=== PATIENT | female | born 1935 | race Caucasian/White ===

== ENCOUNTER 2016-10-23 17:13 | Inpatient (IN) | payer MEDICARE ==
[~2016-10-23] VITALS: Ht 157.5 cm; Wt 48.4 kg
[2016-10-23] MEDS ORDERED: DONETAB6 PO (17:53)
[2016-10-23] MEDS ORDERED: NAPR500T PO (17:53)
[2016-10-23] MEDS ORDERED: NAME5TAB13 PO (17:53)
[2016-10-23] MEDS ORDERED: NS 500 ML IV ONE (20:30)
[2016-10-23] MEDS ORDERED: ONDANSETRON 4MG/2ML VIAL (J2405) IV ONE (20:30)
[2016-10-23 21:15] LABS: BASO % 0.5 % (0.0-1.0); EOS # 0.1 K/mm3 (0.0-0.50); EOS % 0.9 % (0.0-3.0); LARGE UNSTAINED CELL # 0.1 K/mm3 (0.0-0.4); LARGE UNSTAINED CELL % 0.8 % (0.0-4.0); LYMPH % 10.4 % (24.0-44.0); MEAN CORPUSCULAR HEMOGLOBIN 33.2 pg (27.0-33.0); MEAN CORPUSCULAR HGB CONC 34.3 g/dl (32.0-36.5); MEAN CORPUSCULAR VOLUME 96.9 fl (80.0-96.0); MONO # 0.4 K/mm3 (0.0-0.8); MONO % 4.8 % (0.0-5.0); NEUTROPHILS # 7.1 K/mm3 (1.8-7.7); NEUTROPHILS % 82.6 % (36.0-66.0); PLATELET COUNT, AUTOMATED 236 k/mm3 (150-450); RED CELL DISTRIBUTION WIDTH 13.2 % (11.5-14.5); WHITE BLOOD COUNT 8.6 K/mm3 (4.0-10.0)
[2016-10-23 21:21] LABS: INR 0.91
[2016-10-23] MEDS ORDERED: LABETALOL HCL 100 MG/20 ML VIAL IV STA (21:22)
[2016-10-23 21:44] LABS: ALBUMIN/GLOBULIN RATIO 1.47 (1.00-1.93); ALKALINE PHOSPHATASE 94 U/L (45-117); ALT/SGPT 29 U/L (12-78); ANION GAP 12 MEQ/L (8-16); AST/SGOT 45 U/L (15-37); BILIRUBIN,DIRECT < 0.1 MG/DL (0.0-0.2); BILIRUBIN,TOTAL 0.7 MG/DL (0.2-1.0); BLOOD UREA NITROGEN 20 MG/DL (7-18); CALCIUM LEVEL 9.2 MG/DL (8.8-10.2); CARBON DIOXIDE LEVEL 23 MEQ/L (21-32); CHLORIDE LEVEL 93 MEQ/L (98-107); CREATININE FOR GFR 1.31 MG/DL (0.55-1.02); GLOMERULAR FILTRATION RATE 41.5 (>32); GLUCOSE, FASTING 122 MG/DL (83-110); POTASSIUM SERUM 3.9 MEQ/L (3.5-5.1); SODIUM LEVEL 128 MEQ/L (136-145); TOTAL PROTEIN 8.4 GM/DL (6.4-8.2)
--- NOTE | 2016-10-23 23:10 | REPUSA ---
CLINICAL HISTORY: Headache. TECHNIQUE: Multiple axial CT images were obtained through the brain without IV contrast material. COMMENTS: There is normal configuration of sella turcica. There are no intra or extra-axial collections. There is no mass effect or midline shift. There is no evidence of hematoma formation. No hydrocephalus is p resent. The ventricles are symmetrical. No abnormal calcifications are present. There is diffuse age-appropriate cerebellar and cerebral atrophy with proportionally dilated ventricl es and cortical sulci. There are bilateral periventricular and subcortical white matter hypolucencies compatible with chroni c microvascular disease. Otherwise, no significant focal abnormalities are seen either in the posterior fossa or supratentoria l compartment. IMPRESSION: 1. Age-appropriate cerebellar and cerebral atrophy. 2. Chronic microvascular disease. 3. No evidence of acute intracranial pathology. Thank you for your kind referral of this patient.
[2016-10-23] MEDS ORDERED: MEMA1TAB2 PO (23:27)
[2016-10-23] MEDS ORDERED: LEVO100T5 PO (23:30)
[2016-10-23] MEDS ORDERED: PANT40TA2 PO (23:30)
[2016-10-23] MEDS ORDERED: STOO100C PO (23:30)
[2016-10-23] MEDS ORDERED: VERA180C PO (23:30)
[2016-10-24] VITALS (9 sets, daily range): BP systolic 133–178; BP diastolic 62–99
[2016-10-24] MEDS: NS 1,000 ML IV SCH ×2 (02:15→14:46)
[2016-10-24] MEDS ORDERED: ASPIRIN 325 MG TAB PO ONE (03:30)
[2016-10-24] MEDS ORDERED: ATORVASTATIN 20 MG TAB PO ONE (03:30)
[2016-10-24] MEDS: hydrALAZINE INJ 20 MG/ML VIAL IV SCH ×5 (03:47→21:20)
--- NOTE | 2016-10-24 04:48 | HPE ---
DATE OF ADMISSION: 10/24/2016 PRIMARY CARE PROVIDER: Evita Andino DO. CHIEF COMPLAINT: Nausea, vomiting, hypertension. HISTORY OF PRESENT ILLNESS: Limited secondary to advanced dementia. History mostly taken from patient's family member. This is an 81-year-old female patient with underlying medical history as per family of advanced dementia, hypothyroidism, hypertension, Alzheimer's dementia, questionable history of CAD. Patient's was recently admitted to intensive care unit (ICU). Subsequently, patient had to move in with her nephew earlier this morning, and the nephew subsequently discovered patient has not been taking medications for a while and has not been eating as well. Earlier today patient was given her medication, which was filled in July. Subsequently, patient developed an episode of nausea, vomiting, nonbloody, nonbilious. Was brought to the hospital, found to be hypertensive with blood pressure in the 190s and 200 systolic, as well as hyponatremia with also elevated creatine phosphokinases (CPKs) with negative troponin. Labetalol was given for blood pressure control. Subsequently, patient is admitted to the hospitalist service. Patient denies any chest pain, pressure or discomfort, but is quite lethargic, minimum verbal. Denies any trouble breathing, shortness of breath, diarrhea, constipation, abdominal pain. No further episodes of nausea, vomiting in the hospital. ALLERGIES: No known drug allergies reported. PAST MEDICAL HISTORY: 1. Alzheimer's dementia. 2. Questionable chronic kidney disease (CKD). 3. Coronary arterial disease. 4. Hypothyroidism. 5. Hypertension. PAST SURGICAL HISTORY: History limited, reported surgery twice for small bowel obstruction, as well as a hysterectomy. SOCIAL HISTORY: Quit smoking 30 years ago. Denies alcohol usage. No illicit drug use. FAMILY HISTORY: Unable to obtain. REVIEW OF SYSTEMS: Limited secondary to patient's mental status. Nausea, vomiting reported by family. All other review of systems has been negative. HOME MEDICATIONS: - Colace 100 mg by mouth twice a day - donepezil 10 mg by mouth daily - Synthroid 100 mcg by mouth daily - memantine 10 mg by mouth twice a day - Naproxen 500 mg by mouth twice a day with meal - Protonix 40 mg by mouth daily - verapamil 180 mg by mouth daily PHYSICAL EXAMINATION: VITAL SIGNS: Temperature 97.4, pulse 65, respirations 20, blood pressure 137/99 , pulse oximetry 99% on room air. GENERAL: Patient alert, arousable, oriented times two. HEENT: Normocephalic, atraumatic. PULMONARY: Bilaterally clear to auscultation. CARDIAC: Regular S1, S2. ABDOMEN: Soft, nontender. Positive bowel sounds. EXTREMITIES: No edema bilateral lower extremities. EKG shows sinus rhythm with T-wave inversion in V4. LABORATORY: WBC 8.6, hemoglobin and hematocrit 13.8/40.1, platelets 236. Chemistry: Sodium 128, potassium 3.9, chloride 93, bicarbonate 23, BUN 20, creatinine 1.3. Troponin negative times two. Total CK 563 with negative CK-MB index. Lipase 222. CT of the head with no acute pathology. X-ray of the chest and abdomen within normal limits. ASSESSMENT AND PLAN: This is an 81-year-old female patient with underlying medical history of dementia, Alzheimer's dementia advanced, not taking much medication, poor oral, hypothyroidism, hypertension, questionable coronary arterial disease, presented with nausea, vomiting, and hypertensive urgency. 1. Hypertensive urgency. Patient's blood pressure much better. Goal blood pressure over the next 24 hours systolic 160s to 170s, diastolic 90-100. Hydralazine 10 mg intravenously (IV) as needed. Continue home medication of verapamil. 2. Elevated CKs. Troponin has been negative. EKG is nonspecific. Will give aspirin, statin, serial cardiac enzymes. Patient not having any chest pain. Telemetry monitoring. 3. Acute kidney injury. IV fluids. Follow BUN and creatinine. 4. Confusion. Unknown if this is the patient's baseline. Patient lives with her , who is currently in the intensive care unit (ICU). Neurologic checks. Will get MRI to rule out any intracranial pathology. Supportive care. 5. Hypothyroidism. Check thyroid function given patient has likely not taken her medication for a while. Continue Synthroid. 6. Alzheimer's dementia. Supportive care. Physical therapy. 7. Constipation. Bowel regimen as ordered. 8. Nausea, vomiting. Possibly secondary to hypertension. X-ray of the abdomen appreciated. Patient has not had any further episodes. Will continue to monitor. If patient has repeat episode, will get CT scan of the abdomen. Diet as tolerated. Zofran as needed. 9. Gastroesophageal reflux disease (GERD). Continue proton pump inhibitor (PPI). 10. Deep venous thrombosis (DVT) prophylaxis. Heparin subcutaneously. DISPOSITION PLANNING: Pending further workup, clinical improvement. Followup thyroid function. Addendum Note TSH sig elevation will give IV synthroid 200mcg x1 and c/w Synthroid IV 75 mcg. high risk of Myxedema MTDD
[2016-10-24 05:07] LABS: THYROXINE (T4) 0.9 UG/DL (4.5-12.0)
[2016-10-24] MEDS ORDERED: LEVOTHYROXINE 100MCG TABLET (0.1MG) PO SCH (06:00)
[2016-10-24] MEDS ORDERED: LEVOTHYROXINE 100 MCG (0.1MG) VIAL IV STA (07:14)
[2016-10-24 08:02] LABS: MEAN CORPUSCULAR HEMOGLOBIN 33.3 pg (27.0-33.0); MEAN CORPUSCULAR HGB CONC 34.8 g/dl (32.0-36.5); MEAN CORPUSCULAR VOLUME 95.7 fl (80.0-96.0); RED CELL DISTRIBUTION WIDTH 13.2 % (11.5-14.5); WHITE BLOOD COUNT 7.5 K/mm3 (4.0-10.0)
[2016-10-24 08:17] LABS: ALBUMIN/GLOBULIN RATIO 1.33 (1.00-1.93); BILIRUBIN,TOTAL 0.6 MG/DL (0.2-1.0); CALCIUM LEVEL 8.3 MG/DL (8.8-10.2); CREATININE FOR GFR 1.18 MG/DL (0.55-1.02); GLOMERULAR FILTRATION RATE 46.8 (>32); MAGNESIUM LEVEL 1.8 MG/DL (1.8-2.4)
[2016-10-24] MEDS: HEPARIN SOD (PORCINE) 5000 UNITS/ML VIAL SC SCH ×2 (09:00→21:18)
[2016-10-24] MEDS ORDERED: LEVOTHYROXINE 100 MCG (0.1MG) VIAL IV SCH (09:00)
[2016-10-24] MEDS ORDERED: DOCUSATE SODIUM 100 MG CAP PO SCH (09:00)
--- NOTE | 2016-10-24 09:09 | REP ---
Abdominal series: Three views. History: Abdominal pain. Findings: Upright chest radiograph demonstrates hyperinflated lungs without evidence of infiltrate. No free subdiaphragmatic air is seen. Heart size is borderline. Pulmonary vasculature is not increased. The aorta is slightly tortuous. EKG electrodes are seen. There is diffuse osteopenia. Supine and erect views of the abdomen show no evidence of free air or significant air fluid level. There is moderate stool in the rectum, question constipation. The left hip has been replaced. There is a dextroconvex curvature in the lumbar spine. Impression: Moderate stool in the rectum, question obstipation. Dextroconvex scoliosis. No other acute abnormality. Signed by Bill Shaw MD 10/24/2016 09:55 A
[2016-10-24] MEDS: ASPIRIN 81 MG ENTERIC TAB PO SCH (09:53)
[2016-10-24] MEDS: SENOKOT S TAB PO SCH ×2 (09:53→21:18)
[2016-10-24] MEDS: DONEPEZIL 5 MG TAB PO SCH (09:53)
[2016-10-24] MEDS: PANTOPRAZOLE 40MG TAB (PROTONIX) PO SCH (09:53)
[2016-10-24] MEDS ORDERED: MAG SULF 1GM/100ML (MAG RUN) 1 GM in APPROPRIATE DILUENT 1 EA IV ONE (11:45)
[2016-10-24] MEDS ORDERED: FLEET OIL RETENTION ENEMA PR PRN (13:00)
[2016-10-24] MEDS ORDERED: MOM 30ML SUSPENSION UDC PO PRN (13:00)
[2016-10-24] MEDS ORDERED: BISACODYL 10 MG SUPP PR PRN (13:00)
[2016-10-24 13:59] LABS: CALCIUM LEVEL 8.4 MG/DL (8.8-10.2); CREATININE FOR GFR 1.31 MG/DL (0.55-1.02); GLOMERULAR FILTRATION RATE 41.5 (>32); POTASSIUM SERUM 3.7 MEQ/L (3.5-5.1)
[2016-10-24] MEDS: VERAPAMIL 180 MG SR TAB PO SCH (14:53)
[2016-10-24] MEDS: HYDROCORTISONE 100 MG/2 ML VIAL (J1720) IV SCH ×2 (17:08→23:35)
[2016-10-24] MEDS: LIOTHYRONINE 25 MCG TAB PO SCH (17:08)
[2016-10-24] MEDS: ONDANSETRON 4MG/2ML VIAL (J2405) IV PRN (19:04)
[2016-10-24 19:22] LABS: CALCIUM LEVEL 8.6 MG/DL (8.8-10.2); CREATININE FOR GFR 1.29 MG/DL (0.55-1.02); GLOMERULAR FILTRATION RATE 42.2 (>32); POTASSIUM SERUM 3.6 MEQ/L (3.5-5.1)
--- NOTE | 2016-10-24 19:33 | ECGEPIP ---
Stationary ECG Study [facility] - ED Test Date: 2016-10-23 Pat Name: LETICIA GRIFFIN Department: Room: [place] [address] Gender: F [employer]: suellen : 1935 Requested By: LUISA NEW Order Number: [id number] Reading MD: Emily Rod Measurements Intervals [place] Rate: 72 P: 75 [place]: 175 QRS: 39 QRSD: 102 T: 221 QT: 422 QTc: 464 Interpretive Statements SINUS RHYTHM NONSPECIFIC ST & T-WAVE ABNORMALITY VS ISCHEMIA BASELINE ARTIFACT MAY AFFECT READING PROLONGED QTC DELAYED R WAVE PROGRESSION NO PRIOR ECG FOR COMPARISON CLINICAL CORRELATION ADVISED Electronically Signed On 10-24-2016 19:33:26 EDT by Emily Rod
[2016-10-24] MEDS: ATORVASTATIN 20 MG TAB PO SCH (21:18)
[2016-10-25] VITALS (7 sets, daily range): BP systolic 141–168; BP diastolic 69–90
[2016-10-25 00:49] LABS: CALCIUM LEVEL 8.7 MG/DL (8.8-10.2); CREATININE FOR GFR 1.29 MG/DL (0.55-1.02); GLOMERULAR FILTRATION RATE 42.2 (>32); POTASSIUM SERUM 3.6 MEQ/L (3.5-5.1)
[2016-10-25] MEDS: hydrALAZINE INJ 20 MG/ML VIAL IV SCH ×2 (03:57→10:00)
[2016-10-25 05:12] LABS: MEAN CORPUSCULAR HEMOGLOBIN 32.5 pg (27.0-33.0); MEAN CORPUSCULAR HGB CONC 33.9 g/dl (32.0-36.5); MEAN CORPUSCULAR VOLUME 95.8 fl (80.0-96.0); RED CELL DISTRIBUTION WIDTH 13.2 % (11.5-14.5); WHITE BLOOD COUNT 7.6 K/mm3 (4.0-10.0)
[2016-10-25 05:32] LABS: ALBUMIN 3.7 GM/DL (3.2-5.2); BILIRUBIN,TOTAL 0.8 MG/DL (0.2-1.0); CALCIUM LEVEL 8.7 MG/DL (8.8-10.2); CREATININE FOR GFR 1.33 MG/DL (0.55-1.02); GLOMERULAR FILTRATION RATE 40.8 (>32); MAGNESIUM LEVEL 1.6 MG/DL (1.8-2.4); POTASSIUM SERUM 3.9 MEQ/L (3.5-5.1); TOTAL PROTEIN 7.4 GM/DL (6.4-8.2)
[2016-10-25] MEDS: LIOTHYRONINE 25 MCG TAB PO SCH (06:00)
[2016-10-25] MEDS: MAG SULF 1GM/100ML (MAG RUN) 1 GM in APPROPRIATE DILUENT 1 EA IV SCH ×2 (06:41→09:15)
--- NOTE | 2016-10-25 07:22 | ECHO ---
DATE OF PROCEDURE: 10/24/2016 DATE OF : 1935 AGE: 81 GENDER: Female HEIGHT: 64 inches WEIGHT: 88 pounds BODY SURFACE AREA: 1.45 meters squared INPATIENT: Progressive care unit (PCU), Room 3213 REFERRING PHYSICIAN: Dr. Krishna INDICATION: Abnormal EKG MEASUREMENTS, 2D measurements: RV: 2.3 cm LV: 3.4 cm Septum: 1.0 cm Posterior wall: 0.9 cm Aortic root: 3.0 cm LA: 3.2 cm LVEF: 55% Doppler measurements: AV: 0.76 meters per second LVOT: 0.74 meters per second MV-E: 49, A: 70, EA ratio: 0.7 Early mitral deceleration time: 327 milliseconds E prime: 6, A prime: 8, E/E prime ratio: 8 PV: 0.7 meters per second Pulmonary artery acceleration time: 106 milliseconds PASP: 28-31 mmHg IVC: 1.5 cm Normal sinus rhythm without intraventricular conduction disturbance. Two-dimensional, M-mode, pulsed and continuous wave Doppler, tissue Doppler and color flow Doppler were performed. CONCLUSIONS: Normal left ventricular size, wall thickness and wall motion. Normal left atrial size but Doppler evidence of a degree of impaired LV diastolic dysfunction in keeping with her age. Estimated mean left atrial pressure was within normal limits. Normal right heart chamber sizes and wall motion with Doppler evidence of pulmonary pressures upper limits of normal to marginally increased. Normal IVC size and collapse against an elevated central venous pressure. Subtle aortic valvular sclerosis without stenosis and very mild insufficiency. Mild mitral annular thickening and thickening of the mitral leaflets but adequate leaflet excursion and only trace insufficiency. No intracardiac mass or pericardial effusion.
[2016-10-25] MEDS: HEPARIN SOD (PORCINE) 5000 UNITS/ML VIAL SC SCH ×2 (09:15→19:54)
[2016-10-25] MEDS: SENOKOT S TAB PO SCH ×2 (09:16→19:55)
[2016-10-25] MEDS: PANTOPRAZOLE 40MG TAB (PROTONIX) PO SCH (09:16)
[2016-10-25] MEDS: ASPIRIN 81 MG ENTERIC TAB PO SCH (09:16)
[2016-10-25] MEDS: HYDROCORTISONE 100 MG/2 ML VIAL (J1720) IV SCH ×2 (09:16→17:42)
[2016-10-25] MEDS: DONEPEZIL 5 MG TAB PO SCH (09:16)
[2016-10-25] MEDS: LEVOTHYROXINE 100 MCG (0.1MG) VIAL IV SCH (09:17)
[2016-10-25] MEDS: VERAPAMIL 180 MG SR TAB PO SCH (09:45)
--- NOTE | 2016-10-25 11:17 | IPNPDOC ---
Date Seen The patient was seen on 10/25/16. Progress Note SUBJECTIVE: Patient tells me that she feels tired but she denies abdominal pain she denies nausea tells me she has not vomited or had diarrhea. The patient is oriented to person but she and she knows she is in [place] [facility] she is in the hospital she does not remember why she does not remember what was occurring at home prior to her hospitalization. OBJECTIVE PHYSICAL EXAMINATION: VITAL SIGNS: Please see below. GENERAL: Frail elderly female lying in bed at a 20 angle she is sleeping peacefully is entered the room but easily arousable to verbal stimuli she does not appear to be in any acute distress HEENT: Pupils are equally round reactive to light she has moist mucous membranes are some decrease of the left nasolabial fold face is symmetric cranial 2 through 12 are grossly intact CARDIOVASCULAR: S1-S2 no additional heart sounds appreciated. RESPIRATORY:. Clear To auscultation bilaterally. ABDOMINAL: Bowel sounds present abdomen soft is nontender even to deep palpation EXTREMITIES: No clubbing cyanosis or edema NEUROLOGICAL: Her exam is nonfocal LABORATORY DATA: Please see below. MICROBIOLOGY: Please see below. IMAGING: CT head:1. Age-appropriate cerebellar and cerebral atrophy. 2. Chronic microvascular disease. 3. No evidence of acute intracranial pathology. Thank you for your kind referral of this patient. Abdominal plain film: Moderate stool in the rectum, question obstipation. Dextroconvex scoliosis. No other acute abnormality. Echocardiogram: Normal left ventricular size, wall thickness and wall motion. Normal left atrial size but Doppler evidence of a degree of impaired LV diastolic dysfunction in keeping with her age. Estimated mean left atrial pressure was within normal limits. Normal right heart chamber sizes and wall motion with Doppler evidence of pulmonary pressures upper limits of normal to marginally increased. Normal IVC size and collapse against an elevated central venous pressure. Subtle aortic valvular sclerosis without stenosis and very mild insufficiency. Mild mitral annular thickening and thickening of the mitral leaflets but adequate leaflet excursion and only trace insufficiency.. DVT prophylaxis ordered?: Heparin subcutaneous ASSESSMENT AND PLAN: This is a 81-year-old female with severe hypothyroidism pre -coma, hyponatremia dementia nausea vomiting constipation in the setting of medical nonadherence. PROBLEMS: 1. Severe hypothyroidism pre-coma: The patient was having nausea vomiting and fairly lethargic at the time of her presentation. She was noted to have significantly elevated TSH. She did receive a one-time bolus of 200 g of IV levothyroxine and she is now 75 g of IV levothyroxine daily. She is also on hydrocortisone 100 mg every 8 hours as well as levothyroxine problem half micrograms by mouth daily. She is received this for 24 hours after 48 hours we' ll recheck a TSH she is more awake and does appear to be improving with this treatment regimen 2. Hyponatremia: Initially didn't improve somewhat with IV fluids I suspect she was mildly dehydrated. But this is also likely multifactorial hyponatremia with mineral glucocorticoid deficiency as well as significant hypothyroidism her urine sodium and urine osmolality are also somewhat suggestive of possible SIADH and as such for the time being we will fluid restrict provided with mineral mineral glucocorticoids and thyroid replacement continue to monitor her sodium closely. 3. Nausea vomiting: Possibly related to constipation patient started on an aggressive bowel regimen also possibly related to severe hypothyroidism. At this time the patient appears to be tolerating a regular diet quite well she's had no episodes of nausea or vomiting. 4. Hypertensive urgency: The patient was quite hypertensive when she presented this is likely related to the medical nonadherence. The patient was restarted on her verapamil 180 mg daily and this appears to be enough to control her blood pressure quite well discontinue the when necessary hydralazine as she is not requiring it. Her echocardiogram reveals evidence of hypertensive heart disease are not surprising given her history of nonadherence 5. Dementia: The patient is on donepezil from my discussions with the patient's niece yesterday it appears as though that at the present time she is not far from her baseline and that disorientation is fairly normal for her. The patient and her reportedly been living very noncompliant and not answering the door of her visitors and had been out of contact with most people for quite some time for recently of medical intensive care unit I suspect this patient will require either significant family support or placement once medically stable she obviously cannot care for herself. 6. Coronary artery disease: A documented history she is on aspirin and statin she is not on a beta iain she is on a calcium channel iain will defer to her outpatient providers there is no clear reason for this choice that I'm aware of. 7. Chronic kidney disease: Appears to be relatively stable is unclear what her baseline is on another does not appear to be any significant change throughout her stay thus far DISPOSITION: We'll continue to follow this patient closely as her clinical status improves she'll likely require placement PTOT PFS consults placed. VS, I&O, 24H, [facility] Vital Signs/I&O Vital Signs Date Time Temp Pulse Resp B/P (MAP) Pulse Ox O2 Delivery O2 Flow Rate FiO2 10/25/16 10:00 148/72 10/25/16 09:45 61 10/25/16 07:25 98.0 18 98 Room Air I&O- Last 24 Hours up to 6 AM 10/25/16 05:59 Intake Total 1370 ml Output Total 1200 ml Balance 170 ml Laboratory Data 24H LABS Laboratory Tests 2 10/24/16 11:52: Anion Gap 9, Glomerular Filtration Rate 41.5, Blood Urea Nitrogen 17, Creatinine 1.31H, Sodium Level 127L, Potassium Level 3.7, Chloride Level 94L, Carbon Dioxide Level 24, Calcium Level 8.4L 10/24/16 18:42: Anion Gap 10, Glomerular Filtration Rate 42.2, Blood Urea Nitrogen 18, Creatinine 1.29H, Sodium Level 127L, Potassium Level 3.6, Chloride Level 94L, Carbon Dioxide Level 23, Calcium Level 8.6L 10/24/16 20:25: Urine Random Creatinine 110.0 10/25/16 00:00: Anion Gap 11, Glomerular Filtration Rate 42.2, Blood Urea Nitrogen 16, Creatinine 1.29H, Sodium Level 128L, Potassium Level 3.6, Chloride Level 95L, Carbon Dioxide Level 22, Calcium Level 8.7L 10/25/16 04:49: Anion Gap 10, Glomerular Filtration Rate 40.8, Blood Urea Nitrogen 16, Creatinine 1.33H, Sodium Level 128L, Potassium Level 3.9, Chloride Level 95L, Carbon Dioxide Level 23, Calcium Level 8.7L, Aspartate Amino Transf (AST/SGOT) 66H, Alanine Aminotransferase (ALT/SGPT) 30, Alkaline Phosphatase 78, Total Bilirubin 0.8, Total Protein 7.4, Albumin 3.7, Magnesium Level 1.6L, Albumin/ Globulin Ratio 1.00 CBC/BMP Laboratory Tests 10/24/16 11:52 Calcium Level 8.4 L 10/24/16 18:42 Calcium Level 8.6 L 10/25/16 00:00 Calcium Level 8.7 L 10/25/16 04:49 Calcium Level 8.7 L, Red Blood Count 4.05, Mean Corpuscular Volume 95.8, Mean Corpuscular Hemoglobin 32.5, Mean Corpuscular Hemoglobin Concent 33.9, Red Cell Distribution Width 13.2, Aspartate Amino Transf (AST/SGOT) 66 H, Alanine Aminotransferase (ALT/SGPT) 30, Alkaline Phosphatase 78, Total Bilirubin 0.8, Total Protein 7.4, Albumin 3.7 YASMANI LEACH MD Oct 25, 2016 11:17
[2016-10-25] MEDS: ONDANSETRON 4MG/2ML VIAL (J2405) IV PRN (12:12)
[2016-10-25] MEDS: ACETAMINOPHEN TAB 650MG DOSE (2X325MG) PO PRN (12:14)
[2016-10-25 16:28] LABS: CALCIUM LEVEL 8.6 MG/DL (8.8-10.2); CREATININE FOR GFR 1.33 MG/DL (0.55-1.02); GLOMERULAR FILTRATION RATE 40.8 (>32); POTASSIUM SERUM 3.6 MEQ/L (3.5-5.1)
[2016-10-25] MEDS ORDERED: METOCLOPRAMIDE INJ 10MG/2ML VIAL (J2765) IV ONE (17:00)
[2016-10-25] MEDS: NS 1,000 ML IV SCH (19:54)
[2016-10-25] MEDS: ATORVASTATIN 20 MG TAB PO SCH (19:55)
[2016-10-25] MEDS: BISACODYL 5 MG TAB PO PRN (22:45)
[2016-10-26] MEDS: HYDROCORTISONE 100 MG/2 ML VIAL (J1720) IV SCH ×3 (00:21→16:47)
[2016-10-26 00:41] LABS: CALCIUM LEVEL 8.7 MG/DL (8.8-10.2); CREATININE FOR GFR 1.26 MG/DL (0.55-1.02); GLOMERULAR FILTRATION RATE 43.4 (>32); POTASSIUM SERUM 3.6 MEQ/L (3.5-5.1)
[2016-10-26] MEDS: NS 1,000 ML IV SCH ×2 (05:13→16:47)
[2016-10-26] MEDS: LIOTHYRONINE 25 MCG TAB PO SCH (05:17)
[2016-10-26 06:00] VITALS: BP 164/98
[2016-10-26 06:04] LABS: MEAN CORPUSCULAR HEMOGLOBIN 33.5 pg (27.0-33.0); MEAN CORPUSCULAR HGB CONC 34.9 g/dl (32.0-36.5); WHITE BLOOD COUNT 8.4 K/mm3 (4.0-10.0)
[2016-10-26 06:36] LABS: ALBUMIN 3.7 GM/DL (3.2-5.2); BILIRUBIN,TOTAL 0.6 MG/DL (0.2-1.0); CALCIUM LEVEL 8.5 MG/DL (8.8-10.2); CREATININE FOR GFR 1.27 MG/DL (0.55-1.02); MAGNESIUM LEVEL 2.6 MG/DL (1.8-2.4); POTASSIUM SERUM 3.8 MEQ/L (3.5-5.1); TOTAL PROTEIN 7.4 GM/DL (6.4-8.2)
[2016-10-26] MEDS: ASPIRIN 81 MG ENTERIC TAB PO SCH (09:43)
[2016-10-26] MEDS: SENOKOT S TAB PO SCH ×2 (09:43→20:18)
[2016-10-26] MEDS: DONEPEZIL 5 MG TAB PO SCH (09:43)
[2016-10-26] MEDS: PANTOPRAZOLE 40MG TAB (PROTONIX) PO SCH (09:43)
[2016-10-26] MEDS: VERAPAMIL 180 MG SR TAB PO SCH (09:43)
[2016-10-26] MEDS: LEVOTHYROXINE 100 MCG (0.1MG) VIAL IV SCH (09:44)
[2016-10-26] MEDS: HEPARIN SOD (PORCINE) 5000 UNITS/ML VIAL SC SCH ×2 (09:46→20:18)
--- NOTE | 2016-10-26 11:45 | REP ---
REASON: Dyspnea. COMPARISON: Frontal view obtained as part of an abdominal series, 10/23/2016. The technique utilized in obtaining the radiograph has magnified the cardiac silhouette and accentuated the interstitial markings. AP and left lateral views were obtained. The cardiomediastinal silhouette is unchanged. There is posterior sulcus blunting seen only on the lateral view possibly secondary to lung field hyperexpansion. No definite acute patchy parenchymal opacities or pleural effusions have developed. Minimal left CP angle blunting seen on the frontal view does not exclude the possibility of a minimal left pleural effusion. The bones are demineralized, status quo. IMPRESSION: Chronic changes and other findings as described above. Signed by Travis Wynn DO 10/26/2016 03:58 P
[2016-10-26 13:01] LABS: CALCIUM LEVEL 8.4 MG/DL (8.8-10.2); CREATININE FOR GFR 1.32 MG/DL (0.55-1.02); GLOMERULAR FILTRATION RATE 41.1 (>32); POTASSIUM SERUM 3.6 MEQ/L (3.5-5.1)
--- NOTE | 2016-10-26 13:45 | REP ---
REASON: Weakness all over. 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 There is evidence of cross-filling of the A2 segment of the right anterior cerebral artery, which is seen to be patent throughout. There is no evidence of an aneurysm or arteriovenous malformation. There is evidence of narrowing of the posterior cerebral artery bilaterally and there is evidence of narrowing of the basil artery. The vertebral arteries appear congenitally small. There is evidence of atherosclerotic change seen in the internal carotid artery intracavernous portion and carotid siphon bilaterally. IMPRESSION: Chronic changes as described above. Signed by Travis Wynn DO 10/26/2016 03:59 P
--- NOTE | 2016-10-26 13:50 | REP ---
REASON: Rule out CVA. The patient is weak all over. PRIORS: None. The craniovertebral junction is within normal limits. There is no abnormal signal seen in the imaged portion of the spinal cord. There is ventricular and sulcal prominence. Diffuse T2 hypersignal and FLAIR hypersignal is seen throughout the deep cerebral white matter particularly in the periventricular regions. There is no mass or mass effect. There are no extra-axial fluid collections. No abnormal signal is seen on DWI or ADC mapped imaging. The posterior fossa is within normal limits for the patient's age. The imaged paranasal sinuses and left mastoid air cells are clear. Slight T2 hypersignal is seen in the right mastoid air cells. IMPRESSION: 1. There is cerebral and cerebellar atrophy with extensive deep cerebral white matter ischemic change. 2. Possible mild right mastoiditis, correlate clinically. Signed by Travis Wynn DO 10/26/2016 03:59 P
[2016-10-26 14:00] VITALS: BP 118/56
[2016-10-26] MEDS: ONDANSETRON 4MG/2ML VIAL (J2405) IV PRN (15:46)
[2016-10-26 17:51] LABS: CALCIUM LEVEL 8.2 MG/DL (8.8-10.2); CREATININE FOR GFR 1.24 MG/DL (0.55-1.02); GLOMERULAR FILTRATION RATE 44.2 (>32); POTASSIUM SERUM 3.8 MEQ/L (3.5-5.1)
--- NOTE | 2016-10-26 18:33 | IPNPDOC ---
Date Seen The patient was seen on 10/26/16. Progress Note SUBJECTIVE: Patient tells me that she feels tired but she does wake up to speak to me and informs that she knows her did pass away yesterday. She remembers me from previous days exam. OBJECTIVE PHYSICAL EXAMINATION: VITAL SIGNS: Please see below. GENERAL: Frail elderly female lying in bed at a 20 angle she is sleeping peacefully is entered the room but easily arousable to verbal stimuli she does not appear to be in any acute distress, she is oriented to person, place, not to time (year/month/date none) HEENT: Pupils are equally round reactive to light she has moist mucous membranes are some decrease of the left nasolabial fold face is symmetric cranial 2 through 12 are grossly intact CARDIOVASCULAR: S1-S2 no additional heart sounds appreciated. RESPIRATORY:. Clear To auscultation bilaterally. ABDOMINAL: Bowel sounds present abdomen soft is nontender even to deep palpation EXTREMITIES: No clubbing cyanosis or edema NEUROLOGICAL: Her exam is nonfocal LABORATORY DATA: Please see below. MICROBIOLOGY: Please see below. IMAGING: CT head:1. Age-appropriate cerebellar and cerebral atrophy. 2. Chronic microvascular disease. 3. No evidence of acute intracranial pathology. Thank you for your kind referral of this patient. Abdominal plain film: Moderate stool in the rectum, question obstipation. Dextroconvex scoliosis. No other acute abnormality. Echocardiogram: Normal left ventricular size, wall thickness and wall motion. Normal left atrial size but Doppler evidence of a degree of impaired LV diastolic dysfunction in keeping with her age. Estimated mean left atrial pressure was within normal limits. Normal right heart chamber sizes and wall motion with Doppler evidence of pulmonary pressures upper limits of normal to marginally increased. Normal IVC size and collapse against an elevated central venous pressure. Subtle aortic valvular sclerosis without stenosis and very mild insufficiency. Mild mitral annular thickening and thickening of the mitral leaflets but adequate leaflet excursion and only trace insufficiency.. DVT prophylaxis ordered?: Heparin subcutaneous ASSESSMENT AND PLAN: This is a 81-year-old female with severe hypothyroidism pre -coma, hyponatremia dementia nausea vomiting constipation in the setting of medical nonadherence. PROBLEMS: 1. Severe hypothyroidism pre-coma: The patient was having nausea vomiting and fairly lethargic at the time of her presentation. She was noted to have significantly elevated TSH. She did receive a one-time bolus of 200 g of IV levothyroxine and she is now 75 g of IV levothyroxine daily. She is also on hydrocortisone 100 mg every 8 hours as well as liothyroxine by mouth daily. Today we will recheck a TSH and see if we are able to being scaling back her regimen. 2. Hyponatremia: likely multifactorial hyponatremia with some hypovolemia, mineral glucocorticoid deficiency as well as significant hypothyroidism. For the time being we will c/w IVF and with mineral mineral glucocorticoids and thyroid replacement continue to monitor her sodium closely. Thus far it has been stable and I suspect hormone def related. 3. Nausea vomiting: Possibly related to constipation patient started on an aggressive bowel regimen also possibly related to severe hypothyroidism. At this time the patient appears to be tolerating a regular diet quite well she's had no episodes of nausea or vomiting she has not yet had a bowel movement 4. Hypertensive urgency: The patient was quite hypertensive when she presented this is likely related to the medical nonadherence. The patient was restarted on her verapamil 180 mg daily and this appears to be enough to control her blood pressure quite well discontinue the when necessary hydralazine as she is not requiring it. Her echocardiogram reveals evidence of hypertensive heart disease are not surprising given her history of nonadherence 5. Dementia: The patient is on donepezil from my discussions with the patient's niece yesterday it appears as though that at the present time she is not far from her baseline and that disorientation is fairly normal for her. The patient and her reportedly been living very noncompliant and not answering the door of her visitors and had been out of contact with most people for quite some time for recently of medical intensive care unit I suspect this patient will require either significant family 24/7 support or SNF placement once medically stable as she obviously cannot care for herself. 6. Coronary artery disease: A documented history she is on aspirin and statin she is not on a beta iain she is on a calcium channel iain will defer to her outpatient providers there is no clear reason for this choice that I'm aware of. 7. Chronic kidney disease: Appears to be relatively stable is unclear what her baseline is on another does not appear to be any significant change throughout her stay thus far DISPOSITION: 24/7 care with family vs. SNF when medically stable is most likely VS, I&O, 24H, Fishbone Vital Signs/I&O Vital Signs Date Time Temp Pulse Resp B/P (MAP) Pulse Ox O2 Delivery O2 Flow Rate FiO2 10/26/16 14:00 99.1 68 18 118/56 (76) 93 Room Air I&O- Last 24 Hours up to 6 AM 10/26/16 05:59 Intake Total 660 ml Output Total 500 ml Balance 160 ml Laboratory Data 24H LABS Laboratory Tests 2 10/26/16 00:08: Anion Gap 7L, Glomerular Filtration Rate 43.4, Blood Urea Nitrogen 20H, Creatinine 1.26H, Sodium Level 126L, Potassium Level 3.6, Chloride Level 93L, Carbon Dioxide Level 26, Calcium Level 8.7L 10/26/16 05:35: Anion Gap 9, Glomerular Filtration Rate 43.0, Blood Urea Nitrogen 21H, Creatinine 1.27H, Sodium Level 127L, Potassium Level 3.8, Chloride Level 94L, Carbon Dioxide Level 24, Calcium Level 8.5L, Aspartate Amino Transf (AST/SGOT) 53H, Alanine Aminotransferase (ALT/SGPT) 28, Alkaline Phosphatase 73, Total Bilirubin 0.6, Total Protein 7.4, Albumin 3.7, Magnesium Level 2.6H, Albumin/ Globulin Ratio 1.00 10/26/16 11:46: Anion Gap 14, Glomerular Filtration Rate 41.1, Blood Urea Nitrogen 25H, Creatinine 1.32H, Sodium Level 129L, Potassium Level 3.6, Chloride Level 95L, Carbon Dioxide Level 20L, Calcium Level 8.4L 10/26/16 17:22: Anion Gap 9, Glomerular Filtration Rate 44.2, Blood Urea Nitrogen 28H, Creatinine 1.24H, Sodium Level 127L, Potassium Level 3.8, Chloride Level 95L, Carbon Dioxide Level 23, Calcium Level 8.2L CBC/BMP Laboratory Tests 10/26/16 00:08 Calcium Level 8.7 L 10/26/16 05:35 Calcium Level 8.5 L, Red Blood Count 3.91 L, Mean Corpuscular Volume 96.0, Mean Corpuscular Hemoglobin 33.5 H, Mean Corpuscular Hemoglobin Concent 34.9, Red Cell Distribution Width 13.0, Aspartate Amino Transf (AST/SGOT) 53 H, Alanine Aminotransferase (ALT/SGPT) 28, Alkaline Phosphatase 73, Total Bilirubin 0.6, Total Protein 7.4, Albumin 3.7 6/19/17 11:46 Calcium Level 8.4 L 10/26/16 17:22 Calcium Level 8.2 L YASMANI LEACH MD Oct 26, 2016 18:33
[2016-10-26] MEDS: ATORVASTATIN 20 MG TAB PO SCH (20:18)
[2016-10-26 22:00] VITALS: BP 151/84
[2016-10-26 23:57] LABS: CALCIUM LEVEL 8.2 MG/DL (8.8-10.2); CREATININE FOR GFR 1.22 MG/DL (0.55-1.02); POTASSIUM SERUM 3.7 MEQ/L (3.5-5.1)
[2016-10-27] MEDS: HYDROCORTISONE 100 MG/2 ML VIAL (J1720) IV SCH ×4 (00:26→23:18)
[2016-10-27] MEDS: NS 1,000 ML IV SCH ×3 (00:26→20:02)
[2016-10-27] MEDS: LIOTHYRONINE 25 MCG TAB PO SCH (05:22)
[2016-10-27 05:50] LABS: MEAN CORPUSCULAR HEMOGLOBIN 33.3 pg (27.0-33.0); MEAN CORPUSCULAR HGB CONC 34.3 g/dl (32.0-36.5); MEAN CORPUSCULAR VOLUME 97.3 fl (80.0-96.0); RED CELL DISTRIBUTION WIDTH 13.3 % (11.5-14.5); WHITE BLOOD COUNT 10.2 K/mm3 (4.0-10.0)
[2016-10-27 06:00] VITALS: BP 156/68
[2016-10-27 06:04] LABS: ALBUMIN 3.4 GM/DL (3.2-5.2); ALBUMIN/GLOBULIN RATIO 0.92 (1.00-1.93); BILIRUBIN,TOTAL 0.5 MG/DL (0.2-1.0); CREATININE FOR GFR 1.18 MG/DL (0.55-1.02); GLOMERULAR FILTRATION RATE 46.8 (>32); MAGNESIUM LEVEL 2.5 MG/DL (1.8-2.4); POTASSIUM SERUM 3.8 MEQ/L (3.5-5.1); TOTAL PROTEIN 7.1 GM/DL (6.4-8.2)
[2016-10-27] MEDS: DONEPEZIL 5 MG TAB PO SCH (09:18)
[2016-10-27] MEDS: VERAPAMIL 180 MG SR TAB PO SCH (09:19)
[2016-10-27] MEDS: ASPIRIN 81 MG ENTERIC TAB PO SCH (09:19)
[2016-10-27] MEDS: SENOKOT S TAB PO SCH ×2 (09:20→20:02)
[2016-10-27] MEDS: PANTOPRAZOLE 40MG TAB (PROTONIX) PO SCH (09:20)
[2016-10-27] MEDS: HEPARIN SOD (PORCINE) 5000 UNITS/ML VIAL SC SCH ×2 (09:21→20:02)
[2016-10-27] MEDS: LEVOTHYROXINE 100 MCG (0.1MG) VIAL IV SCH (09:21)
[2016-10-27 14:00] VITALS: BP 162/78
[2016-10-27] MEDS ORDERED: METOCLOPRAMIDE INJ 10MG/2ML VIAL (J2765) IV PRN (14:30)
--- NOTE | 2016-10-27 18:00 | IPNPDOC ---
Subjective Date Seen The patient was seen on 10/27/16. Subjective Chief Complaint/HPI The patient is a 81-year-old female admitted with a reason for visit of Hypertensive Emergency/Vomiting. Events since last encounter no acute events, denied cp, sob, abd pain, reported nausea, no vomiting. Con't to be weak General: Reports: Malaise, Denies: Chills Constitutional: Denies: Chills, Fever Eyes: Denies: Pain ENT: Denies: Head Aches, Ear Pain Pulmonary: Denies: Dyspnea, Cough Cardiovascular: Denies: Chest Pain, Palpitations Gastrointestinal: Reports: Nausea, Denies: Vomiting Musculoskeletal: Denies: Neck Pain, Back Pain Objective Physical Examination General Exam: Positive: Alert, No Acute Distress, Other (frail) Eye Exam: Positive: PERRLA, EOMI Chest Exam: Positive: Clear to auscultation, Normal air movement Heart Exam: Positive: Rate Normal, Normal S1, Normal S2 Abdomen Exam: Positive: BS Hypoactive, Soft, Tenderness, Hepatospenomegaly Extremity Exam: Negative: Clubbing, Cyanosis, Edema Assessment /Plan Assessment This is an 81-year-old female patient with underlying medical history of dementia, Alzheimer's dementia advanced, not taking much medication, poor oral, hypothyroidism, hypertension, questionable coronary arterial disease, a/w severe hypothyroid precoma, hyponatremia, n/v, constipation Problems (1) Severe hypothyroidism Problem Text: patient was having nausea vomiting and fairly lethargic at the time of her presentation. She was noted to have significantly elevated TSH. She did receive a one-time bolus of 200 g of IV levothyroxine and she is now 75 g of IV levothyroxine daily. She is also on hydrocortisone 100 mg every 8 hours as well as liothyroxine by mouth daily. recheck thyroid profile Q2 days, dc T3 once level normalize (2) Hyponatremia Problem Text: likely multifactorial hyponatremia with some hypovolemia, mineral glucocorticoid deficiency as well as significant hypothyroidism. For the time being we will c/w IVF and with mineral mineral glucocorticoids and thyroid replacement continue to monitor her sodium closely. Thus far it has been stable (3) Nausea & vomiting Problem Text: Possibly related to constipation patient started on an aggressive bowel regimen also possibly related to severe hypothyroidism. At this time the patient appears to be tolerating a regular diet quite well she's had no episodes vomiting (4) Hypertensive urgency Problem Text: related to the medical nonadherence. The patient was restarted on her verapamil 180 mg daily and this appears to be enough to control her blood pressure quite well discontinue the when necessary hydralazine as she is not requiring it. Her echocardiogram reveals evidence of hypertensive heart disease. (5) Dementia Problem Text: supportive care, PFS, dispo planning 30/11 care (6) CAD (coronary artery disease) Problem Text: c/w current med (7) CKD (chronic kidney disease) Problem Text: f/u bun/ cr Plan/VTE VTE Prophylaxis Ordered?: Yes (heparin SQ) Disposition Pending clinical improvement, PFS VS, I&O, 24H, Fishbone Vital Signs/I&O Vital Signs Date Time Temp Pulse Resp B/P (MAP) Pulse Ox O2 Delivery O2 Flow Rate FiO2 10/27/16 14:00 98.2 67 18 162/78 (106) 95 Room Air I&O- Last 24 Hours up to 6 AM 10/27/16 06:00 Intake Total 2960 ml Output Total 251 ml Balance 2709 ml Laboratory Data 24H LABS Laboratory Tests 2 10/26/16 23:25: Anion Gap 10, Glomerular Filtration Rate 45.0, Blood Urea Nitrogen 27H, Creatinine 1.22H, Sodium Level 129L, Potassium Level 3.7, Chloride Level 97L, Carbon Dioxide Level 22, Calcium Level 8.2L 10/27/16 05:20: Anion Gap 9, Glomerular Filtration Rate 46.8, Blood Urea Nitrogen 25H, Creatinine 1.18H, Sodium Level 129L, Potassium Level 3.8, Chloride Level 97L, Carbon Dioxide Level 23, Calcium Level 8.0L, Aspartate Amino Transf (AST/SGOT) 41H, Alanine Aminotransferase (ALT/SGPT) 24, Alkaline Phosphatase 75, Total Bilirubin 0.5, Total Protein 7.1, Albumin 3.4, Magnesium Level 2.5H, Albumin/ Globulin Ratio 0.92L CBC/BMP Laboratory Tests 10/26/16 23:25 Calcium Level 8.2 L 10/27/16 05:20 Calcium Level 8.0 L, Red Blood Count 3.60 L, Mean Corpuscular Volume 97.3 H, Mean Corpuscular Hemoglobin 33.3 H, Mean Corpuscular Hemoglobin Concent 34.3, Red Cell Distribution Width 13.3, Aspartate Amino Transf (AST/SGOT) 41 H, Alanine Aminotransferase (ALT/SGPT) 24, Alkaline Phosphatase 75, Total Bilirubin 0.5, Total Protein 7.1, Albumin 3.4 GOPI PEREZ MD Oct 27, 2016 18:00
[2016-10-27] MEDS: ATORVASTATIN 20 MG TAB PO SCH (20:02)
[2016-10-27 22:00] VITALS: BP 153/84
[2016-10-28] MEDS: NS 1,000 ML IV SCH (05:40)
[2016-10-28] MEDS: LIOTHYRONINE 25 MCG TAB PO SCH (05:40)
[2016-10-28 06:00] VITALS: BP 162/90
[2016-10-28 06:08] LABS: MEAN CORPUSCULAR VOLUME 97.2 fl (80.0-96.0); WHITE BLOOD COUNT 9.8 K/mm3 (4.0-10.0)
[2016-10-28 06:27] LABS: ALBUMIN/GLOBULIN RATIO 0.83 (1.00-1.93); BILIRUBIN,TOTAL 0.3 MG/DL (0.2-1.0); CALCIUM LEVEL 7.7 MG/DL (8.8-10.2); CREATININE FOR GFR 1.03 MG/DL (0.55-1.02); GLOMERULAR FILTRATION RATE 54.7 (>32); MAGNESIUM LEVEL 2.4 MG/DL (1.8-2.4); POTASSIUM SERUM 3.4 MEQ/L (3.5-5.1); TOTAL PROTEIN 6.6 GM/DL (6.4-8.2)
[2016-10-28 06:33] LABS: THYROXINE (T4) 5.7 UG/DL (4.5-12.0)
[2016-10-28] MEDS ORDERED: POTASSIUM CHLORIDE 10 MEQ SR TABLET PO ONE (07:30)
[2016-10-28] MEDS: DONEPEZIL 5 MG TAB PO SCH (09:15)
[2016-10-28] MEDS: ASPIRIN 81 MG ENTERIC TAB PO SCH (09:16)
[2016-10-28] MEDS: SENOKOT S TAB PO SCH ×2 (09:16→21:20)
[2016-10-28] MEDS: amLODIPine 5 MG TAB PO SCH (09:17)
[2016-10-28] MEDS: HEPARIN SOD (PORCINE) 5000 UNITS/ML VIAL SC SCH ×2 (09:18→21:20)
[2016-10-28] MEDS: HYDROCORTISONE 100 MG/2 ML VIAL (J1720) IV SCH ×2 (09:19→15:59)
[2016-10-28] MEDS: LEVOTHYROXINE 100 MCG (0.1MG) VIAL IV SCH (09:21)
[2016-10-28] MEDS: PANTOPRAZOLE 40MG TAB (PROTONIX) PO SCH (09:25)
[2016-10-28] MEDS: VERAPAMIL 180 MG SR TAB PO SCH (09:25)
[2016-10-28] MEDS: DRONABINOL 2.5 MG CAP (MARINOL) PO SCH ×2 (13:37→18:14)
[2016-10-28 14:00] VITALS: BP 141/65
[2016-10-28] MEDS: ONDANSETRON 4MG/2ML VIAL (J2405) IV PRN (18:14)
--- NOTE | 2016-10-28 18:14 | IPNPDOC ---
Subjective Date Seen The patient was seen on 10/28/16. Subjective Chief Complaint/HPI The patient is a 81-year-old female admitted with a reason for visit of Hypertensive Emergency/Vomiting. Events since last encounter Denied cp, abd pain, n,v, diarrhea, told nursing staff she does not want to live , want to , her has . General: Denies: Chills Constitutional: Denies: Chills, Fever ENT: Denies: Head Aches Pulmonary: Denies: Dyspnea, Cough Cardiovascular: Denies: Chest Pain, Palpitations Gastrointestinal: Denies: Nausea, Vomiting, Abdominal Pain, Diarrhea, Constipation Psych: Reports: Depression Objective Physical Examination General Exam: Positive: Alert, No Acute Distress, Other (frail) Eye Exam: Positive: PERRLA, EOMI Chest Exam: Positive: Clear to auscultation, Normal air movement Heart Exam: Positive: Rate Normal, Normal S1, Normal S2 Abdomen Exam: Positive: BS Hypoactive, Soft, Tenderness, Hepatospenomegaly Extremity Exam: Negative: Clubbing, Cyanosis, Edema Assessment /Plan Problems (1) Severe hypothyroidism Problem Text: patient was having nausea vomiting and fairly lethargic at the time of her presentation. She was noted to have significantly elevated TSH. She did receive a one-time bolus of 200 g of IV levothyroxine and she is now 75 mcg of IV levothyroxine daily. tapered hydrocortisone from 100 mg to 50mg every 8 hours , c/w liothyroxine by mouth daily. recheck thyroid profile Q2 days, dc T3 once level normalize (2) Hyponatremia Problem Text: likely multifactorial hyponatremia with some hypovolemia, mineral glucocorticoid deficiency as well as significant hypothyroidism. IVF initally provider, and with mineral mineral glucocorticoids and thyroid replacement continue to monitor her sodium closely. na improved (3) Nausea & vomiting Status: Resolved Problem Text: Possibly related to constipation patient started on an aggressive bowel regimen also possibly related to severe hypothyroidism. At this time the patient appears to be tolerating a regular diet quite well she's had no episodes vomiting, (4) Hypertensive urgency Problem Text: related to the medical nonadherence. The patient was restarted on her verapamil 180 mg daily and norvasc added, Her echocardiogram reveals evidence of hypertensive heart disease. (5) Dementia Problem Text: supportive care, PFS, dispo planning 30/11 care (6) CAD (coronary artery disease) Problem Text: c/w current med (7) CKD (chronic kidney disease) Problem Text: f/u bun/ cr (8) Suicidal thoughts Problem Text: reported my nursing staff, Patient 's recently pass away , likely suffering from grief, consult psych, 1 on 1 (9) Adjustment disorder Problem Text: consult psych (10) Poor appetite Problem Text: / to grief calorie count appetite stimulant psych consult Plan/VTE VTE Prophylaxis Ordered?: Yes (heparin SQ) Disposition PFS for dispo plan, patient need 30/11 care, psych consult VS, I&O, 24H, Fishbone Vital Signs/I&O Vital Signs Date Time Temp Pulse Resp B/P (MAP) Pulse Ox O2 Delivery O2 Flow Rate FiO2 10/28/16 14:00 97.5 65 16 141/65 (90) 94 Room Air I&O- Last 24 Hours up to 6 AM 10/28/16 05:59 Intake Total 2180 ml Output Total 900 ml Balance 1280 ml Laboratory Data 24H LABS Laboratory Tests 2 10/28/16 05:30: Anion Gap 9, Glomerular Filtration Rate 54.7, Blood Urea Nitrogen 23H, Creatinine 1.03H, Sodium Level 133L, Potassium Level 3.4L, Chloride Level 100, Carbon Dioxide Level 24, Calcium Level 7.7L, Aspartate Amino Transf (AST/SGOT) 28, Alanine Aminotransferase (ALT/SGPT) 24, Alkaline Phosphatase 71, Total Bilirubin 0.3, Total Protein 6.6, Albumin 3.0L, Magnesium Level 2.4, Albumin/ Globulin Ratio 0.83L, Thyroid Stimulating Hormone (TSH) 33.100H, Free Thyroxine Index 1.8, Thyroxine (T4) 5.7, Free Triiodothyronine 1.0L, Triiodothyronine (T3 ) Uptake 32 CBC/BMP Laboratory Tests 10/28/16 05:30 Red Blood Count 3.78 L, Mean Corpuscular Volume 97.2 H, Mean Corpuscular Hemoglobin 33.0, Mean Corpuscular Hemoglobin Concent 34.0, Red Cell Distribution Width 13.0, Calcium Level 7.7 L, Aspartate Amino Transf (AST/SGOT) 28, Alanine Aminotransferase (ALT/SGPT) 24, Alkaline Phosphatase 71, Total Bilirubin 0.3, Total Protein 6.6, Albumin 3.0 L GOPI PEREZ MD Oct 28, 2016 18:14
[2016-10-28] MEDS: ATORVASTATIN 20 MG TAB PO SCH (21:20)
[2016-10-28 22:00] VITALS: BP 152/78
[2016-10-29] MEDS: HYDROCORTISONE 100 MG/2 ML VIAL (J1720) IV SCH ×3 (00:30→17:26)
[2016-10-29 05:39] LABS: MEAN CORPUSCULAR HEMOGLOBIN 32.9 pg (27.0-33.0); MEAN CORPUSCULAR VOLUME 96.9 fl (80.0-96.0); RED CELL DISTRIBUTION WIDTH 13.2 % (11.5-14.5); WHITE BLOOD COUNT 7.6 K/mm3 (4.0-10.0)
[2016-10-29 05:52] LABS: ALBUMIN 2.9 GM/DL (3.2-5.2); ALBUMIN/GLOBULIN RATIO 0.85 (1.00-1.93); BILIRUBIN,TOTAL 0.3 MG/DL (0.2-1.0); CALCIUM LEVEL 7.9 MG/DL (8.8-10.2); CREATININE FOR GFR 0.99 MG/DL (0.55-1.02); GLOMERULAR FILTRATION RATE 57.3 (>32); MAGNESIUM LEVEL 2.2 MG/DL (1.8-2.4); POTASSIUM SERUM 3.2 MEQ/L (3.5-5.1); TOTAL PROTEIN 6.3 GM/DL (6.4-8.2)
[2016-10-29 06:00] VITALS: BP 158/88
[2016-10-29] MEDS: LIOTHYRONINE 25 MCG TAB PO SCH (06:22)
[2016-10-29] MEDS ORDERED: POTASSIUM CHLORIDE 10 MEQ SR TABLET PO ONE (07:30)
[2016-10-29] MEDS: DONEPEZIL 5 MG TAB PO SCH (08:44)
[2016-10-29] MEDS: VERAPAMIL 180 MG SR TAB PO SCH (08:45)
[2016-10-29] MEDS: DRONABINOL 2.5 MG CAP (MARINOL) PO SCH ×3 (08:46→17:26)
[2016-10-29] MEDS: SENOKOT S TAB PO SCH ×2 (08:46→22:18)
[2016-10-29] MEDS: ASPIRIN 81 MG ENTERIC TAB PO SCH (08:46)
[2016-10-29] MEDS: PANTOPRAZOLE 40MG TAB (PROTONIX) PO SCH (08:46)
[2016-10-29] MEDS: HEPARIN SOD (PORCINE) 5000 UNITS/ML VIAL SC SCH ×2 (08:48→22:18)
[2016-10-29] MEDS: LEVOTHYROXINE 100 MCG (0.1MG) VIAL IV SCH (08:49)
[2016-10-29] MEDS: amLODIPine 5 MG TAB PO SCH (08:50)
[2016-10-29] MEDS ORDERED: POTASSIUM CHLORIDE 10 MEQ SR TABLET PO SCH (09:00)
[2016-10-29 14:00] VITALS: BP 120/61
[2016-10-29] MEDS: BISACODYL 5 MG TAB PO PRN (17:32)
--- NOTE | 2016-10-29 18:06 | IPNPDOC ---
Subjective Date Seen The patient was seen on 10/29/16. Subjective Chief Complaint/HPI The patient is a 81-year-old female admitted with a reason for visit of Hypertensive Emergency/Vomiting. Events since last encounter no acute events overnight, smiles, reported grief and sadness over the expiration of her , no suicidal thoughts or plan, reported poor appetite. , denied cp/n/v/abd pain/sob. Constitutional: Denies: Chills, Fever ENT: Denies: Head Aches, Ear Pain Pulmonary: Denies: Dyspnea, Cough Cardiovascular: Denies: Chest Pain, Palpitations Gastrointestinal: Denies: Nausea, Abdominal Pain, Diarrhea, Constipation Objective Physical Examination General Exam: Positive: Alert, No Acute Distress, Other (frail) Eye Exam: Positive: PERRLA, EOMI Chest Exam: Positive: Clear to auscultation, Normal air movement Heart Exam: Positive: Rate Normal, Normal S1, Normal S2 Abdomen Exam: Positive: BS Hypoactive, Soft, Tenderness, Hepatospenomegaly Extremity Exam: Negative: Clubbing, Cyanosis, Edema Assessment /Plan Assessment This is an 81-year-old female patient with underlying medical history of dementia, Alzheimer's dementia advanced, not taking much medication, poor oral, hypothyroidism, hypertension, questionable coronary arterial disease, a/w severe hypothyroid precoma, hyponatremia, n/v, constipation Problems (1) Severe hypothyroidism Problem Text: patient was having nausea vomiting and fairly lethargic at the time of her presentation. improved currently, She was noted to have significantly elevated TSH. She did receive a one-time bolus of 200 g of IV levothyroxine and she is now 75 mcg of IV levothyroxine daily. tapered hydrocortisone from 100 mg to 50mg every 8 hours , c/w liothyroxine by mouth daily. recheck thyroid profile Q2 days, dc T3 once level normalize (2) Hyponatremia Status: Resolved Problem Text: likely multifactorial hyponatremia with some hypovolemia, mineral glucocorticoid deficiency as well as significant hypothyroidism. IVF initally provided, and with mineral mineral glucocorticoids and thyroid replacement continue to monitor her sodium closely. na improved (3) Nausea & vomiting Status: Resolved Problem Text: Possibly related to constipation patient started on an aggressive bowel regimen also possibly related to severe hypothyroidism. At this time the patient appears to be tolerating a regular diet quite well she's had no episodes vomiting, (4) Hypertensive urgency Problem Text: related to the medical nonadherence. The patient was restarted on her verapamil 180 mg daily and norvasc added, Her echocardiogram reveals evidence of hypertensive heart disease. (5) Dementia Problem Text: supportive care, PFS, dispo planning 30/11 care (6) CAD (coronary artery disease) Problem Text: c/w current med (7) CKD (chronic kidney disease) Problem Text: f/u bun/ cr (8) Suicidal thoughts Problem Text: reported my nursing staff, Patient 's recently pass away , likely suffering from grief extensive discussion with patient, patient denied suicidal thoughts, reported not want to eat since her , no plan of ending her life. Reported children supportive, DW Psych Dr Bain normal grieving process as per Dr Bain, Rec, family bring in things or food that bring her yobany in life. (9) Poor appetite Problem Text: 06/11 to grief calorie count appetite stimulant Plan/VTE VTE Prophylaxis Ordered?: Yes (heparin SQ) Disposition PT, clinical improvement, PFS consulted VS, I&O, 24H, [facility] Vital Signs/I&O Vital Signs Date Time Temp Pulse Resp B/P (MAP) Pulse Ox O2 Delivery O2 Flow Rate FiO2 10/29/16 14:00 98.5 68 18 120/61 (80) 94 Room Air I&O- Last 24 Hours up to 6 AM 10/29/16 06:00 Intake Total 720 ml Balance 720 ml Laboratory Data 24H LABS Laboratory Tests 2 10/29/16 04:50: Anion Gap 9, Glomerular Filtration Rate 57.3, Blood Urea Nitrogen 22H, Creatinine 0.99, Sodium Level 134L, Potassium Level 3.2L, Chloride Level 100, Carbon Dioxide Level 25, Calcium Level 7.9L, Aspartate Amino Transf (AST/SGOT) 21, Alanine Aminotransferase (ALT/SGPT) 22, Alkaline Phosphatase 67, Total Bilirubin 0.3, Total Protein 6.3L, Albumin 2.9L, Magnesium Level 2.2, Albumin/ Globulin Ratio 0.85L CBC/BMP Laboratory Tests 10/29/16 04:50 Red Blood Count 3.59 L, Mean Corpuscular Volume 96.9 H, Mean Corpuscular Hemoglobin 32.9, Mean Corpuscular Hemoglobin Concent 34.0, Red Cell Distribution Width 13.2, Calcium Level 7.9 L, Aspartate Amino Transf (AST/SGOT) 21, Alanine Aminotransferase (ALT/SGPT) 22, Alkaline Phosphatase 67, Total Bilirubin 0.3, Total Protein 6.3 L, Albumin 2.9 L GOPI PEREZ MD Oct 29, 2016 18:06
[2016-10-29 22:00] VITALS: BP 143/74
[2016-10-29] MEDS: ATORVASTATIN 20 MG TAB PO SCH (22:18)
[2016-10-30] MEDS: HYDROCORTISONE 100 MG/2 ML VIAL (J1720) IV SCH ×3 (01:03→23:28)
[2016-10-30 06:00] VITALS: BP 168/81
[2016-10-30] MEDS: LIOTHYRONINE 25 MCG TAB PO SCH (06:04)
[2016-10-30 06:05] LABS: MEAN CORPUSCULAR HEMOGLOBIN 33.5 pg (27.0-33.0); MEAN CORPUSCULAR HGB CONC 34.8 g/dl (32.0-36.5); MEAN CORPUSCULAR VOLUME 96.1 fl (80.0-96.0); RED CELL DISTRIBUTION WIDTH 13.3 % (11.5-14.5); WHITE BLOOD COUNT 7.1 K/mm3 (4.0-10.0)
[2016-10-30 06:17] LABS: ALBUMIN/GLOBULIN RATIO 0.88 (1.00-1.93); BILIRUBIN,TOTAL 0.4 MG/DL (0.2-1.0); CALCIUM LEVEL 8.3 MG/DL (8.8-10.2); GLOMERULAR FILTRATION RATE 56.6 (>32); MAGNESIUM LEVEL 2.2 MG/DL (1.8-2.4); POTASSIUM SERUM 3.1 MEQ/L (3.5-5.1); TOTAL PROTEIN 6.4 GM/DL (6.4-8.2)
[2016-10-30 06:27] LABS: THYROXINE (T4) 6.8 UG/DL (4.5-12.0)
[2016-10-30] MEDS: PANTOPRAZOLE 40MG TAB (PROTONIX) PO SCH (08:08)
[2016-10-30] MEDS: POTASSIUM CHLORIDE 10 MEQ SR TABLET PO SCH ×2 (08:08→19:58)
[2016-10-30] MEDS: ASPIRIN 81 MG ENTERIC TAB PO SCH (08:09)
[2016-10-30] MEDS: SENOKOT S TAB PO SCH ×2 (08:13→19:58)
[2016-10-30] MEDS: DONEPEZIL 5 MG TAB PO SCH (08:13)
[2016-10-30] MEDS: HEPARIN SOD (PORCINE) 5000 UNITS/ML VIAL SC SCH ×2 (08:13→19:58)
[2016-10-30] MEDS: DRONABINOL 2.5 MG CAP (MARINOL) PO SCH ×3 (08:13→16:53)
[2016-10-30] MEDS: amLODIPine 5 MG TAB PO SCH (08:14)
[2016-10-30] MEDS: LEVOTHYROXINE 100 MCG (0.1MG) VIAL IV SCH (09:04)
[2016-10-30] MEDS: VERAPAMIL 180 MG SR TAB PO SCH (09:04)
[2016-10-30 11:08] VITALS: BP 158/78
[2016-10-30] MEDS ORDERED: HYDROCORTISONE 100 MG/2 ML VIAL (J1720) IV SCH (12:00)
[2016-10-30 14:00] VITALS: BP 125/58
--- NOTE | 2016-10-30 16:17 | IPNPDOC ---
Subjective Date Seen The patient was seen on 10/30/16. Subjective Chief Complaint/HPI The patient is a 81-year-old female admitted with a reason for visit of Hypertensive Emergency/Vomiting. Events since last encounter no acute events overnight. Denied CP, abd pain, sob, n/v/abd pain. poor appetite but eating Constitutional: Denies: Chills, Fever ENT: Denies: Head Aches Pulmonary: Denies: Dyspnea, Cough Cardiovascular: Denies: Chest Pain, Palpitations Gastrointestinal: Denies: Nausea, Vomiting, Abdominal Pain, Diarrhea Objective Physical Examination General Exam: Positive: Alert, No Acute Distress, Other (frail) Eye Exam: Positive: PERRLA, EOMI Chest Exam: Positive: Clear to auscultation, Normal air movement Heart Exam: Positive: Rate Normal, Normal S1, Normal S2 Abdomen Exam: Positive: BS Hypoactive, Soft, Tenderness, Hepatospenomegaly Extremity Exam: Negative: Clubbing, Cyanosis, Edema Assessment /Plan Assessment This is an 81-year-old female patient with underlying medical history of dementia, Alzheimer's dementia advanced, not taking much medication, poor oral, hypothyroidism, hypertension, questionable coronary arterial disease, a/w severe hypothyroid precoma, hyponatremia, n/v, constipation Problems (1) Severe hypothyroidism Problem Text: patient was having nausea vomiting and fairly lethargic at the time of her presentation. improved currently, She was noted to have significantly elevated TSH. She did receive a one-time bolus of 200 g of IV levothyroxine and she is now 75 mcg of IV levothyroxine daily. tapered hydrocortisone to 25 mg bid, DC liothyroxine by mouth daily, 7 days course given. recheck thyroid profile Q2 days (2) Hyponatremia Status: Resolved Problem Text: likely multifactorial hyponatremia with some hypovolemia, mineral glucocorticoid deficiency as well as significant hypothyroidism. IVF initally provided, and with mineral mineral glucocorticoids and thyroid replacement continue to monitor her sodium closely. na improved (3) Nausea & vomiting Status: Resolved Problem Text: Possibly related to constipation patient started on an aggressive bowel regimen also possibly related to severe hypothyroidism. At this time the patient appears to be tolerating a regular diet quite well she's had no episodes vomiting, (4) Hypertensive urgency Problem Text: related to the medical nonadherence. The patient was restarted on her verapamil 180 mg daily and norvasc added, Her echocardiogram reveals evidence of hypertensive heart disease. (5) Dementia Problem Text: supportive care, PFS, dispo planning 30/11 care (6) CAD (coronary artery disease) Problem Text: c/w current med (7) CKD (chronic kidney disease) Problem Text: f/u bun/ cr (8) Suicidal thoughts Problem Text: reported my nursing staff, Patient 's recently pass away , likely suffering from grief extensive discussion with patient, patient denied suicidal thoughts, reported not want to eat since her , no plan of ending her life. Reported children supportive, DW Psych Dr Bain normal grieving process as per Dr Bain, Rec, family bring in things or food that bring her yobany in life. (9) Poor appetite Problem Text: 2/ to grief calorie count appetite stimulant Plan/VTE VTE Prophylaxis Ordered?: Yes (heparin SQ) Disposition pending clinical improvement, family prefer home with 30/11 care. PT VS, I&O, 24H, Fishbone Vital Signs/I&O Vital Signs Date Time Temp Pulse Resp B/P (MAP) Pulse Ox O2 Delivery O2 Flow Rate FiO2 10/30/16 14:00 98.2 61 18 125/58 (80) 94 Room Air I&O- Last 24 Hours up to 6 AM 10/30/16 06:00 Intake Total 360 ml Output Total 350 ml Balance 10 ml Laboratory Data 24H LABS Laboratory Tests 2 10/30/16 05:36: Anion Gap 9, Glomerular Filtration Rate 56.6, Blood Urea Nitrogen 22H, Creatinine 1.00, Sodium Level 134L, Potassium Level 3.1L, Chloride Level 98, Carbon Dioxide Level 27, Calcium Level 8.3L, Aspartate Amino Transf (AST/SGOT) 19, Alanine Aminotransferase (ALT/SGPT) 27, Alkaline Phosphatase 72, Total Bilirubin 0.4, Total Protein 6.4, Albumin 3.0L, Magnesium Level 2.2, Albumin/ Globulin Ratio 0.88L, Thyroid Stimulating Hormone (TSH) 21.700H, Free Thyroxine Index 2.2, Thyroxine (T4) 6.8, Free Triiodothyronine 1.0L, Triiodothyronine (T3 ) Uptake 32 CBC/BMP Laboratory Tests 10/30/16 05:36 Red Blood Count 3.72 L, Mean Corpuscular Volume 96.1 H, Mean Corpuscular Hemoglobin 33.5 H, Mean Corpuscular Hemoglobin Concent 34.8, Red Cell Distribution Width 13.3, Calcium Level 8.3 L, Aspartate Amino Transf (AST/SGOT) 19, Alanine Aminotransferase (ALT/SGPT) 27, Alkaline Phosphatase 72, Total Bilirubin 0.4, Total Protein 6.4, Albumin 3.0 L GOPI PEREZ MD Oct 30, 2016 16:17
[2016-10-30] MEDS: ATORVASTATIN 20 MG TAB PO SCH (19:58)
[2016-10-30 22:00] VITALS: BP 142/68
[2016-10-31 06:00] VITALS: BP 169/95
[2016-10-31 06:09] LABS: MEAN CORPUSCULAR HEMOGLOBIN 33.9 pg (27.0-33.0); MEAN CORPUSCULAR HGB CONC 35.3 g/dl (32.0-36.5); MEAN CORPUSCULAR VOLUME 95.8 fl (80.0-96.0); RED CELL DISTRIBUTION WIDTH 13.3 % (11.5-14.5); WHITE BLOOD COUNT 6.6 K/mm3 (4.0-10.0)
[2016-10-31 06:24] LABS: CALCIUM LEVEL 8.5 MG/DL (8.8-10.2); CREATININE FOR GFR 0.97 MG/DL (0.55-1.02); GLOMERULAR FILTRATION RATE 58.7 (>32); MAGNESIUM LEVEL 1.9 MG/DL (1.8-2.4); POTASSIUM SERUM 3.2 MEQ/L (3.5-5.1)
[2016-10-31 06:55] VITALS: BP 156/82
[2016-10-31] MEDS: amLODIPine 5 MG TAB PO SCH (08:31)
[2016-10-31] MEDS: DRONABINOL 2.5 MG CAP (MARINOL) PO SCH ×3 (08:31→17:33)
[2016-10-31] MEDS: PANTOPRAZOLE 40MG TAB (PROTONIX) PO SCH (08:31)
[2016-10-31] MEDS: ASPIRIN 81 MG ENTERIC TAB PO SCH (08:31)
[2016-10-31] MEDS: SENOKOT S TAB PO SCH ×2 (08:31→20:11)
[2016-10-31] MEDS: VERAPAMIL 180 MG SR TAB PO SCH (08:31)
[2016-10-31] MEDS: DONEPEZIL 5 MG TAB PO SCH (08:32)
[2016-10-31] MEDS: HEPARIN SOD (PORCINE) 5000 UNITS/ML VIAL SC SCH ×2 (08:32→20:11)
[2016-10-31] MEDS: POTASSIUM CHLORIDE 10 MEQ SR TABLET PO SCH ×2 (08:32→20:12)
[2016-10-31] MEDS: LEVOTHYROXINE 100 MCG (0.1MG) VIAL IV SCH (08:32)
[2016-10-31] MEDS: HYDROCORTISONE 10 MG TAB PO SCH ×2 (10:45→20:11)
[2016-10-31 14:00] VITALS: BP 130/62
--- NOTE | 2016-10-31 16:49 | IPNPDOC ---
Subjective Date Seen The patient was seen on 10/31/16. Subjective Chief Complaint/HPI The patient is a 81-year-old female admitted with a reason for visit of Hypertensive Emergency/Vomiting. Events since last encounter No acute events overnight. poor oral intake. Denied chest pain, abd pain, n/v/ sob Constitutional: Denies: Chills, Fever Eyes: Denies: Pain, Vision change Skin: Denies: Rash, Lesions Pulmonary: Denies: Dyspnea, Cough Cardiovascular: Denies: Chest Pain, Palpitations Gastrointestinal: Denies: Nausea, Vomiting, Abdominal Pain, Diarrhea, Constipation Objective Physical Examination General Exam: Positive: Alert, No Acute Distress, Other (frail) Eye Exam: Positive: PERRLA, EOMI Chest Exam: Positive: Clear to auscultation, Normal air movement Heart Exam: Positive: Rate Normal, Normal S1, Normal S2 Abdomen Exam: Positive: BS Hypoactive, Soft, Tenderness, Hepatospenomegaly Extremity Exam: Negative: Clubbing, Cyanosis, Edema Assessment /Plan Assessment This is an 81-year-old female patient with underlying medical history of dementia, Alzheimer's dementia advanced, not taking much medication, poor oral, hypothyroidism, hypertension, questionable coronary arterial disease, a/w severe hypothyroid precoma, hyponatremia, n/v, constipation Problems (1) Severe hypothyroidism Problem Text: patient was having nausea vomiting and fairly lethargic at the time of her presentation. improved currently, She was noted to have significantly elevated TSH. She did receive a one-time bolus of 200 g of IV levothyroxine and she is now 75 mcg of IV levothyroxine daily for 8 days, restarted synthroid 100mcg daily PO. tapered hydrocortisone , DC liothyroxine by mouth daily, 7 days course given. recheck thyroid profile Q2 days (2) Hyponatremia Status: Resolved Problem Text: likely multifactorial hyponatremia with some hypovolemia, mineral glucocorticoid deficiency as well as significant hypothyroidism. IVF initally provided, and with mineral mineral glucocorticoids and thyroid replacement continue to monitor her sodium closely. na improved (3) Nausea & vomiting Status: Resolved Problem Text: Possibly related to constipation patient started on an aggressive bowel regimen also possibly related to severe hypothyroidism. At this time the patient appears to be tolerating a regular diet quite well she's had no episodes vomiting, (4) Hypertensive urgency Problem Text: related to the medical nonadherence. The patient was restarted on her verapamil 180 mg daily and norvasc added, Her echocardiogram reveals evidence of hypertensive heart disease. (5) Dementia Problem Text: supportive care, PFS, dispo planning 30/11 care (6) CAD (coronary artery disease) Problem Text: c/w current med (7) CKD (chronic kidney disease) Problem Text: f/u bun/ cr (8) Suicidal thoughts Problem Text: reported my nursing staff, Patient 's recently pass away , likely suffering from grief extensive discussion with patient, patient denied suicidal thoughts, reported not want to eat since her , no plan of ending her life. Reported children supportive, DW Psych Dr Bain normal grieving process as per Dr Bain, Rec, family bring in things or food that bring her yobany in life. (9) Poor appetite Problem Text: 06/11 to grief calorie count appetite stimulant (10) Hypokalemia Problem Text: supplement, f/u bmp and mag taper steroid Urine electrolytes Plan/VTE VTE Prophylaxis Ordered?: Yes (heparin SQ) Disposition Pending PT and home services VS, I&O, 24H, Fishbone Vital Signs/I&O Vital Signs Date Time Temp Pulse Resp B/P (MAP) Pulse Ox O2 Delivery O2 Flow Rate FiO2 10/31/16 16:03 98.2 10/31/16 14:00 60 16 130/62 (84) 94 Room Air I&O- Last 24 Hours up to 6 AM 10/31/16 06:00 Intake Total 660 ml Output Total 550 ml Balance 110 ml Laboratory Data 24H LABS Laboratory Tests 2 10/31/16 05:34: Anion Gap 8, Glomerular Filtration Rate 58.7, Blood Urea Nitrogen 21H, Creatinine 0.97, Sodium Level 133L, Potassium Level 3.2L, Chloride Level 95L, Carbon Dioxide Level 30, Calcium Level 8.5L, Magnesium Level 1.9 CBC/BMP Laboratory Tests 10/31/16 05:34 Red Blood Count 3.84 L, Mean Corpuscular Volume 95.8, Mean Corpuscular Hemoglobin 33.9 H, Mean Corpuscular Hemoglobin Concent 35.3, Red Cell Distribution Width 13.3, Calcium Level 8.5 L GOPI PEREZ MD Oct 31, 2016 16:49
[2016-10-31] MEDS: ATORVASTATIN 20 MG TAB PO SCH (20:11)
[2016-10-31 22:00] VITALS: BP 140/74
[2016-11-01] MEDS: LEVOTHYROXINE 100MCG TABLET (0.1MG) PO SCH (05:32)
[2016-11-01 06:00] VITALS: BP 155/82
[2016-11-01 06:14] LABS: MEAN CORPUSCULAR HEMOGLOBIN 33.4 pg (27.0-33.0); MEAN CORPUSCULAR VOLUME 98.3 fl (80.0-96.0); WHITE BLOOD COUNT 8.7 K/mm3 (4.0-10.0)
[2016-11-01 06:41] LABS: ANION GAP 8 MEQ/L (8-16); BLOOD UREA NITROGEN 22 MG/DL (7-18); CALCIUM LEVEL 8.3 MG/DL (8.8-10.2); CARBON DIOXIDE LEVEL 31 MEQ/L (21-32); CHLORIDE LEVEL 94 MEQ/L (98-107); CREATININE FOR GFR 0.95 MG/DL (0.55-1.02); GLOMERULAR FILTRATION RATE > 60.0 (>32); GLUCOSE, FASTING 85 MG/DL (83-110); POTASSIUM SERUM 3.5 MEQ/L (3.5-5.1); SODIUM LEVEL 133 MEQ/L (136-145); T UPTAKE 33 % (30-39); THYROXINE (T4) 6.6 UG/DL (4.5-12.0)
[2016-11-01] MEDS: HEPARIN SOD (PORCINE) 5000 UNITS/ML VIAL SC SCH ×2 (09:01→22:19)
[2016-11-01] MEDS: POTASSIUM CHLORIDE 10 MEQ SR TABLET PO SCH ×2 (09:01→22:19)
[2016-11-01] MEDS: DRONABINOL 2.5 MG CAP (MARINOL) PO SCH ×3 (09:02→17:04)
[2016-11-01] MEDS: VERAPAMIL 180 MG SR TAB PO SCH (09:02)
[2016-11-01] MEDS: ASPIRIN 81 MG ENTERIC TAB PO SCH (09:02)
[2016-11-01] MEDS: amLODIPine 5 MG TAB PO SCH (09:02)
[2016-11-01] MEDS: HYDROCORTISONE 10 MG TAB PO SCH ×2 (09:02→22:19)
[2016-11-01] MEDS: PANTOPRAZOLE 40MG TAB (PROTONIX) PO SCH (09:02)
[2016-11-01] MEDS: LIOTHYRONINE 25 MCG TAB PO SCH (09:03)
[2016-11-01] MEDS: SENOKOT S TAB PO SCH ×2 (09:03→22:19)
[2016-11-01] MEDS: DONEPEZIL 5 MG TAB PO SCH (09:03)
--- NOTE | 2016-11-01 13:25 | IPNPDOC ---
Subjective Date Seen The patient was seen on 11/01/16. Subjective Chief Complaint/HPI The patient is a 81-year-old female admitted with a reason for visit of Hypertensive Emergency/Vomiting. Events since last encounter no acute events overnight, Denied cp, abd pain, nausea vomiting. Constitutional: Reports: Weakness, Denies: Chills, Fever ENT: Denies: Head Aches, Ear Pain, Dysphagia Pulmonary: Denies: Dyspnea, Cough Cardiovascular: Denies: Chest Pain, Palpitations, Orthopnea Gastrointestinal: Denies: Nausea, Vomiting, Abdominal Pain, Diarrhea, Constipation Objective Physical Examination General Exam: Positive: Alert, No Acute Distress, Other (frail) Eye Exam: Positive: PERRLA, EOMI Chest Exam: Positive: Clear to auscultation, Normal air movement Heart Exam: Positive: Rate Normal, Normal S1, Normal S2 Abdomen Exam: Positive: BS Hypoactive, Soft, Tenderness, Hepatospenomegaly Extremity Exam: Negative: Clubbing, Cyanosis, Edema Assessment /Plan Assessment This is an 81-year-old female patient with underlying medical history of dementia, Alzheimer's dementia advanced, not taking much medication, poor oral, hypothyroidism, hypertension, questionable coronary arterial disease, a/w severe hypothyroid precoma, hyponatremia, n/v, constipation Problems (1) Severe hypothyroidism Problem Text: patient was having nausea vomiting and fairly lethargic at the time of her presentation. improved currently, She was noted to have significantly elevated TSH. She did receive a one-time bolus of 200 g of IV levothyroxine and she was 75 mcg of IV levothyroxine daily for 8 days, restarted synthroid 100mcg daily PO. tapered hydrocortisone , restarted liothyroxine by mouth daily, 8 days course given, given T 3 lower. recheck thyroid profile Q2 days (2) Hyponatremia Status: Resolved Problem Text: likely multifactorial hyponatremia with some hypovolemia, mineral glucocorticoid deficiency as well as significant hypothyroidism. IVF initally provided, and with mineral mineral glucocorticoids and thyroid replacement continue to monitor her sodium closely. na improved (3) Nausea & vomiting Status: Resolved Problem Text: Possibly related to constipation patient started on an aggressive bowel regimen also possibly related to severe hypothyroidism. At this time the patient appears to be tolerating a regular diet quite well she's had no episodes vomiting, (4) Hypertensive urgency Problem Text: related to the medical nonadherence. The patient was restarted on her verapamil 180 mg daily and norvasc added, Her echocardiogram reveals evidence of hypertensive heart disease. (5) Dementia Problem Text: supportive care, PFS, dispo planning 30/11 care (6) CAD (coronary artery disease) Problem Text: c/w current med (7) CKD (chronic kidney disease) Problem Text: f/u bun/ cr (8) Suicidal thoughts Problem Text: reported my nursing staff, Patient 's recently pass away , likely suffering from grief extensive discussion with patient, patient denied suicidal thoughts, reported not want to eat since her , no plan of ending her life. Reported children supportive, DW Psych Dr Bain normal grieving process as per Dr Bain, Rec, family bring in things or food that bring her yobany in life. (9) Poor appetite Problem Text: 06/11 to grief calorie count appetite stimulant (10) Hypokalemia Problem Text: supplement, f/u bmp and mag taper steroid Urine electrolytes Plan/VTE VTE Prophylaxis Ordered?: Yes (heparin SQ) Disposition Pending PT and PFS. VS, I&O, 24H, Fishbone Vital Signs/I&O Vital Signs Date Time Temp Pulse Resp B/P (MAP) Pulse Ox O2 Delivery O2 Flow Rate FiO2 11/01/16 09:02 68 155/82 11/01/16 06:00 97.2 17 94 Room Air I&O- Last 24 Hours up to 6 AM 11/01/16 06:00 Intake Total 0 ml Output Total 250 ml Balance -250 ml Laboratory Data 24H LABS Laboratory Tests 2 11/01/16 05:30: Anion Gap 8, Glomerular Filtration Rate > 60.0, Blood Urea Nitrogen 22H, Creatinine 0.95, Sodium Level 133L, Potassium Level 3.5, Chloride Level 94L, Carbon Dioxide Level 31, Calcium Level 8.3L, Magnesium Level 2.0, Thyroid Stimulating Hormone (TSH) 61.800H, Free Thyroxine Index 2.2, Thyroxine (T4) 6.6 , Free Triiodothyronine 0.8L, Triiodothyronine (T3) Uptake 33 CBC/BMP Laboratory Tests 11/01/16 05:30 Red Blood Count 3.85 L, Mean Corpuscular Volume 98.3 H, Mean Corpuscular Hemoglobin 33.4 H, Mean Corpuscular Hemoglobin Concent 34.0, Red Cell Distribution Width 13.0, Calcium Level 8.3 L GOPI PEREZ MD Nov 01, 2016 13:25
[2016-11-01 14:00] VITALS: BP 112/56
[2016-11-01 22:00] VITALS: BP 108/57
[2016-11-01] MEDS: ATORVASTATIN 20 MG TAB PO SCH (22:19)
[2016-11-02] MEDS: LEVOTHYROXINE 100MCG TABLET (0.1MG) PO SCH (05:34)
[2016-11-02 05:56] LABS: MEAN CORPUSCULAR HEMOGLOBIN 33.6 pg (27.0-33.0); MEAN CORPUSCULAR VOLUME 99.1 fl (80.0-96.0); RED CELL DISTRIBUTION WIDTH 13.6 % (11.5-14.5); WHITE BLOOD COUNT 8.4 K/mm3 (4.0-10.0)
[2016-11-02 06:00] VITALS: BP 163/75
[2016-11-02 06:24] LABS: CALCIUM LEVEL 8.3 MG/DL (8.8-10.2); CREATININE FOR GFR 0.97 MG/DL (0.55-1.02); GLOMERULAR FILTRATION RATE 58.7 (>32); POTASSIUM SERUM 4.5 MEQ/L (3.5-5.1); THYROXINE (T4) 6.9 UG/DL (4.5-12.0)
[2016-11-02] MEDS: HEPARIN SOD (PORCINE) 5000 UNITS/ML VIAL SC SCH ×2 (09:46→20:51)
[2016-11-02] MEDS: amLODIPine 5 MG TAB PO SCH (09:46)
[2016-11-02] MEDS: ASPIRIN 81 MG ENTERIC TAB PO SCH (09:47)
[2016-11-02] MEDS: POTASSIUM CHLORIDE 10 MEQ SR TABLET PO SCH ×2 (09:47→20:50)
[2016-11-02] MEDS: DONEPEZIL 5 MG TAB PO SCH (09:47)
[2016-11-02] MEDS: PANTOPRAZOLE 40MG TAB (PROTONIX) PO SCH (09:47)
[2016-11-02] MEDS: DRONABINOL 2.5 MG CAP (MARINOL) PO SCH ×3 (09:47→18:19)
[2016-11-02] MEDS: HYDROCORTISONE 10 MG TAB PO SCH (09:48)
[2016-11-02] MEDS: SENOKOT S TAB PO SCH ×2 (09:48→20:51)
[2016-11-02] MEDS: VERAPAMIL 180 MG SR TAB PO SCH (09:48)
[2016-11-02] MEDS: LIOTHYRONINE 25 MCG TAB PO SCH (09:48)
[2016-11-02 14:00] VITALS: BP 140/63
--- NOTE | 2016-11-02 18:49 | IPNPDOC ---
Subjective Date Seen The patient was seen on 11/02/16. Subjective Chief Complaint/HPI The patient is a 81-year-old female admitted with a reason for visit of Hypertensive Emergency/Vomiting. Events since last encounter No acute events overnight. Denied cp/abd pain/n/v/diarrhea/f/c. tolerating oral Constitutional: Denies: Chills, Fever Eyes: Denies: Vision change ENT: Denies: Head Aches Pulmonary: Denies: Dyspnea, Cough Cardiovascular: Denies: Chest Pain, Palpitations, Orthopnea Gastrointestinal: Denies: Nausea, Vomiting, Abdominal Pain Objective Physical Examination General Exam: Positive: Alert, No Acute Distress, Other (frail) Eye Exam: Positive: PERRLA, EOMI Chest Exam: Positive: Clear to auscultation, Normal air movement Heart Exam: Positive: Rate Normal, Normal S1, Normal S2 Abdomen Exam: Positive: BS Hypoactive, Soft, Tenderness, Hepatospenomegaly Extremity Exam: Negative: Clubbing, Cyanosis, Edema Assessment /Plan Assessment This is an 81-year-old female patient with underlying medical history of dementia, Alzheimer's dementia advanced, not taking much medication, poor oral, hypothyroidism, hypertension, questionable coronary arterial disease, a/w severe hypothyroid precoma, hyponatremia, n/v, constipation Problems (1) Severe hypothyroidism Problem Text: patient was having nausea vomiting and fairly lethargic at the time of her presentation. improved currently, She was noted to have significantly elevated TSH. She did receive a one-time bolus of 200 g of IV levothyroxine and she was 75 mcg of IV levothyroxine daily for 8 days, restarted synthroid 100mcg daily PO. tapered hydrocortisone , restarted liothyroxine by mouth daily, given T 3 lower. recheck thyroid profile Q2 days, dc T3 once T3 normal (2) Hyponatremia Status: Resolved Problem Text: likely multifactorial hyponatremia with some hypovolemia, mineral glucocorticoid deficiency as well as significant hypothyroidism. IVF initally provided, and with mineral mineral glucocorticoids and thyroid replacement continue to monitor her sodium closely. na improved (3) Nausea & vomiting Status: Resolved Problem Text: Possibly related to constipation patient started on an aggressive bowel regimen also possibly related to severe hypothyroidism. At this time the patient appears to be tolerating a regular diet quite well she's had no episodes vomiting, (4) Hypertensive urgency Problem Text: related to the medical nonadherence. The patient was restarted on her verapamil 180 mg daily and norvasc added, Her echocardiogram reveals evidence of hypertensive heart disease. (5) Dementia Problem Text: supportive care, PFS, dispo planning 30/11 care (6) CAD (coronary artery disease) Problem Text: c/w current med (7) CKD (chronic kidney disease) Problem Text: f/u bun/ cr (8) Suicidal thoughts Problem Text: reported my nursing staff, Patient 's recently pass away , likely suffering from grief extensive discussion with patient, patient denied suicidal thoughts, reported not want to eat since her , no plan of ending her life. Reported children supportive, DW Psych Dr Bain normal grieving process as per Dr Bain, Rec, family bring in things or food that bring her yobany in life. (9) Poor appetite Problem Text: / to grief calorie count appetite stimulant (10) Hypokalemia Problem Text: supplement, f/u bmp and mag taper steroid Urine electrolytes Plan/VTE VTE Prophylaxis Ordered?: Yes (heparin SQ) Disposition family wished to take the patient home, but need 2person 30/11 now. PFS consulted VS, I&O, 24H, Leif Vital Signs/I&O Vital Signs Date Time Temp Pulse Resp B/P (MAP) Pulse Ox O2 Delivery O2 Flow Rate FiO2 11/02/16 14:00 98.6 74 18 140/63 (88) 96 Room Air I&O- Last 24 Hours up to 6 AM 11/02/16 06:00 Intake Total 570 ml Output Total 250 ml Balance 320 ml Laboratory Data 24H LABS Laboratory Tests 2 11/02/16 05:14: Anion Gap 6L, Glomerular Filtration Rate 58.7, Blood Urea Nitrogen 23H, Creatinine 0.97, Sodium Level 132L, Potassium Level 4.5#, Chloride Level 96L, Carbon Dioxide Level 30, Calcium Level 8.3L, Magnesium Level 2.0, Thyroid Stimulating Hormone (TSH) 49.900H, Free Thyroxine Index 2.3, Thyroxine (T4) 6.9 , Free Triiodothyronine 1.3L, Triiodothyronine (T3) Uptake 34 CBC/BMP Laboratory Tests 11/02/16 05:14 Red Blood Count 3.57 L, Mean Corpuscular Volume 99.1 H, Mean Corpuscular Hemoglobin 33.6 H, Mean Corpuscular Hemoglobin Concent 34.0, Red Cell Distribution Width 13.6, Calcium Level 8.3 L GOPI PEREZ MD Nov 02, 2016 18:49
[2016-11-02] MEDS: ATORVASTATIN 20 MG TAB PO SCH (20:50)
[2016-11-02] MEDS: HYDROCORTISONE 5MG TABLET PO SCH (20:50)
[2016-11-02 22:00] VITALS: BP 111/58
[2016-11-03] MEDS: LEVOTHYROXINE 100MCG TABLET (0.1MG) PO SCH (05:54)
[2016-11-03 06:00] VITALS: BP 160/73
[2016-11-03 06:35] LABS: MEAN CORPUSCULAR HGB CONC 34.8 g/dl (32.0-36.5); MEAN CORPUSCULAR VOLUME 97.8 fl (80.0-96.0); RED CELL DISTRIBUTION WIDTH 13.3 % (11.5-14.5); WHITE BLOOD COUNT 7.3 K/mm3 (4.0-10.0)
[2016-11-03 07:00] LABS: ANION GAP 7 MEQ/L (8-16); BLOOD UREA NITROGEN 18 MG/DL (7-18); CALCIUM LEVEL 8.9 MG/DL (8.8-10.2); CARBON DIOXIDE LEVEL 30 MEQ/L (21-32); CHLORIDE LEVEL 91 MEQ/L (98-107); CREATININE FOR GFR 0.86 MG/DL (0.55-1.02); GLOMERULAR FILTRATION RATE > 60.0 (>32); GLUCOSE, FASTING 83 MG/DL (83-110); MAGNESIUM LEVEL 1.8 MG/DL (1.8-2.4); POTASSIUM SERUM 4.4 MEQ/L (3.5-5.1); SODIUM LEVEL 128 MEQ/L (136-145); T UPTAKE 35 % (30-39); THYROXINE (T4) 8.4 UG/DL (4.5-12.0)
[2016-11-03] MEDS: LIOTHYRONINE 25 MCG TAB PO SCH (08:36)
[2016-11-03] MEDS: HYDROCORTISONE 5MG TABLET PO SCH ×2 (08:36→20:52)
[2016-11-03] MEDS: VERAPAMIL 180 MG SR TAB PO SCH (08:38)
[2016-11-03] MEDS: PANTOPRAZOLE 40MG TAB (PROTONIX) PO SCH (08:38)
[2016-11-03] MEDS: ASPIRIN 81 MG ENTERIC TAB PO SCH (08:39)
[2016-11-03] MEDS: POTASSIUM CHLORIDE 10 MEQ SR TABLET PO SCH ×2 (08:39→20:51)
[2016-11-03] MEDS: DRONABINOL 2.5 MG CAP (MARINOL) PO SCH ×3 (08:39→17:30)
[2016-11-03] MEDS: SENOKOT S TAB PO SCH ×2 (08:40→20:52)
[2016-11-03] MEDS: amLODIPine 5 MG TAB PO SCH (08:40)
[2016-11-03] MEDS: HEPARIN SOD (PORCINE) 5000 UNITS/ML VIAL SC SCH ×2 (08:40→20:51)
[2016-11-03] MEDS: DONEPEZIL 5 MG TAB PO SCH (08:40)
[2016-11-03] MEDS: ONDANSETRON 4MG/2ML VIAL (J2405) IV PRN (11:13)
[2016-11-03 14:00] VITALS: BP 136/65
--- NOTE | 2016-11-03 15:19 | IPNPDOC ---
Text Note Date of Service The patient was seen on 11/03/16. NOTE Subjective: Pt states she feels fatigued, but slightly improved. No CP/SOB/ palpitations/GERARDO. Objective: Vitals: (see below) General: No acute distress, laying comfortably in bed. HEENT: Moist mucous membranes. Neck: No JVD or lymphadenopathy Cardiac: RRR, No murmurs Pulm: Diminished breath sounds at the bases b/l. No wheezing, rhonchi Abd: NT/ND + BS Ext: No edema or cyanosis Neuro: Strength 5/5 BUE and BLE. CN 2-12 intact. F to N intact Negative pronator drift. Negative Babinki. Sensation to fine touch intact. Alert and Oriented to person and hospital. Labs (see below) Images: MRI brain IMPRESSION: 1. There is cerebral and cerebellar atrophy with extensive deep cerebral white matter ischemic change. 2. Possible mild right mastoiditis, correlate clinically. CXR 10/26/16 IMPRESSION: Chronic changes and other findings as described above. Assessment/Plan 1. Severe hypothyroidism - patient has baseline dementia and her had not been taking her medications. TSH down from 123-->48. It is reported that her recently from severe hypothyroidism, and she is currently grieving. Patient is status post IV Synthroid is now back to by mouth. Patient is also on levothyroxine given a low T3 levels. Stress test steroids tapering down. 2. Hyponatremia- likely multifactorial, secondary to hypovolemia and hypothyroidism. Status post IV fluids. Continue thyroid replacement. 3. Nausea/vomiting- resolved. On bowel regimen for constipation. 4. Hypertensive urgency- secondary to medication noncompliance. Blood pressure medications restarted. 5. Dementia- will need 24-hour care. 6. History of CAD- continue current meds 7. CK D stage III- stable. 8. Suicidal ideations- Dr. he had spoken to Odell, who recommends monitoring as patient is going through normal grieving process. 9. Poor appetite- secondary to grief. Calorie count, appetite stimulant. DVT prophy: Heparin SQ. VS,Fishbone, I+O VS, Fishbone, I+O Laboratory Tests 11/03/16 05:51 Red Blood Count 3.85 L, Mean Corpuscular Volume 97.8 H, Mean Corpuscular Hemoglobin 34.0 H, Mean Corpuscular Hemoglobin Concent 34.8, Red Cell Distribution Width 13.3, Calcium Level 8.9 Vital Signs Date Time Temp Pulse Resp B/P (MAP) Pulse Ox O2 Delivery O2 Flow Rate FiO2 11/03/16 14:00 97.5 62 17 136/65 (88) 92 Room Air I&O- Last 24 Hours up to 6 AM 11/03/16 06:00 Intake Total 790 ml Output Total 0 ml Balance 790 ml LUIS GLASER MD Nov 03, 2016 15:19
[2016-11-03] MEDS: ATORVASTATIN 20 MG TAB PO SCH (20:52)
[2016-11-03 22:00] VITALS: BP 142/64
[2016-11-04] MEDS: LEVOTHYROXINE 100MCG TABLET (0.1MG) PO SCH (05:34)
[2016-11-04 06:00] VITALS: BP 145/76
[2016-11-04 06:33] LABS: MEAN CORPUSCULAR HEMOGLOBIN 33.4 pg (27.0-33.0); MEAN CORPUSCULAR HGB CONC 33.8 g/dl (32.0-36.5); MEAN CORPUSCULAR VOLUME 98.9 fl (80.0-96.0); RED CELL DISTRIBUTION WIDTH 13.5 % (11.5-14.5); WHITE BLOOD COUNT 6.6 K/mm3 (4.0-10.0)
[2016-11-04 06:46] LABS: CALCIUM LEVEL 8.6 MG/DL (8.8-10.2); CREATININE FOR GFR 0.99 MG/DL (0.55-1.02); GLOMERULAR FILTRATION RATE 57.3 (>32); MAGNESIUM LEVEL 1.9 MG/DL (1.8-2.4); POTASSIUM SERUM 4.6 MEQ/L (3.5-5.1)
[2016-11-04 07:56] LABS: FREE T4 1.04 NG/DL (0.76-1.46)
[2016-11-04] MEDS: DONEPEZIL 5 MG TAB PO SCH (08:02)
[2016-11-04] MEDS: POTASSIUM CHLORIDE 10 MEQ SR TABLET PO SCH (08:03)
[2016-11-04] MEDS: DRONABINOL 2.5 MG CAP (MARINOL) PO SCH ×3 (08:04→17:13)
[2016-11-04] MEDS: LIOTHYRONINE 25 MCG TAB PO SCH (08:04)
[2016-11-04] MEDS: SENOKOT S TAB PO SCH (08:04)
[2016-11-04] MEDS: HYDROCORTISONE 5MG TABLET PO SCH (08:04)
[2016-11-04] MEDS: amLODIPine 5 MG TAB PO SCH (08:05)
[2016-11-04] MEDS: PANTOPRAZOLE 40MG TAB (PROTONIX) PO SCH (08:05)
[2016-11-04] MEDS: VERAPAMIL 180 MG SR TAB PO SCH (08:05)
[2016-11-04] MEDS: HEPARIN SOD (PORCINE) 5000 UNITS/ML VIAL SC SCH ×2 (08:05→21:44)
[2016-11-04] MEDS: ASPIRIN 81 MG ENTERIC TAB PO SCH (08:05)
--- NOTE | 2016-11-04 11:56 | IPNPDOC ---
Text Note Date of Service The patient was seen on 11/04/16. NOTE Subjective: Pt feels well. Ate apple sauce for breakfast. No CP/SOB/ palpitations/GERARDO. Objective: Vitals: (see below) General: No acute distress, laying comfortably in bed. HEENT: Moist mucous membranes. Neck: No JVD or lymphadenopathy Cardiac: RRR, No murmurs Pulm: Diminished breath sounds at the bases b/l. No wheezing, rhonchi Abd: NT/ND + BS Ext: No edema or cyanosis Neuro: Strength 5/5 BUE and BLE. CN 2-12 intact. F to N intact Negative pronator drift. Negative Babinki. Sensation to fine touch intact. Alert and Oriented to person and hospital. Labs (see below) Images: MRI brain IMPRESSION: 1. There is cerebral and cerebellar atrophy with extensive deep cerebral white matter ischemic change. 2. Possible mild right mastoiditis, correlate clinically. CXR 10/26/16 IMPRESSION: Chronic changes and other findings as described above. Assessment/Plan 1. Severe hypothyroidism - patient has baseline dementia and her had not been taking her medications. TSH down from 123-->48--> 40. It is reported that her recently from severe hypothyroidism, and she is currently grieving. Patient is status post IV Synthroid is now back to by mouth. Patient is also on levothyroxine given a low T3 levels. Stress test steroids tapering down. Thyroid functions improving. 2. Hyponatremia- likely multifactorial, secondary to hypovolemia and hypothyroidism. Status post IV fluids. Continue thyroid replacement. 3. Nausea/vomiting- resolved. On bowel regimen for constipation. 4. Hypertensive urgency- secondary to medication noncompliance. Blood pressure medications restarted. 5. Dementia- will need 24-hour care. 6. History of CAD- continue current meds 7. CK D stage III- stable. 8. Suicidal ideations- he had spoken to Odell, who recommends monitoring as patient is going through normal grieving process. 9. Poor appetite- secondary to grief. Calorie count, appetite stimulant. DVT prophy: Heparin SQ. Encourage PT/OT participation. VS,Fishbone, I+O VS, Fishbone, I+O Laboratory Tests 11/04/16 05:56 Red Blood Count 3.66 L, Mean Corpuscular Volume 98.9 H, Mean Corpuscular Hemoglobin 33.4 H, Mean Corpuscular Hemoglobin Concent 33.8, Red Cell Distribution Width 13.5, Calcium Level 8.6 L Vital Signs Date Time Temp Pulse Resp B/P (MAP) Pulse Ox O2 Delivery O2 Flow Rate FiO2 11/04/16 09:00 Room Air 11/04/16 08:05 64 156/69 11/04/16 06:00 97.0 15 93 I&O- Last 24 Hours up to 6 AM 11/04/16 05:59 Intake Total 210 ml Balance 210 ml LUIS GLASER MD Nov 04, 2016 11:56
[2016-11-04 14:00] VITALS: BP 105/51
[2016-11-04] MEDS: ATORVASTATIN 20 MG TAB PO SCH (21:44)
[2016-11-04 22:00] VITALS: BP 114/57
[2016-11-05] MEDS: LEVOTHYROXINE 100MCG TABLET (0.1MG) PO SCH (05:37)
[2016-11-05 06:00] VITALS: BP 141/66
[2016-11-05 06:03] LABS: MEAN CORPUSCULAR HEMOGLOBIN 33.9 pg (27.0-33.0); MEAN CORPUSCULAR HGB CONC 34.5 g/dl (32.0-36.5); MEAN CORPUSCULAR VOLUME 98.3 fl (80.0-96.0); RED CELL DISTRIBUTION WIDTH 13.3 % (11.5-14.5); WHITE BLOOD COUNT 6.3 K/mm3 (4.0-10.0)
[2016-11-05 06:22] LABS: CALCIUM LEVEL 8.8 MG/DL (8.8-10.2); CREATININE FOR GFR 1.05 MG/DL (0.55-1.02); GLOMERULAR FILTRATION RATE 53.5 (>32); MAGNESIUM LEVEL 2.1 MG/DL (1.8-2.4); POTASSIUM SERUM 4.7 MEQ/L (3.5-5.1)
[2016-11-05 06:42] LABS: THYROXINE (T4) 10.9 UG/DL (4.5-12.0)
[2016-11-05] MEDS: DRONABINOL 2.5 MG CAP (MARINOL) PO SCH ×3 (08:01→17:40)
[2016-11-05] MEDS: POTASSIUM CHLORIDE 10 MEQ SR TABLET PO SCH (09:52)
[2016-11-05] MEDS: HYDROCORTISONE 5MG TABLET PO SCH (09:52)
[2016-11-05] MEDS: PANTOPRAZOLE 40MG TAB (PROTONIX) PO SCH (09:53)
[2016-11-05] MEDS: VERAPAMIL 180 MG SR TAB PO SCH (09:53)
[2016-11-05] MEDS: amLODIPine 5 MG TAB PO SCH (09:54)
[2016-11-05] MEDS: ASPIRIN 81 MG ENTERIC TAB PO SCH (09:54)
[2016-11-05] MEDS: DONEPEZIL 5 MG TAB PO SCH (09:54)
[2016-11-05] MEDS: SENOKOT S TAB PO SCH (09:54)
[2016-11-05] MEDS: HEPARIN SOD (PORCINE) 5000 UNITS/ML VIAL SC SCH ×2 (09:55→20:27)
[2016-11-05] MEDS: LIOTHYRONINE 25 MCG TAB PO SCH (09:55)
--- NOTE | 2016-11-05 13:34 | IPNPDOC ---
Text Note Date of Service The patient was seen on 11/05/16. NOTE Subjective: Pt states she feels better than yesterday. Denies Abd pain/cp/sob. tolerating breakfast. Objective: Vitals: (see below) General: No acute distress, laying comfortably in bed. HEENT: Moist mucous membranes. Neck: No JVD or lymphadenopathy Cardiac: RRR, No murmurs Pulm: Diminished breath sounds at the bases b/l. No wheezing, rhonchi Abd: NT/ND + BS Ext: No edema or cyanosis Neuro: Strength 5/5 BUE and BLE. CN 2-12 intact. F to N intact Alert and Oriented to person and hospital. Labs (see below) Images: MRI brain IMPRESSION: 1. There is cerebral and cerebellar atrophy with extensive deep cerebral white matter ischemic change. 2. Possible mild right mastoiditis, correlate clinically. CXR 10/26/16 IMPRESSION: Chronic changes and other findings as described above. Assessment/Plan 1. Severe hypothyroidism - patient has baseline dementia and her had not been taking her medications. TSH down from 123-->48--> 40-->36. It is reported that her recently from severe hypothyroidism, and she is currently grieving. Patient is status post IV Synthroid is now back to by mouth. Patient is also on levothyroxine given a low T3 levels. Stress test steroids tapering down. Thyroid functions continue to improving. 2. Hyponatremia- likely multifactorial, secondary to hypovolemia and hypothyroidism. Status post IV fluids. Continue thyroid replacement. 3. Nausea/vomiting- resolved. On bowel regimen for constipation. 4. Hypertensive urgency- secondary to medication noncompliance. Blood pressure medications restarted. 5. Dementia- will need 24-hour care. 6. History of CAD- continue current meds 7. CK D stage III- stable. 8. Suicidal ideations- Dr. He had spoken to Odell, who recommends monitoring as patient is going through normal grieving process. 9. Poor appetite- secondary to grief. Calorie count, appetite stimulant. DVT prophy: Heparin SQ. Encourage PT/OT participation. PT working with family on training with patient transfer. VS,Fishbone, I+O VS, Fishbone, I+O Laboratory Tests 11/05/16 05:15 Red Blood Count 3.53 L, Mean Corpuscular Volume 98.3 H, Mean Corpuscular Hemoglobin 33.9 H, Mean Corpuscular Hemoglobin Concent 34.5, Red Cell Distribution Width 13.3, Calcium Level 8.8 Vital Signs Date Time Temp Pulse Resp B/P (MAP) Pulse Ox O2 Delivery O2 Flow Rate FiO2 11/05/16 10:00 Room Air 11/05/16 09:53 72 112/60 11/05/16 06:00 97.5 16 97 I&O- Last 24 Hours up to 6 AM 11/05/16 06:00 Intake Total 0 ml Output Total 0 ml Balance 0 ml LUIS GLASER MD Nov 05, 2016 13:34
[2016-11-05 14:00] VITALS: BP 100/56
[2016-11-05] MEDS: ATORVASTATIN 20 MG TAB PO SCH (20:27)
[2016-11-05 22:00] VITALS: BP 99/49
[2016-11-06] MEDS: LEVOTHYROXINE 100MCG TABLET (0.1MG) PO SCH (05:38)
[2016-11-06 06:00] VITALS: BP 136/71
[2016-11-06 06:12] LABS: MEAN CORPUSCULAR HEMOGLOBIN 33.6 pg (27.0-33.0); MEAN CORPUSCULAR HGB CONC 33.8 g/dl (32.0-36.5); MEAN CORPUSCULAR VOLUME 99.5 fl (80.0-96.0); RED CELL DISTRIBUTION WIDTH 13.5 % (11.5-14.5); WHITE BLOOD COUNT 9.2 K/mm3 (4.0-10.0)
[2016-11-06 07:05] LABS: CREATININE FOR GFR 1.25 MG/DL (0.55-1.02); GLOMERULAR FILTRATION RATE 43.8 (>32); MAGNESIUM LEVEL 2.2 MG/DL (1.8-2.4); POTASSIUM SERUM 4.9 MEQ/L (3.5-5.1)
[2016-11-06] MEDS ORDERED: NS 1,000 ML IV ONE (09:00)
[2016-11-06] MEDS: HEPARIN SOD (PORCINE) 5000 UNITS/ML VIAL SC SCH ×2 (09:10→21:12)
[2016-11-06] MEDS: VERAPAMIL 180 MG SR TAB PO SCH (09:10)
[2016-11-06] MEDS: LIOTHYRONINE 25 MCG TAB PO SCH (09:11)
[2016-11-06] MEDS: PANTOPRAZOLE 40MG TAB (PROTONIX) PO SCH (09:11)
[2016-11-06] MEDS: ASPIRIN 81 MG ENTERIC TAB PO SCH (09:11)
[2016-11-06] MEDS: POTASSIUM CHLORIDE 10 MEQ SR TABLET PO SCH (09:11)
[2016-11-06] MEDS: amLODIPine 5 MG TAB PO SCH (09:11)
[2016-11-06] MEDS: SENOKOT S TAB PO SCH (09:11)
[2016-11-06] MEDS: DRONABINOL 2.5 MG CAP (MARINOL) PO SCH ×3 (09:12→18:07)
[2016-11-06] MEDS: DONEPEZIL 5 MG TAB PO SCH (09:12)
[2016-11-06 09:44] LABS: FREE T4 1.15 NG/DL (0.76-1.46)
--- NOTE | 2016-11-06 12:55 | IPNPDOC ---
Text Note Date of Service The patient was seen on 11/06/16. NOTE Subjective: Pt states she feels well. Denies any complaints. Objective: Vitals: (see below) General: No acute distress, laying comfortably in bed. HEENT: Moist mucous membranes. Neck: No JVD or lymphadenopathy Cardiac: RRR, No murmurs Pulm: Diminished breath sounds at the bases b/l. No wheezing, rhonchi Abd: NT/ND + BS Ext: No edema or cyanosis Neuro: Strength 5/5 BUE and BLE. CN 2-12 intact. F to N intact Alert and Oriented to person and hospital. Labs (see below) Images: MRI brain IMPRESSION: 1. There is cerebral and cerebellar atrophy with extensive deep cerebral white matter ischemic change. 2. Possible mild right mastoiditis, correlate clinically. CXR 10/26/16 IMPRESSION: Chronic changes and other findings as described above. Assessment/Plan 1. Severe hypothyroidism - patient has baseline dementia and her had not been taking her medications. TSH down from 123-->48--> 40-->36-->28. It is reported that her recently from severe hypothyroidism, and she is currently grieving. Patient is status post IV Synthroid is now back to by mouth. Patient is also on levothyroxine given a low T3 levels. Stress test steroids tapering down. Thyroid functions continue to improving. 2. Hyponatremia- likely multifactorial, secondary to hypovolemia and hypothyroidism. Status post IV fluids. Continue thyroid replacement. 3. Nausea/vomiting- resolved. On bowel regimen for constipation. 4. Hypertensive urgency- secondary to medication noncompliance. Blood pressure medications restarted. 5. Dementia- will need 24-hour care. 6. History of CAD- continue current meds 7. CK D stage III- stable. 8. Suicidal ideations- Dr. He had spoken to Odell, who recommends monitoring as patient is going through normal grieving process. 9. Poor appetite- secondary to grief. Calorie count, appetite stimulant. DVT prophy: Heparin SQ. Encourage PT/OT participation. Daughter states she is unable to take care of pt. Case management looking into computer terminal operator care facilities. VS,Fishbone, I+O VS, Fishbone, I+O Laboratory Tests 11/06/16 05:46 Red Blood Count 3.35 L, Mean Corpuscular Volume 99.5 H, Mean Corpuscular Hemoglobin 33.6 H, Mean Corpuscular Hemoglobin Concent 33.8, Red Cell Distribution Width 13.5, Calcium Level 9.0 Vital Signs Date Time Temp Pulse Resp B/P (MAP) Pulse Ox O2 Delivery O2 Flow Rate FiO2 11/06/16 09:11 69 136/71 11/06/16 06:00 97.3 20 97 Room Air I&O- Last 24 Hours up to 6 AM 11/06/16 06:00 Intake Total 510 ml Output Total 0 ml Balance 510 ml LUIS GLASER MD Nov 06, 2016 12:55
[2016-11-06 14:00] VITALS: BP 107/53
[2016-11-06] MEDS: ATORVASTATIN 20 MG TAB PO SCH (21:12)
[2016-11-06 22:00] VITALS: BP 133/63
[2016-11-07] MEDS: LEVOTHYROXINE 100MCG TABLET (0.1MG) PO SCH (05:58)
[2016-11-07 06:00] VITALS: BP 139/64
[2016-11-07 06:57] LABS: THYROXINE (T4) 10.3 UG/DL (4.5-12.0)
[2016-11-07] MEDS: DRONABINOL 2.5 MG CAP (MARINOL) PO SCH ×3 (08:34→17:14)
[2016-11-07] MEDS: ACETAMINOPHEN TAB 650MG DOSE (2X325MG) PO PRN (08:36)
[2016-11-07] MEDS: amLODIPine 5 MG TAB PO SCH (09:00)
[2016-11-07 09:45] VITALS: BP 100/50
[2016-11-07] MEDS: POTASSIUM CHLORIDE 10 MEQ SR TABLET PO SCH (10:35)
[2016-11-07] MEDS: PANTOPRAZOLE 40MG TAB (PROTONIX) PO SCH (10:36)
[2016-11-07] MEDS: ASPIRIN 81 MG ENTERIC TAB PO SCH (10:36)
[2016-11-07] MEDS: DONEPEZIL 5 MG TAB PO SCH (10:36)
[2016-11-07] MEDS: HEPARIN SOD (PORCINE) 5000 UNITS/ML VIAL SC SCH ×2 (10:37→20:46)
[2016-11-07] MEDS: SENOKOT S TAB PO SCH (10:38)
--- NOTE | 2016-11-07 11:36 | IPNPDOC ---
Text Note Date of Service The patient was seen on 11/07/16. NOTE Subjective: Pt states she feels well. Denies any complaints. Ate all her breakfast this am. Objective: Vitals: (see below) General: No acute distress, laying comfortably in bed. HEENT: Moist mucous membranes. Neck: No JVD or lymphadenopathy Cardiac: RRR, No murmurs Pulm: Diminished breath sounds at the bases b/l. No wheezing, rhonchi Abd: Mild difuse abd discomfort and distension. No rebound/guarding/rigidity. + BS Ext: No edema or cyanosis Neuro: Strength 5/5 BUE and BLE. CN 2-12 intact. F to N intact Alert and Oriented to person and hospital. Labs (see below) Images: MRI brain IMPRESSION: 1. There is cerebral and cerebellar atrophy with extensive deep cerebral white matter ischemic change. 2. Possible mild right mastoiditis, correlate clinically. CXR 10/26/16 IMPRESSION: Chronic changes and other findings as described above. Assessment/Plan 1. Severe hypothyroidism - patient has baseline dementia and her had not been taking her medications. TSH down from 123-->48--> 40-->36-->28. It is reported that her recently from severe hypothyroidism, and she is currently grieving. Patient is status post IV Synthroid is now back to by mouth. D/c liothyroxine as T3 levels improved. Stress test steroids d/c. Thyroid functions continue to improving. 2. Hyponatremia- likely multifactorial, secondary to hypovolemia and hypothyroidism. Status post IV fluids. Continue thyroid replacement. 3. Nausea/vomiting- resolved. On bowel regimen for constipation. 4. Hypertensive urgency- secondary to medication noncompliance. Blood pressure medications restarted. 5. Dementia- will need 24-hour care. 6. History of CAD- continue current meds 7. CK D stage III- stable. 8. Suicidal ideations- He had spoken to Odell, who recommends monitoring as patient is going through normal grieving process. 9. Poor appetite- secondary to grief. Calorie count, appetite stimulant. 10. ABd discomfort and distension - will be sent for CT abd/pelvis today. DVT prophy: Heparin SQ. Encourage PT/OT participation. Daughter states she is unable to take care of pt. Case management looking into [facility] care facilities. VS,Leif, I+O VS, Fishbone, I+O Vital Signs Date Time Temp Pulse Resp B/P (MAP) Pulse Ox O2 Delivery O2 Flow Rate FiO2 11/07/16 09:45 97.1 80 17 100/50 (67) 95 Room Air I&O- Last 24 Hours up to 6 AM 11/07/16 06:00 Intake Total 1440 ml Balance 1440 ml LUIS GLASER MD Nov 07, 2016 11:36
[2016-11-07] MEDS ORDERED: GASTROGRAFIN SOLUTION 30ML (Q9963) PO ONE (12:00)
[2016-11-07] MEDS ORDERED: GASTROGRAFIN SOLUTION 30ML PO ONE (12:30)
[2016-11-07] MEDS: VERAPAMIL 180 MG SR TAB PO SCH (12:35)
[2016-11-07] MEDS ORDERED: ISOVUE-370 76% 100ML VIAL (Q9967) As Ordered ONE (13:47)
--- NOTE | 2016-11-07 14:37 | REP ---
Clinical: Abdominal pain and distension. Technique: Axial contrast enhanced images from the lung bases to the pubic symphysis using oral and 100 ml Isovue 370 intravenous contrast material with coronal and sagittal re-formations. Findings: Small left pleural effusion and passive atelectasis. Liver, spleen, pancreas, right kidney and bilateral adrenal glands are normal. Left kidney demonstrates mild atrophic change and small subcentimeter cortical cysts. The gallbladder is mildly distended but without pericholecystic fluid to suggest acute cholecystitis. The enteric system is relatively unremarkable and without evidence for obstruction or acute inflammatory process. Colonic diverticulosis noted without acute diverticulitis fecal impaction at the rectum distended to approximately 6 cm diameter. No ascites. No obvious adenopathy. At atherosclerotic changes to the aorta and vasculature without aneurysm. No free air. Musculoskeletal structures demonstrate age-related degenerative change without focal osseous abnormality and left hip replacement. Impression: 1. Small left pleural effusion and passive atelectasis. 2. Diverticulosis without acute diverticulitis and fecal impaction at the rectum to 6 cm diameter. 3. Further chronic changes as described above. No free fluid or free air. Signed by James Dickson MD 11/07/2016 02:29 P
[2016-11-07] MEDS: ATORVASTATIN 20 MG TAB PO SCH (20:46)
[2016-11-07 22:00] VITALS: BP 115/58
[2016-11-08] MEDS: LEVOTHYROXINE 100MCG TABLET (0.1MG) PO SCH (05:53)
[2016-11-08 06:00] VITALS: BP 146/65
[2016-11-08] MEDS ORDERED: BISACODYL 10 MG SUPP PR ONE (07:30)
[2016-11-08 07:41] LABS: MEAN CORPUSCULAR HEMOGLOBIN 33.6 pg (27.0-33.0); MEAN CORPUSCULAR HGB CONC 33.8 g/dl (32.0-36.5); MEAN CORPUSCULAR VOLUME 99.3 fl (80.0-96.0); RED CELL DISTRIBUTION WIDTH 13.4 % (11.5-14.5); WHITE BLOOD COUNT 7.4 K/mm3 (4.0-10.0)
[2016-11-08 08:14] LABS: CALCIUM LEVEL 8.6 MG/DL (8.8-10.2); CREATININE FOR GFR 1.07 MG/DL (0.55-1.02); FREE T4 1.47 NG/DL (0.76-1.46); GLOMERULAR FILTRATION RATE 52.4 (>32); POTASSIUM SERUM 4.8 MEQ/L (3.5-5.1)
[2016-11-08] MEDS: DONEPEZIL 5 MG TAB PO SCH (08:25)
[2016-11-08] MEDS: VERAPAMIL 180 MG SR TAB PO SCH (08:26)
[2016-11-08] MEDS: amLODIPine 5 MG TAB PO SCH (08:26)
[2016-11-08] MEDS: DRONABINOL 2.5 MG CAP (MARINOL) PO SCH ×3 (08:27→18:37)
[2016-11-08] MEDS: ASPIRIN 81 MG ENTERIC TAB PO SCH (08:27)
[2016-11-08] MEDS: SENOKOT S TAB PO SCH (08:27)
[2016-11-08] MEDS: HEPARIN SOD (PORCINE) 5000 UNITS/ML VIAL SC SCH ×2 (08:27→20:31)
[2016-11-08] MEDS: PANTOPRAZOLE 40MG TAB (PROTONIX) PO SCH (08:27)
[2016-11-08] MEDS: ACETAMINOPHEN TAB 650MG DOSE (2X325MG) PO PRN (08:31)
--- NOTE | 2016-11-08 08:32 | IPNPDOC ---
Text Note Date of Service The patient was seen on 11/08/16. NOTE Subjective: Pt states she feels well. Denies any complaints. No acute changes overnight. Objective: Vitals: (see below) General: No acute distress, laying comfortably in bed. HEENT: Moist mucous membranes. Neck: No JVD or lymphadenopathy Cardiac: RRR, No murmurs Pulm: Diminished breath sounds at the bases b/l. No wheezing, rhonchi Abd: Mild difuse abd discomfort and distension. No rebound/guarding/rigidity. + BS Ext: No edema or cyanosis Neuro: Strength 5/5 BUE and BLE. CN 2-12 intact. F to N intact Alert and Oriented to person and hospital. Labs (see below) Images: MRI brain IMPRESSION: 1. There is cerebral and cerebellar atrophy with extensive deep cerebral white matter ischemic change. 2. Possible mild right mastoiditis, correlate clinically. CXR 10/26/16 IMPRESSION: Chronic changes and other findings as described above. Assessment/Plan 1. Severe hypothyroidism - patient has baseline dementia and her had not been taking her medications. TSH down from 123-->48--> 40-->36-->28. It is reported that her recently from severe hypothyroidism, and she is currently grieving. Patient is status post IV Synthroid is now back to by mouth. D/c liothyroxine as T3 levels improved. Stress test steroids d/c. Thyroid functions continue to improving. 2. Hyponatremia- likely multifactorial, secondary to hypovolemia and hypothyroidism. Status post IV fluids. Continue thyroid replacement. 3. Nausea/vomiting- resolved. On bowel regimen for constipation. 4. Hypertensive urgency- secondary to medication noncompliance. Blood pressure medications restarted. 5. Dementia- will need 24-hour care. 6. History of CAD- continue current meds 7. CK D stage III- stable. 8. Suicidal ideations- He had spoken to Odell, who recommends monitoring as patient is going through normal grieving process. 9. Poor appetite- secondary to grief. Calorie count, appetite stimulant. 10. Constipation - started on bowel regimen. DVT prophy: Heparin SQ. Encourage PT/OT participation. Daughter states she is unable to take care of pt. Case management looking into manager adult care facilities. VS,Fishbone, I+O VS, Fishbone, I+O Laboratory Tests 11/08/16 07:33 Red Blood Count 3.30 L, Mean Corpuscular Volume 99.3 H, Mean Corpuscular Hemoglobin 33.6 H, Mean Corpuscular Hemoglobin Concent 33.8, Red Cell Distribution Width 13.4, Calcium Level 8.6 L Vital Signs Date Time Temp Pulse Resp B/P (MAP) Pulse Ox O2 Delivery O2 Flow Rate FiO2 11/08/16 08:26 68 128/59 11/08/16 06:00 98.1 20 97 11/07/16 20:10 Room Air I&O- Last 24 Hours up to 6 AM 11/08/16 06:00 Intake Total 530 ml Balance 530 ml LUIS GLASER MD Nov 08, 2016 08:32
[2016-11-08 14:00] VITALS: BP 108/55
[2016-11-08] MEDS: ATORVASTATIN 20 MG TAB PO SCH (20:31)
[2016-11-08 22:00] VITALS: BP 119/64
[2016-11-09] MEDS: LEVOTHYROXINE 100MCG TABLET (0.1MG) PO SCH (05:41)
[2016-11-09 06:00] VITALS: BP 146/65
[2016-11-09 06:18] LABS: MEAN CORPUSCULAR HEMOGLOBIN 33.5 pg (27.0-33.0); MEAN CORPUSCULAR HGB CONC 33.7 g/dl (32.0-36.5); MEAN CORPUSCULAR VOLUME 99.6 fl (80.0-96.0); RED CELL DISTRIBUTION WIDTH 13.4 % (11.5-14.5); WHITE BLOOD COUNT 5.6 K/mm3 (4.0-10.0)
[2016-11-09 06:47] LABS: CALCIUM LEVEL 8.4 MG/DL (8.8-10.2); CREATININE FOR GFR 0.96 MG/DL (0.55-1.02); FREE T4 1.31 NG/DL (0.76-1.46); GLOMERULAR FILTRATION RATE 59.4 (>32); MAGNESIUM LEVEL 2.2 MG/DL (1.8-2.4); POTASSIUM SERUM 4.5 MEQ/L (3.5-5.1)
--- NOTE | 2016-11-09 07:20 | IPNPDOC ---
Text Note Date of Service The patient was seen on 11/09/16. NOTE Subjective: Pt states she feels well. Denies any complaints. Objective: Vitals: (see below) General: No acute distress, laying comfortably in bed. HEENT: Moist mucous membranes. Neck: No JVD or lymphadenopathy Cardiac: RRR, No murmurs Pulm: Diminished breath sounds at the bases b/l. No wheezing, rhonchi Abd: NT/ Mild distension. No rebound/guarding/rigidity. + BS Ext: No edema or cyanosis Neuro: Strength 5/5 BUE and BLE. CN 2-12 intact. F to N intact Alert and Oriented to person and hospital. Labs (see below) Images: MRI brain IMPRESSION: 1. There is cerebral and cerebellar atrophy with extensive deep cerebral white matter ischemic change. 2. Possible mild right mastoiditis, correlate clinically. CXR 10/26/16 IMPRESSION: Chronic changes and other findings as described above. Assessment/Plan 1. Severe hypothyroidism - patient has baseline dementia and her had not been taking her medications. TSH down from 123-->48--> 40-->36-->28. It is reported that her recently from severe hypothyroidism, and she is currently grieving. Patient is status post IV Synthroid is now back to by mouth. Stress test steroids d/c. Thyroid functions continue to improving. Liothyronine as T3 decreasing. 2. Hyponatremia- likely multifactorial, secondary to hypovolemia and hypothyroidism. Status post IV fluids. Continue thyroid replacement. 3. Nausea/vomiting- resolved. On bowel regimen for constipation. 4. Hypertensive urgency- secondary to medication noncompliance. Blood pressure medications restarted. 5. Dementia- will need 24-hour care. 6. History of CAD- continue current meds 7. CK D stage III- stable. 8. Suicidal ideations- DrBurke He had spoken to Odell, who recommends monitoring as patient is going through normal grieving process. 9. Poor appetite- secondary to grief. Calorie count, appetite stimulant. 10. Constipation - started on bowel regimen. Fleet enema today. DVT prophy: Heparin SQ. Encourage PT/OT participation. Daughter states she is unable to take care of pt. Case management looking into rodent exterminator care facilities. VS,Fishbone, I+O VS, Fishbone, I+O Laboratory Tests 11/08/16 07:33 Red Blood Count 3.30 L, Mean Corpuscular Volume 99.3 H, Mean Corpuscular Hemoglobin 33.6 H, Mean Corpuscular Hemoglobin Concent 33.8, Red Cell Distribution Width 13.4, Calcium Level 8.6 L 11/09/16 05:29 Red Blood Count 3.27 L, Mean Corpuscular Volume 99.6 H, Mean Corpuscular Hemoglobin 33.5 H, Mean Corpuscular Hemoglobin Concent 33.7, Red Cell Distribution Width 13.4, Calcium Level 8.4 L Vital Signs Date Time Temp Pulse Resp B/P (MAP) Pulse Ox O2 Delivery O2 Flow Rate FiO2 11/09/16 06:00 97.7 71 18 146/65 (92) 97 11/08/16 20:20 Room Air I&O- Last 24 Hours up to 6 AM 11/09/16 06:00 Intake Total 540 ml Output Total 0 ml Balance 540 ml LUIS GLASER MD Nov 09, 2016 07:20
[2016-11-09] MEDS: HEPARIN SOD (PORCINE) 5000 UNITS/ML VIAL SC SCH ×2 (08:47→21:17)
[2016-11-09] MEDS: LIOTHYRONINE 25 MCG TAB PO SCH (08:48)
[2016-11-09] MEDS: VERAPAMIL 180 MG SR TAB PO SCH (08:48)
[2016-11-09] MEDS: DONEPEZIL 5 MG TAB PO SCH (08:48)
[2016-11-09] MEDS: SENOKOT S TAB PO SCH (08:49)
[2016-11-09] MEDS: DRONABINOL 2.5 MG CAP (MARINOL) PO SCH ×3 (08:49→17:39)
[2016-11-09] MEDS: PANTOPRAZOLE 40MG TAB (PROTONIX) PO SCH (08:49)
[2016-11-09] MEDS: ASPIRIN 81 MG ENTERIC TAB PO SCH (08:49)
[2016-11-09] MEDS: amLODIPine 5 MG TAB PO SCH (08:50)
[2016-11-09] MEDS: FLEET ENEMA PR PRN (10:19)
[2016-11-09 14:00] VITALS: BP 113/56
[2016-11-09] MEDS: ATORVASTATIN 20 MG TAB PO SCH (21:16)
[2016-11-09 22:00] VITALS: BP 125/60
[2016-11-10 05:53] LABS: MEAN CORPUSCULAR HEMOGLOBIN 33.7 pg (27.0-33.0); MEAN CORPUSCULAR HGB CONC 33.5 g/dl (32.0-36.5); MEAN CORPUSCULAR VOLUME 100.7 fl (80.0-96.0); RED CELL DISTRIBUTION WIDTH 13.6 % (11.5-14.5); WHITE BLOOD COUNT 7.8 K/mm3 (4.0-10.0)
[2016-11-10] MEDS: LEVOTHYROXINE 100MCG TABLET (0.1MG) PO SCH (05:59)
[2016-11-10 06:00] VITALS: BP 148/69
[2016-11-10 06:27] LABS: ANION GAP 10 MEQ/L (8-16); BLOOD UREA NITROGEN 26 MG/DL (7-18); CALCIUM LEVEL 8.8 MG/DL (8.8-10.2); CARBON DIOXIDE LEVEL 25 MEQ/L (21-32); CHLORIDE LEVEL 102 MEQ/L (98-107); CREATININE FOR GFR 0.83 MG/DL (0.55-1.02); FREE T4 1.33 NG/DL (0.76-1.46); GLOMERULAR FILTRATION RATE > 60.0 (>32); GLUCOSE, FASTING 89 MG/DL (83-110); SODIUM LEVEL 137 MEQ/L (136-145)
[2016-11-10] MEDS: PANTOPRAZOLE 40MG TAB (PROTONIX) PO SCH (07:53)
[2016-11-10] MEDS: LIOTHYRONINE 25 MCG TAB PO SCH (07:53)
[2016-11-10] MEDS: DRONABINOL 2.5 MG CAP (MARINOL) PO SCH ×3 (07:53→17:16)
[2016-11-10] MEDS: VERAPAMIL 180 MG SR TAB PO SCH (07:53)
[2016-11-10] MEDS: SENOKOT S TAB PO SCH (07:53)
[2016-11-10] MEDS: amLODIPine 5 MG TAB PO SCH (07:54)
[2016-11-10] MEDS: DONEPEZIL 5 MG TAB PO SCH (07:54)
[2016-11-10] MEDS: ASPIRIN 81 MG ENTERIC TAB PO SCH (07:54)
[2016-11-10] MEDS: HEPARIN SOD (PORCINE) 5000 UNITS/ML VIAL SC SCH ×2 (07:55→20:11)
--- NOTE | 2016-11-10 13:06 | IPNPDOC ---
Text Note Date of Service The patient was seen on 11/10/16. NOTE Subjective: Patient is an 81 year old female with a PMHx of Alzheimer's dementia, CKD3, CAD, HTN and Hypothyroidism who was brought to the ER by family because of nausea, vomiting and failure to take medications. She was found to have electrolyte abnormalities, rhabdomyolysis and elevated blood pressure. She was also noted to be severely hypothyroid. Patient was admitted to hospitalist service. Patient was seen and examined at the bedside. She has no new complaints today. Objective: Vitals (See below) General: Lying in bed, no acute distress, comfortable, Awake and alert HEENT: NC, AT CVS: RRR, +S1S2 Lungs: Fair air entry b/l, -w/r/r Abdomen: Soft, ND, NT, +BSx4 Extremities: +PPx4, - Edema, - Calf tenderness Assessment and plan: 1. Severe hypothyroidism - 2/2 non-compliance with medications - Has underlying dementia that has worsened her non-compliance - TSH has continued to trend down - s/p IV levothyroxine - s/p stress dose of steroids - c/w Levothyroxine 112.5 PO 2. s/p Hyponatremia - likely 2/2 hypovolemia and hypothyroidism - s/p IV fluids 3. s/p Nausea and Vomiting - likely 2/2 constipation - c/w bowel regimen 4. s/p Hypertensive urgency - 2/2 non-compliance - c/w Amlodipine and Verapamil 5. Dementia 6. CAD - c/w ASA, Atorvastatin, 7. Elevated Cr - less likely CKD3 - Cr better than baseline 8. Suicidal ideation - likely 2/2 grieving - He discussed with psychiatry (Odell); normal grieving process - Poor appetite 9. Constipation - c/w bowel regimen 10. DVT prophylaxis - c/w Heparin DVT prophy: Heparin SQ. Disposition: - Looking into placement options VS,Fishbone, I+O VS, Fishbone, I+O Laboratory Tests 11/10/16 05:25 Red Blood Count 3.23 L, Mean Corpuscular Volume 100.7 H, Mean Corpuscular Hemoglobin 33.7 H, Mean Corpuscular Hemoglobin Concent 33.5, Red Cell Distribution Width 13.6, Calcium Level 8.8 Vital Signs Date Time Temp Pulse Resp B/P (MAP) Pulse Ox O2 Delivery O2 Flow Rate FiO2 11/10/16 07:54 73 148/69 11/10/16 06:00 98.2 17 98 Room Air I&O- Last 24 Hours up to 6 AM 11/10/16 06:00 Intake Total 680 ml Output Total 0 ml Balance 680 ml BRAD KRISHNA MD Nov 10, 2016 13:06
[2016-11-10 14:00] VITALS: BP 105/52
[2016-11-10] MEDS: ATORVASTATIN 20 MG TAB PO SCH (20:10)
[2016-11-10 22:00] VITALS: BP 105/51
[2016-11-11] MEDS: LEVOTHYROXINE 100MCG TABLET (0.1MG) PO SCH (05:18)
[2016-11-11 06:00] VITALS: BP 136/60
[2016-11-11 06:32] LABS: MEAN CORPUSCULAR HEMOGLOBIN 33.2 pg (27.0-33.0); MEAN CORPUSCULAR HGB CONC 33.4 g/dl (32.0-36.5); MEAN CORPUSCULAR VOLUME 99.3 fl (80.0-96.0); WHITE BLOOD COUNT 6.9 K/mm3 (4.0-10.0)
[2016-11-11 06:58] LABS: ANION GAP 11 MEQ/L (8-16); BLOOD UREA NITROGEN 28 MG/DL (7-18); CARBON DIOXIDE LEVEL 25 MEQ/L (21-32); CHLORIDE LEVEL 102 MEQ/L (98-107); CREATININE FOR GFR 0.89 MG/DL (0.55-1.02); FREE T4 1.48 NG/DL (0.76-1.46); GLOMERULAR FILTRATION RATE > 60.0 (>32); GLUCOSE, FASTING 92 MG/DL (83-110); POTASSIUM SERUM 4.1 MEQ/L (3.5-5.1); SODIUM LEVEL 138 MEQ/L (136-145)
[2016-11-11] MEDS: HEPARIN SOD (PORCINE) 5000 UNITS/ML VIAL SC SCH ×2 (08:22→21:11)
[2016-11-11] MEDS: VERAPAMIL 180 MG SR TAB PO SCH (08:22)
[2016-11-11] MEDS: DONEPEZIL 5 MG TAB PO SCH (08:23)
[2016-11-11] MEDS: DRONABINOL 2.5 MG CAP (MARINOL) PO SCH ×3 (08:23→18:17)
[2016-11-11] MEDS: SENOKOT S TAB PO SCH (08:23)
[2016-11-11] MEDS: PANTOPRAZOLE 40MG TAB (PROTONIX) PO SCH (08:23)
[2016-11-11] MEDS: ASPIRIN 81 MG ENTERIC TAB PO SCH (08:25)
[2016-11-11] MEDS: amLODIPine 5 MG TAB PO SCH (08:25)
[2016-11-11] MEDS: LIOTHYRONINE 25 MCG TAB PO SCH (08:26)
[2016-11-11 14:00] VITALS: BP 100/49
--- NOTE | 2016-11-11 14:02 | IPNPDOC ---
Text Note Date of Service The patient was seen on 11/11/16. NOTE Subjective: Patient is an 81 year old female with a PMHx of Alzheimer's dementia, CKD3, CAD, HTN and Hypothyroidism who was brought to the ER by family because of nausea, vomiting and failure to take medications. She was found to have electrolyte abnormalities, rhabdomyolysis and elevated blood pressure. She was also noted to be severely hypothyroid. Patient was admitted to hospitalist service. Patient was seen and examined at the bedside. She notes that she has a poor appetite. Objective: Vitals (See below) General: Lying in bed, no acute distress, comfortable, Awake and alert HEENT: NC, AT CVS: RRR, +S1S2 Lungs: Fair air entry b/l, -w/r/r Abdomen: Soft, ND, NT, +BSx4 Extremities: +PPx4, - Edema, - Calf tenderness Assessment and plan: 1. Severe hypothyroidism - 2/2 non-compliance with medications - Has underlying dementia that has worsened her non-compliance - TSH has continued to trend down - s/p IV levothyroxine - s/p stress dose of steroids - c/w Levothyroxine 112.5 PO 2. s/p Hyponatremia - likely 2/2 hypovolemia and hypothyroidism - s/p IV fluids 3. s/p Nausea and Vomiting - likely 2/2 constipation - c/w bowel regimen 4. s/p Hypertensive urgency - 2/2 non-compliance - c/w Amlodipine and Verapamil 5. Dementia 6. CAD - c/w ASA, Atorvastatin, 7. Elevated Cr - less likely CKD3 - Cr better than baseline 8. Suicidal ideation - likely 2/2 grieving - He discussed with psychiatry (Odell); normal grieving process - Poor appetite 9. Constipation - c/w bowel regimen 10. DVT prophylaxis - c/w Heparin DVT prophy: Heparin SQ. Disposition: - Continuing to look for placement options VS,Fishbone, I+O VS, Fishbone, I+O Laboratory Tests 11/11/16 05:45 Red Blood Count 3.38 L, Mean Corpuscular Volume 99.3 H, Mean Corpuscular Hemoglobin 33.2 H, Mean Corpuscular Hemoglobin Concent 33.4, Red Cell Distribution Width 13.0, Calcium Level 9.0 Vital Signs Date Time Temp Pulse Resp B/P (MAP) Pulse Ox O2 Delivery O2 Flow Rate FiO2 11/11/16 09:30 Room Air 11/11/16 08:25 71 135/62 11/11/16 06:00 97.6 20 96 I&O- Last 24 Hours up to 6 AM 11/11/16 06:00 Intake Total 700 ml Output Total 200 ml Balance 500 ml BRAD KRISHNA MD Nov 11, 2016 14:02
[2016-11-11] MEDS: ACETAMINOPHEN TAB 650MG DOSE (2X325MG) PO PRN (21:10)
[2016-11-11] MEDS: ATORVASTATIN 20 MG TAB PO SCH (21:11)
[2016-11-11 22:00] VITALS: BP 121/60
[2016-11-12] MEDS: LEVOTHYROXINE 100MCG TABLET (0.1MG) PO SCH (05:50)
[2016-11-12 06:00] VITALS: BP 157/74
[2016-11-12 06:00] LABS: MEAN CORPUSCULAR HEMOGLOBIN 33.5 pg (27.0-33.0); MEAN CORPUSCULAR HGB CONC 34.2 g/dl (32.0-36.5); RED CELL DISTRIBUTION WIDTH 13.4 % (11.5-14.5)
[2016-11-12 06:31] LABS: ANION GAP 9 MEQ/L (8-16); BLOOD UREA NITROGEN 29 MG/DL (7-18); CARBON DIOXIDE LEVEL 26 MEQ/L (21-32); CHLORIDE LEVEL 103 MEQ/L (98-107); CREATININE FOR GFR 0.89 MG/DL (0.55-1.02); FREE T4 1.45 NG/DL (0.76-1.46); GLOMERULAR FILTRATION RATE > 60.0 (>32); GLUCOSE, FASTING 89 MG/DL (83-110); MAGNESIUM LEVEL 1.9 MG/DL (1.8-2.4); SODIUM LEVEL 138 MEQ/L (136-145)
[2016-11-12] MEDS: PANTOPRAZOLE 40MG TAB (PROTONIX) PO SCH (09:00)
[2016-11-12] MEDS: amLODIPine 5 MG TAB PO SCH (09:00)
[2016-11-12] MEDS: SENOKOT S TAB PO SCH (09:00)
[2016-11-12] MEDS: ASPIRIN 81 MG ENTERIC TAB PO SCH (09:00)
[2016-11-12] MEDS: DONEPEZIL 5 MG TAB PO SCH (09:00)
[2016-11-12] MEDS: DRONABINOL 2.5 MG CAP (MARINOL) PO SCH ×3 (09:00→17:00)
[2016-11-12] MEDS: HEPARIN SOD (PORCINE) 5000 UNITS/ML VIAL SC SCH ×2 (09:01→22:04)
[2016-11-12] MEDS: LIOTHYRONINE 25 MCG TAB PO SCH (09:01)
[2016-11-12] MEDS: VERAPAMIL 180 MG SR TAB PO SCH (09:01)
--- NOTE | 2016-11-12 12:59 | IPNPDOC ---
Text Note Date of Service The patient was seen on 11/12/16. NOTE Subjective: Patient is an 81 year old female with a PMHx of Alzheimer's dementia, CKD3, CAD, HTN and Hypothyroidism who was brought to the ER by family because of nausea, vomiting and failure to take medications. She was found to have electrolyte abnormalities, rhabdomyolysis and elevated blood pressure. She was also noted to be severely hypothyroid. Patient was admitted to hospitalist service. Patient was seen and examined at the bedside. She is lying in bed, has no complaints today. Objective: Vitals (See below) General: Lying in bed, no acute distress, comfortable, Awake and alert HEENT: NC, AT CVS: RRR, +S1S2 Lungs: Fair air entry b/l, -w/r/r Abdomen: Soft, ND, NT, +BSx4 Extremities: +PPx4, - Edema, - Calf tenderness Assessment and plan: 1. Severe hypothyroidism - 2/2 non-compliance with medications - Has underlying dementia that has worsened her non-compliance to thyroid medications - TSH has continued to trend down - s/p IV levothyroxine - s/p stress dose of steroids - c/w Levothyroxine 112.5 PO 2. s/p Hyponatremia - likely 2/2 hypovolemia and hypothyroidism - s/p IV fluids 3. s/p Nausea and Vomiting - likely 2/2 constipation - c/w bowel regimen 4. s/p Hypertensive urgency - 2/2 non-compliance - c/w Amlodipine and Verapamil 5. Dementia 6. CAD - c/w ASA, Atorvastatin, 7. Elevated Cr - less likely CKD3 - Cr better than baseline 8. Suicidal ideation - likely 2/2 grieving - He discussed with psychiatry (Odell); normal grieving process - Poor appetite 9. Constipation - c/w bowel regimen 10. DVT prophylaxis - c/w Heparin Disposition: - Awaiting placement VS,Fishbone, I+O VS, Fishbone, I+O Laboratory Tests 11/12/16 05:28 Red Blood Count 3.25 L, Mean Corpuscular Volume 98.0 H, Mean Corpuscular Hemoglobin 33.5 H, Mean Corpuscular Hemoglobin Concent 34.2, Red Cell Distribution Width 13.4, Calcium Level 9.0 Vital Signs Date Time Temp Pulse Resp B/P (MAP) Pulse Ox O2 Delivery O2 Flow Rate FiO2 11/12/16 09:05 Room Air 11/12/16 09:01 70 150/70 11/12/16 06:00 97.6 18 96 I&O- Last 24 Hours up to 6 AM 11/12/16 06:00 Intake Total 480 ml Output Total 300 ml Balance 180 ml BRAD KRISHNA MD Nov 12, 2016 12:59
[2016-11-12 14:00] VITALS: BP 94/50
[2016-11-12 22:00] VITALS: BP 120/58
[2016-11-12] MEDS: ATORVASTATIN 20 MG TAB PO SCH (22:04)
[2016-11-13] MEDS: LEVOTHYROXINE 100MCG TABLET (0.1MG) PO SCH (05:57)
[2016-11-13 06:51] LABS: MEAN CORPUSCULAR HGB CONC 33.6 g/dl (32.0-36.5); MEAN CORPUSCULAR VOLUME 98.1 fl (80.0-96.0); RED CELL DISTRIBUTION WIDTH 12.9 % (11.5-14.5); WHITE BLOOD COUNT 5.2 K/mm3 (4.0-10.0)
[2016-11-13 07:10] LABS: CREATININE FOR GFR 0.98 MG/DL (0.55-1.02); FREE T4 1.62 NG/DL (0.76-1.46); POTASSIUM SERUM 4.2 MEQ/L (3.5-5.1)
[2016-11-13] MEDS: PANTOPRAZOLE 40MG TAB (PROTONIX) PO SCH (09:17)
[2016-11-13] MEDS: DONEPEZIL 5 MG TAB PO SCH (09:17)
[2016-11-13] MEDS: amLODIPine 5 MG TAB PO SCH (09:17)
[2016-11-13] MEDS: ASPIRIN 81 MG ENTERIC TAB PO SCH (09:17)
[2016-11-13] MEDS: SENOKOT S TAB PO SCH (09:18)
[2016-11-13] MEDS: VERAPAMIL 180 MG SR TAB PO SCH (09:18)
[2016-11-13] MEDS: HEPARIN SOD (PORCINE) 5000 UNITS/ML VIAL SC SCH ×2 (09:18→20:12)
[2016-11-13] MEDS: LIOTHYRONINE 25 MCG TAB PO SCH (09:18)
--- NOTE | 2016-11-13 10:45 | IPNPDOC ---
Text Note Date of Service The patient was seen on 11/13/16. NOTE Subjective: Patient is an 81 year old female with a PMHx of Alzheimer's dementia, CKD3, CAD, HTN and Hypothyroidism who was brought to the ER by family because of nausea, vomiting and failure to take medications. She was found to have electrolyte abnormalities, rhabdomyolysis and elevated blood pressure. She was also noted to be severely hypothyroid. Patient was admitted to hospitalist service. Patient was seen and examined at the bedside. She is lying in bed, has no complaints today. Objective: Vitals (See below) General: Lying in bed, no acute distress, comfortable, Awake and alert HEENT: NC, AT CVS: RRR, +S1S2 Lungs: Fair air entry b/l, -w/r/r Abdomen: Soft, ND, NT, +BSx4 Extremities: +PPx4, - Edema, - Calf tenderness Assessment and plan: 1. Severe hypothyroidism - 2/2 non-compliance with medications - Has underlying dementia that has worsened her non-compliance to thyroid medications - TSH has continued to trend down; will continue to follow - s/p IV levothyroxine - s/p stress dose of steroids - c/w Levothyroxine 112.5 PO 2. s/p Hyponatremia - likely 2/2 hypovolemia and hypothyroidism - s/p IV fluids 3. s/p Nausea and Vomiting - likely 2/2 constipation - c/w bowel regimen 4. s/p Hypertensive urgency - 2/2 non-compliance - c/w Amlodipine and Verapamil 5. Dementia 6. CAD - c/w ASA, Atorvastatin, 7. Elevated Cr - less likely CKD3 - Cr better than baseline 8. Suicidal ideation - likely 2/2 grieving - He discussed with psychiatry (Odell); normal grieving process - Poor appetite 9. Constipation - c/w bowel regimen 10. DVT prophylaxis - c/w Heparin Disposition: - Awaiting placement / guardianship Leif SHERMAN, I+O Leif SHERMAN I+O Laboratory Tests 11/13/16 05:55 Red Blood Count 3.28 L, Mean Corpuscular Volume 98.1 H, Mean Corpuscular Hemoglobin 33.0, Mean Corpuscular Hemoglobin Concent 33.6, Red Cell Distribution Width 12.9, Calcium Level 9.0 Vital Signs Date Time Temp Pulse Resp B/P (MAP) Pulse Ox O2 Delivery O2 Flow Rate FiO2 11/13/16 09:18 87 147/78 11/12/16 22:00 98.6 18 95 11/12/16 20:15 Room Air I&O- Last 24 Hours up to 6 AM 11/13/16 06:00 Intake Total 630 ml Balance 630 ml BRAD KRISHNA MD Nov 13, 2016 10:45
[2016-11-13] MEDS: DRONABINOL 2.5 MG CAP (MARINOL) PO SCH ×3 (10:55→17:10)
[2016-11-13 14:00] VITALS: BP 115/57
[2016-11-13] MEDS: ATORVASTATIN 20 MG TAB PO SCH (20:12)
[2016-11-13 22:00] VITALS: BP 112/53
[2016-11-14 05:35] VITALS: BP 140/78
[2016-11-14] MEDS: LEVOTHYROXINE 100MCG TABLET (0.1MG) PO SCH (05:42)
[2016-11-14 05:57] LABS: MEAN CORPUSCULAR HEMOGLOBIN 34.1 pg (27.0-33.0); MEAN CORPUSCULAR HGB CONC 34.4 g/dl (32.0-36.5); RED CELL DISTRIBUTION WIDTH 13.2 % (11.5-14.5); WHITE BLOOD COUNT 5.4 K/mm3 (4.0-10.0)
[2016-11-14 06:22] LABS: CALCIUM LEVEL 9.3 MG/DL (8.8-10.2); CREATININE FOR GFR 0.99 MG/DL (0.55-1.02); GLOMERULAR FILTRATION RATE 57.3 (>32); POTASSIUM SERUM 4.4 MEQ/L (3.5-5.1)
[2016-11-14] MEDS: PANTOPRAZOLE 40MG TAB (PROTONIX) PO SCH (09:34)
[2016-11-14] MEDS: DRONABINOL 2.5 MG CAP (MARINOL) PO SCH ×3 (09:34→17:15)
[2016-11-14] MEDS: SENOKOT S TAB PO SCH (09:35)
[2016-11-14] MEDS: VERAPAMIL 180 MG SR TAB PO SCH (09:35)
[2016-11-14] MEDS: LIOTHYRONINE 25 MCG TAB PO SCH (09:35)
[2016-11-14] MEDS: DONEPEZIL 5 MG TAB PO SCH (09:35)
[2016-11-14] MEDS: amLODIPine 5 MG TAB PO SCH (09:35)
[2016-11-14] MEDS: ASPIRIN 81 MG ENTERIC TAB PO SCH (09:36)
[2016-11-14] MEDS: HEPARIN SOD (PORCINE) 5000 UNITS/ML VIAL SC SCH ×2 (09:36→22:02)
--- NOTE | 2016-11-14 11:27 | IPNPDOC ---
Text Note Date of Service The patient was seen on 11/14/16. NOTE Subjective: Patient is an 81 year old female with a PMHx of Alzheimer's dementia, CKD3, CAD, HTN and Hypothyroidism who was brought to the ER by family because of nausea, vomiting and failure to take medications. She was found to have electrolyte abnormalities, rhabdomyolysis and elevated blood pressure. She was also noted to be severely hypothyroid. Patient was admitted to hospitalist service. Patient was seen and examined at the bedside. She is sitting up in the chair. Is still sleepy and has a poor appetite. Objective: Vitals (See below) General: Lying in bed, no acute distress, comfortable, Awake and alert HEENT: NC, AT CVS: RRR, +S1S2 Lungs: Fair air entry b/l, -w/r/r Abdomen: Soft, ND, NT, +BSx4 Extremities: +PPx4, - Edema, - Calf tenderness Assessment and plan: 1. Severe hypothyroidism - 2/2 non-compliance with medications - Has underlying dementia that has worsened her non-compliance to thyroid medications - TSH has continued to trend down; today's level pending; will continue to trend tomorrow - s/p IV levothyroxine - s/p stress dose of steroids - c/w Levothyroxine 112.5 PO 2. s/p Hyponatremia - likely 2/2 hypovolemia and hypothyroidism 3. s/p Nausea and Vomiting - likely 2/2 constipation 4. Hypertension - c/w Amlodipine and Verapamil 5. Dementia 6. CAD - c/w ASA, Atorvastatin, 7. s/p Elevated Cr 8. Depression with suicidal ideation - likely 2/2 grieving and hypothyroidism - He discussed with psychiatry (Odell); normal grieving process - Poor appetite; encouragement for increased oral intake 9. Constipation - c/w bowel regimen 10. DVT prophylaxis - c/w Heparin Disposition: - Establishing guardianship VS,Leif, I+O VS, Leif, I+O Laboratory Tests 11/14/16 05:25 Red Blood Count 3.20 L, Mean Corpuscular Volume 99.0 H, Mean Corpuscular Hemoglobin 34.1 H, Mean Corpuscular Hemoglobin Concent 34.4, Red Cell Distribution Width 13.2, Calcium Level 9.3 Vital Signs Date Time Temp Pulse Resp B/P (MAP) Pulse Ox O2 Delivery O2 Flow Rate FiO2 11/14/16 09:35 72 149/68 11/14/16 05:35 98.5 16 97 Room Air I&O- Last 24 Hours up to 6 AM 11/14/16 05:59 Intake Total 290 ml Output Total 700 ml Balance -410 ml BRAD KRISHNA MD Nov 14, 2016 11:26
[2016-11-14 14:00] VITALS: BP 120/58
[2016-11-14 22:00] VITALS: BP 111/55
[2016-11-14] MEDS: ATORVASTATIN 20 MG TAB PO SCH (22:02)
[2016-11-15] MEDS: LEVOTHYROXINE 100MCG TABLET (0.1MG) PO SCH (05:37)
[2016-11-15 06:00] VITALS: BP 113/59
[2016-11-15 06:19] LABS: MEAN CORPUSCULAR HEMOGLOBIN 33.9 pg (27.0-33.0); MEAN CORPUSCULAR HGB CONC 34.1 g/dl (32.0-36.5); MEAN CORPUSCULAR VOLUME 99.2 fl (80.0-96.0); RED CELL DISTRIBUTION WIDTH 13.2 % (11.5-14.5); WHITE BLOOD COUNT 5.7 K/mm3 (4.0-10.0)
[2016-11-15 06:59] LABS: ANION GAP 8 MEQ/L (8-16); BLOOD UREA NITROGEN 27 MG/DL (7-18); CALCIUM LEVEL 9.2 MG/DL (8.8-10.2); CARBON DIOXIDE LEVEL 26 MEQ/L (21-32); CHLORIDE LEVEL 106 MEQ/L (98-107); CREATININE FOR GFR 0.94 MG/DL (0.55-1.02); GLOMERULAR FILTRATION RATE > 60.0 (>32); GLUCOSE, FASTING 100 MG/DL (83-110); MAGNESIUM LEVEL 1.8 MG/DL (1.8-2.4); SODIUM LEVEL 140 MEQ/L (136-145)
[2016-11-15] MEDS: HEPARIN SOD (PORCINE) 5000 UNITS/ML VIAL SC SCH ×2 (08:38→21:52)
[2016-11-15] MEDS: LIOTHYRONINE 25 MCG TAB PO SCH (08:39)
[2016-11-15] MEDS: VERAPAMIL 180 MG SR TAB PO SCH (08:41)
[2016-11-15] MEDS: DONEPEZIL 5 MG TAB PO SCH (08:41)
[2016-11-15] MEDS: PANTOPRAZOLE 40MG TAB (PROTONIX) PO SCH (08:42)
[2016-11-15] MEDS: amLODIPine 5 MG TAB PO SCH (08:42)
[2016-11-15] MEDS: DRONABINOL 2.5 MG CAP (MARINOL) PO SCH ×3 (08:42→18:35)
[2016-11-15] MEDS: ASPIRIN 81 MG ENTERIC TAB PO SCH (08:43)
[2016-11-15] MEDS: SENOKOT S TAB PO SCH (08:43)
--- NOTE | 2016-11-15 11:38 | IPNPDOC ---
Text Note Date of Service The patient was seen on 11/15/16. NOTE Subjective: Patient is an 81 year old female with a PMHx of Alzheimer's dementia, CKD3, CAD, HTN and Hypothyroidism who was brought to the ER by family because of nausea, vomiting and failure to take medications. She was found to have electrolyte abnormalities, rhabdomyolysis and elevated blood pressure. She was also noted to be severely hypothyroid. Patient was admitted to hospitalist service. Patient was seen and examined at the bedside. She is lying in bed and sleepy. Objective: Vitals (See below) General: Lying in bed, no acute distress, comfortable, Sleepy, but answers questions HEENT: NC, AT CVS: RRR, +S1S2 Lungs: Fair air entry b/l, -w/r/r Abdomen: Soft, ND, NT, +BSx4 Extremities: +PPx4, - Edema, - Calf tenderness Assessment and plan: 1. Severe hypothyroidism - 2/2 non-compliance with medications - Has underlying dementia that has worsened her non-compliance to thyroid medications - TSH has normalized - s/p IV levothyroxine and stress dose of steroids - c/w Levothyroxine 112.5 PO - Will continue to follow TSH and Free T4 / Total T3 2. s/p Hyponatremia - likely 2/2 hypovolemia and hypothyroidism 3. s/p Nausea and Vomiting - likely 2/2 constipation 4. Hypertension - c/w Amlodipine and Verapamil 5. Dementia 6. CAD - c/w ASA, Atorvastatin, 7. s/p Elevated Cr 8. Depression with suicidal ideation - likely 2/2 grieving and hypothyroidism - He discussed with psychiatry (Odell); normal grieving process - Poor appetite; encouragement for increased oral intake 9. Constipation - c/w bowel regimen 10. DVT prophylaxis - c/w Heparin Disposition: - Establishing guardianship; process in progress VS,Leif, I+O VS, Leif, I+O Laboratory Tests 11/15/16 05:30 Red Blood Count 3.09 L, Mean Corpuscular Volume 99.2 H, Mean Corpuscular Hemoglobin 33.9 H, Mean Corpuscular Hemoglobin Concent 34.1, Red Cell Distribution Width 13.2, Calcium Level 9.2 Vital Signs Date Time Temp Pulse Resp B/P (MAP) Pulse Ox O2 Delivery O2 Flow Rate FiO2 11/15/16 08:42 74 131/59 11/15/16 06:00 98.3 20 96 Room Air I&O- Last 24 Hours up to 6 AM 11/15/16 05:59 Intake Total 810 ml Output Total 300 ml Balance 510 ml BRAD KRISHNA MD Nov 15, 2016 11:38
[2016-11-15 14:00] VITALS: BP 107/53
[2016-11-15] MEDS: ATORVASTATIN 20 MG TAB PO SCH (21:52)
[2016-11-15 22:00] VITALS: BP 105/51
[2016-11-16] MEDS: LEVOTHYROXINE 100MCG TABLET (0.1MG) PO SCH (05:31)
[2016-11-16 06:00] VITALS: BP 139/65
[2016-11-16 06:23] LABS: FREE T4 1.6 NG/DL (0.76-1.46)
[2016-11-16] MEDS: DRONABINOL 2.5 MG CAP (MARINOL) PO SCH ×3 (08:23→17:07)
[2016-11-16] MEDS: HEPARIN SOD (PORCINE) 5000 UNITS/ML VIAL SC SCH ×2 (08:23→22:17)
[2016-11-16] MEDS: LIOTHYRONINE 25 MCG TAB PO SCH (08:23)
[2016-11-16] MEDS: PANTOPRAZOLE 40MG TAB (PROTONIX) PO SCH (08:23)
[2016-11-16] MEDS: VERAPAMIL 180 MG SR TAB PO SCH (08:24)
[2016-11-16] MEDS: SENOKOT S TAB PO SCH (08:24)
[2016-11-16] MEDS: DONEPEZIL 5 MG TAB PO SCH (08:24)
[2016-11-16] MEDS: ASPIRIN 81 MG ENTERIC TAB PO SCH (08:24)
[2016-11-16] MEDS: amLODIPine 5 MG TAB PO SCH (08:24)
--- NOTE | 2016-11-16 10:42 | IPNPDOC ---
Text Note Date of Service The patient was seen on 11/16/16. NOTE Subjective: Patient is an 81 year old female with a PMHx of Alzheimer's dementia, CKD3, CAD, HTN and Hypothyroidism who was brought to the ER by family because of nausea, vomiting and failure to take medications. She was found to have electrolyte abnormalities, rhabdomyolysis and elevated blood pressure. She was also noted to be severely hypothyroid. Patient was admitted to hospitalist service. Patient was seen and examined at the bedside. She is still with a flat affect, poor oral intake and sleeping most of the days. Objective: Vitals (See below) General: Lying in bed, no acute distress, comfortable, Sleepy, but answers questions HEENT: NC, AT CVS: RRR, +S1S2 Lungs: Fair air entry b/l, -w/r/r Abdomen: Soft, ND, NT, +BSx4 Extremities: +PPx4, - Edema, - Calf tenderness Assessment and plan: 1. s/p Severe hypothyroidism - 2/2 non-compliance with medications - Has underlying dementia that has worsened her non-compliance to thyroid medications - TSH has normalized - s/p IV levothyroxine and stress dose of steroids - c/w Levothyroxine 112.5 PO - Will continue to follow TSH and Free T4 / Total T3 2. s/p Hyponatremia - likely 2/2 hypovolemia and hypothyroidism 3. s/p Nausea and Vomiting - likely 2/2 constipation 4. s/p Elevated Cr 5. Depression with suicidal ideation - likely 2/2 grieving and hypothyroidism - DrBurke He discussed with psychiatry (Odell); normal grieving process - Poor appetite; encouragement for increased oral intake 6. Hypertension - c/w Amlodipine and Verapamil 7. Dementia 8. CAD - c/w ASA and Atorvastatin 9. Macrocytic anemia - Hg stable 10. Constipation - c/w bowel regimen 11. DVT prophylaxis - c/w Heparin Disposition: - Establishing guardianship; process in progress VS,Leif, I+O VS, Leif, I+O Vital Signs Date Time Temp Pulse Resp B/P (MAP) Pulse Ox O2 Delivery O2 Flow Rate FiO2 11/16/16 08:24 78 129/58 11/16/16 06:00 97.5 17 97 Room Air I&O- Last 24 Hours up to 6 AM 11/16/16 06:00 Intake Total 1200 ml Output Total 300 ml Balance 900 ml BRAD KRISHNA MD Nov 16, 2016 10:42
[2016-11-16 14:00] VITALS: BP 133/62
[2016-11-16 22:00] VITALS: BP 119/58
[2016-11-16] MEDS: ATORVASTATIN 20 MG TAB PO SCH (22:17)
[2016-11-17] MEDS: LEVOTHYROXINE 100MCG TABLET (0.1MG) PO SCH (05:43)
[2016-11-17 06:00] VITALS: BP 121/58
[2016-11-17 06:36] LABS: BASO % 0.7 % (0.0-1.0); EOS # 0.2 K/mm3 (0.0-0.50); EOS % 4.5 % (0.0-3.0); LARGE UNSTAINED CELL # 0.2 K/mm3 (0.0-0.4); LARGE UNSTAINED CELL % 3.2 % (0.0-4.0); LYMPH # 1.1 K/mm3 (1.5-4.5); LYMPH % 18.3 % (24.0-44.0); MEAN CORPUSCULAR HEMOGLOBIN 33.8 pg (27.0-33.0); MEAN CORPUSCULAR HGB CONC 33.6 g/dl (32.0-36.5); MEAN CORPUSCULAR VOLUME 100.6 fl (80.0-96.0); MONO # 0.5 K/mm3 (0.0-0.8); MONO % 9.4 % (0.0-5.0); NEUTROPHILS # 3.2 K/mm3 (1.8-7.7); NEUTROPHILS % 63.9 % (36.0-66.0); PLATELET COUNT, AUTOMATED 329 k/mm3 (150-450); RED CELL DISTRIBUTION WIDTH 13.3 % (11.5-14.5)
[2016-11-17 07:56] LABS: ALBUMIN 3.1 GM/DL (3.2-5.2); ALBUMIN/GLOBULIN RATIO 0.78 (1.00-1.93); ALKALINE PHOSPHATASE 101 U/L (45-117); ALT/SGPT 18 U/L (12-78); ANION GAP 6 MEQ/L (8-16); AST/SGOT 12 U/L (15-37); BILIRUBIN,TOTAL 0.4 MG/DL (0.2-1.0); BLOOD UREA NITROGEN 24 MG/DL (7-18); CALCIUM LEVEL 9.1 MG/DL (8.8-10.2); CARBON DIOXIDE LEVEL 27 MEQ/L (21-32); CHLORIDE LEVEL 104 MEQ/L (98-107); CREATININE FOR GFR 0.92 MG/DL (0.55-1.02); FREE T4 1.82 NG/DL (0.76-1.46); GLOMERULAR FILTRATION RATE > 60.0 (>32); GLUCOSE, FASTING 90 MG/DL (83-110); SODIUM LEVEL 137 MEQ/L (136-145); TOTAL PROTEIN 7.1 GM/DL (6.4-8.2)
[2016-11-17] MEDS: LIOTHYRONINE 25 MCG TAB PO SCH (09:56)
[2016-11-17] MEDS: SENOKOT S TAB PO SCH (09:57)
[2016-11-17] MEDS: DONEPEZIL 5 MG TAB PO SCH (09:57)
[2016-11-17] MEDS: DRONABINOL 2.5 MG CAP (MARINOL) PO SCH ×3 (09:57→18:08)
[2016-11-17] MEDS: PANTOPRAZOLE 40MG TAB (PROTONIX) PO SCH (09:57)
[2016-11-17] MEDS: ASPIRIN 81 MG ENTERIC TAB PO SCH (09:57)
[2016-11-17] MEDS: HEPARIN SOD (PORCINE) 5000 UNITS/ML VIAL SC SCH ×2 (09:58→22:03)
[2016-11-17] MEDS: amLODIPine 5 MG TAB PO SCH (10:03)
[2016-11-17] MEDS: VERAPAMIL 180 MG SR TAB PO SCH (10:04)
--- NOTE | 2016-11-17 13:34 | IPNPDOC ---
Text Note Date of Service The patient was seen on 11/17/16. NOTE Subjective: Denies any complaints. Objective: Vitals: (see below) General: No acute distress, laying comfortably in bed. HEENT: Moist mucous membranes. Neck: No JVD or lymphadenopathy Cardiac: RRR, No murmurs Pulm: Diminished breath sounds at the bases b/l. No wheezing, rhonchi Abd: NT/ND No rebound/guarding/rigidity. + BS Ext: No edema or cyanosis Neuro: Strength 5/5 BUE and BLE. CN 2-12 intact. F to N intact Alert and Oriented to person and hospital. Labs (see below) Images: MRI brain IMPRESSION: 1. There is cerebral and cerebellar atrophy with extensive deep cerebral white matter ischemic change. 2. Possible mild right mastoiditis, correlate clinically. CXR 10/26/16 IMPRESSION: Chronic changes and other findings as described above. Assessment/Plan 1. Severe hypothyroidism - patient has baseline dementia and her had not been taking her medications. TSH improved.It is reported that her recently from severe hypothyroidism, and she is currently grieving. Patient is status post IV Synthroid is now back to by mouth. Stress test steroids d/c. Thyroid functions continue to improving. Liothyronine. 2. Hyponatremia- likely multifactorial, secondary to hypovolemia and hypothyroidism. Status post IV fluids. Continue thyroid replacement. 3. Nausea/vomiting- resolved. On bowel regimen for constipation. 4. Hypertensive urgency- secondary to medication noncompliance. Blood pressure medications restarted. 5. Dementia- will need 24-hour care. 6. History of CAD- continue current meds 7. CK D stage III- stable. 8. Suicidal ideations- He had spoken to Odell, who recommends monitoring as patient is going through normal grieving process. 9. Poor appetite- secondary to grief. Calorie count, appetite stimulant. 10. Constipation - on bowel regimen. DVT prophy: Heparin SQ. Encourage PT/OT participation. Daughter states she is unable to take care of pt. Case management looking into custodial care facilities. Case management looking for guardianship. VS,Fishbone, I+O VS, Fishbone, I+O Laboratory Tests 11/17/16 06:11 Red Blood Count 3.28 L, Mean Corpuscular Volume 100.6 H, Mean Corpuscular Hemoglobin 33.8 H, Mean Corpuscular Hemoglobin Concent 33.6, Red Cell Distribution Width 13.3, Neutrophils (%) (Auto) 63.9, Lymphocytes (%) (Auto) 18.3 L, Monocytes (%) (Auto) 9.4 H, Eosinophils (%) (Auto) 4.5 H, Basophils (%) (Auto) 0.7, Neutrophils # (Auto) 3.2, Lymphocytes # (Auto) 1.1 L, Monocytes # ( Auto) 0.5, Eosinophils # (Auto) 0.2, Basophils # (Auto) 0.0, Calcium Level 9.1, Aspartate Amino Transf (AST/SGOT) 12 L, Alanine Aminotransferase (ALT/SGPT) 18, Alkaline Phosphatase 101, Total Bilirubin 0.4, Total Protein 7.1, Albumin 3.1 L Vital Signs Date Time Temp Pulse Resp B/P (MAP) Pulse Ox O2 Delivery O2 Flow Rate FiO2 11/17/16 10:03 92 119/60 11/17/16 06:00 97.2 14 99 Room Air I&O- Last 24 Hours up to 6 AM 11/17/16 06:00 Intake Total 475 ml Output Total 300 ml Balance 175 ml LUIS GLASER MD Nov 17, 2016 13:34
[2016-11-17] MEDS: ATORVASTATIN 20 MG TAB PO SCH (22:03)
[2016-11-18 06:00] VITALS: BP 125/61
[2016-11-18] MEDS: LEVOTHYROXINE 100MCG TABLET (0.1MG) PO SCH (06:03)
[2016-11-18 06:11] LABS: BASO % 0.6 % (0.0-1.0); EOS # 0.2 K/mm3 (0.0-0.50); EOS % 4.7 % (0.0-3.0); LARGE UNSTAINED CELL # 0.2 K/mm3 (0.0-0.4); LARGE UNSTAINED CELL % 3.6 % (0.0-4.0); LYMPH # 1.4 K/mm3 (1.5-4.5); LYMPH % 23.6 % (24.0-44.0); MEAN CORPUSCULAR HEMOGLOBIN 33.5 pg (27.0-33.0); MEAN CORPUSCULAR HGB CONC 33.5 g/dl (32.0-36.5); MEAN CORPUSCULAR VOLUME 100.1 fl (80.0-96.0); MONO # 0.5 K/mm3 (0.0-0.8); MONO % 9.2 % (0.0-5.0); NEUTROPHILS # 2.9 K/mm3 (1.8-7.7); NEUTROPHILS % 58.2 % (36.0-66.0); PLATELET COUNT, AUTOMATED 339 k/mm3 (150-450); RED CELL DISTRIBUTION WIDTH 13.2 % (11.5-14.5); WHITE BLOOD COUNT 4.9 K/mm3 (4.0-10.0)
[2016-11-18 06:35] LABS: ALBUMIN 3.1 GM/DL (3.2-5.2); ALBUMIN/GLOBULIN RATIO 0.79 (1.00-1.93); BILIRUBIN,TOTAL 0.4 MG/DL (0.2-1.0); CREATININE FOR GFR 1.04 MG/DL (0.55-1.02); FREE T4 1.78 NG/DL (0.76-1.46); GLOMERULAR FILTRATION RATE 54.1 (>32); MAGNESIUM LEVEL 1.9 MG/DL (1.8-2.4); POTASSIUM SERUM 3.9 MEQ/L (3.5-5.1)
[2016-11-18] MEDS: DRONABINOL 2.5 MG CAP (MARINOL) PO SCH ×3 (08:11→17:52)
[2016-11-18] MEDS: ASPIRIN 81 MG ENTERIC TAB PO SCH (08:11)
[2016-11-18] MEDS: LIOTHYRONINE 25 MCG TAB PO SCH (08:11)
[2016-11-18] MEDS: VERAPAMIL 180 MG SR TAB PO SCH (08:11)
[2016-11-18] MEDS: SENOKOT S TAB PO SCH (08:12)
[2016-11-18] MEDS: DONEPEZIL 5 MG TAB PO SCH (08:12)
[2016-11-18] MEDS: PANTOPRAZOLE 40MG TAB (PROTONIX) PO SCH (08:12)
[2016-11-18] MEDS: amLODIPine 5 MG TAB PO SCH (08:12)
[2016-11-18] MEDS: HEPARIN SOD (PORCINE) 5000 UNITS/ML VIAL SC SCH ×2 (08:13→20:24)
[2016-11-18] MEDS: ATORVASTATIN 20 MG TAB PO SCH (20:24)
[2016-11-19] MEDS: LEVOTHYROXINE 100MCG TABLET (0.1MG) PO SCH (05:56)
[2016-11-19 06:00] VITALS: BP 131/61
[2016-11-19 07:28] LABS: BASO % 0.9 % (0.0-1.0); EOS # 0.2 K/mm3 (0.0-0.50); EOS % 3.8 % (0.0-3.0); LARGE UNSTAINED CELL # 0.2 K/mm3 (0.0-0.4); LARGE UNSTAINED CELL % 3.5 % (0.0-4.0); LYMPH # 1.1 K/mm3 (1.5-4.5); LYMPH % 18.2 % (24.0-44.0); MEAN CORPUSCULAR HEMOGLOBIN 33.1 pg (27.0-33.0); MEAN CORPUSCULAR HGB CONC 33.3 g/dl (32.0-36.5); MEAN CORPUSCULAR VOLUME 99.3 fl (80.0-96.0); MONO # 0.6 K/mm3 (0.0-0.8); MONO % 8.7 % (0.0-5.0); NEUTROPHILS # 4.1 K/mm3 (1.8-7.7); NEUTROPHILS % 64.9 % (36.0-66.0); PLATELET COUNT, AUTOMATED 377 k/mm3 (150-450); RED CELL DISTRIBUTION WIDTH 12.8 % (11.5-14.5); WHITE BLOOD COUNT 6.3 K/mm3 (4.0-10.0)
[2016-11-19 08:10] LABS: ALBUMIN 3.2 GM/DL (3.2-5.2); ALBUMIN/GLOBULIN RATIO 0.89 (1.00-1.93); BILIRUBIN,TOTAL 0.3 MG/DL (0.2-1.0); FREE T4 1.98 NG/DL (0.76-1.46); GLOMERULAR FILTRATION RATE 56.6 (>32); POTASSIUM SERUM 4.2 MEQ/L (3.5-5.1); TOTAL PROTEIN 6.8 GM/DL (6.4-8.2)
[2016-11-19] MEDS: HEPARIN SOD (PORCINE) 5000 UNITS/ML VIAL SC SCH ×2 (09:58→20:25)
[2016-11-19] MEDS: LIOTHYRONINE 25 MCG TAB PO SCH (09:59)
[2016-11-19] MEDS: amLODIPine 5 MG TAB PO SCH (10:01)
[2016-11-19] MEDS: ASPIRIN 81 MG ENTERIC TAB PO SCH (10:01)
[2016-11-19] MEDS: VERAPAMIL 180 MG SR TAB PO SCH (10:01)
[2016-11-19] MEDS: PANTOPRAZOLE 40MG TAB (PROTONIX) PO SCH (10:01)
[2016-11-19] MEDS: DONEPEZIL 5 MG TAB PO SCH (10:02)
[2016-11-19] MEDS: DRONABINOL 2.5 MG CAP (MARINOL) PO SCH ×3 (10:02→17:49)
[2016-11-19] MEDS: SENOKOT S TAB PO SCH (10:02)
[2016-11-19 14:00] VITALS: BP 113/54
[2016-11-19] MEDS: ATORVASTATIN 20 MG TAB PO SCH (20:25)
[2016-11-20 06:00] VITALS: BP 144/65
[2016-11-20] MEDS: LEVOTHYROXINE 100MCG TABLET (0.1MG) PO SCH (06:00)
[2016-11-20 06:56] LABS: BASO % 0.8 % (0.0-1.0); EOS # 0.2 K/mm3 (0.0-0.50); EOS % 3.7 % (0.0-3.0); LARGE UNSTAINED CELL # 0.2 K/mm3 (0.0-0.4); LARGE UNSTAINED CELL % 2.8 % (0.0-4.0); LYMPH # 1.3 K/mm3 (1.5-4.5); LYMPH % 15.7 % (24.0-44.0); MEAN CORPUSCULAR HGB CONC 33.1 g/dl (32.0-36.5); MEAN CORPUSCULAR VOLUME 99.6 fl (80.0-96.0); MONO # 0.6 K/mm3 (0.0-0.8); MONO % 8.5 % (0.0-5.0); NEUTROPHILS # 4.7 K/mm3 (1.8-7.7); NEUTROPHILS % 68.5 % (36.0-66.0); PLATELET COUNT, AUTOMATED 384 k/mm3 (150-450); WHITE BLOOD COUNT 6.8 K/mm3 (4.0-10.0)
[2016-11-20 07:23] LABS: ALBUMIN 3.2 GM/DL (3.2-5.2); ALBUMIN/GLOBULIN RATIO 0.82 (1.00-1.93); BILIRUBIN,TOTAL 0.3 MG/DL (0.2-1.0); CALCIUM LEVEL 9.1 MG/DL (8.8-10.2); CREATININE FOR GFR 0.98 MG/DL (0.55-1.02); FREE T4 1.77 NG/DL (0.76-1.46); POTASSIUM SERUM 3.9 MEQ/L (3.5-5.1); TOTAL PROTEIN 7.1 GM/DL (6.4-8.2)
[2016-11-20] MEDS: SENOKOT S TAB PO SCH (09:27)
[2016-11-20] MEDS: DRONABINOL 2.5 MG CAP (MARINOL) PO SCH ×3 (09:27→17:53)
[2016-11-20] MEDS: HEPARIN SOD (PORCINE) 5000 UNITS/ML VIAL SC SCH ×2 (09:27→20:37)
[2016-11-20] MEDS: amLODIPine 5 MG TAB PO SCH (09:28)
[2016-11-20] MEDS: DONEPEZIL 5 MG TAB PO SCH (09:28)
[2016-11-20] MEDS: LIOTHYRONINE 25 MCG TAB PO SCH (09:29)
[2016-11-20] MEDS: ASPIRIN 81 MG ENTERIC TAB PO SCH (09:29)
[2016-11-20] MEDS: PANTOPRAZOLE 40MG TAB (PROTONIX) PO SCH (09:29)
[2016-11-20] MEDS: VERAPAMIL 180 MG SR TAB PO SCH (09:29)
[2016-11-20] MEDS: ATORVASTATIN 20 MG TAB PO SCH (20:37)
[2016-11-21] MEDS: LEVOTHYROXINE 100MCG TABLET (0.1MG) PO SCH (05:58)
[2016-11-21 06:00] VITALS: BP 143/67
[2016-11-21 06:03] LABS: BASO % 0.6 % (0.0-1.0); EOS # 0.2 K/mm3 (0.0-0.50); LARGE UNSTAINED CELL # 0.2 K/mm3 (0.0-0.4); LARGE UNSTAINED CELL % 2.7 % (0.0-4.0); LYMPH # 1.6 K/mm3 (1.5-4.5); LYMPH % 17.5 % (24.0-44.0); MEAN CORPUSCULAR HEMOGLOBIN 33.3 pg (27.0-33.0); MEAN CORPUSCULAR HGB CONC 33.4 g/dl (32.0-36.5); MEAN CORPUSCULAR VOLUME 99.6 fl (80.0-96.0); MONO # 0.7 K/mm3 (0.0-0.8); MONO % 8.2 % (0.0-5.0); NEUTROPHILS # 5.4 K/mm3 (1.8-7.7); PLATELET COUNT, AUTOMATED 380 k/mm3 (150-450); RED CELL DISTRIBUTION WIDTH 13.1 % (11.5-14.5); WHITE BLOOD COUNT 7.9 K/mm3 (4.0-10.0)
[2016-11-21 06:19] LABS: ALBUMIN 3.3 GM/DL (3.2-5.2); ALBUMIN/GLOBULIN RATIO 0.87 (1.00-1.93); ALKALINE PHOSPHATASE 112 U/L (45-117); ALT/SGPT 22 U/L (12-78); ANION GAP 9 MEQ/L (8-16); AST/SGOT 13 U/L (15-37); BILIRUBIN,TOTAL 0.3 MG/DL (0.2-1.0); BLOOD UREA NITROGEN 24 MG/DL (7-18); CALCIUM LEVEL 9.5 MG/DL (8.8-10.2); CARBON DIOXIDE LEVEL 26 MEQ/L (21-32); CHLORIDE LEVEL 104 MEQ/L (98-107); GLOMERULAR FILTRATION RATE > 60.0 (>32); GLUCOSE, FASTING 94 MG/DL (83-110); POTASSIUM SERUM 3.8 MEQ/L (3.5-5.1); SODIUM LEVEL 139 MEQ/L (136-145); TOTAL PROTEIN 7.1 GM/DL (6.4-8.2)
[2016-11-21] MEDS: DRONABINOL 2.5 MG CAP (MARINOL) PO SCH ×3 (08:38→17:20)
[2016-11-21 09:00] VITALS: BP 143/65
[2016-11-21] MEDS: VERAPAMIL 180 MG SR TAB PO SCH (09:21)
[2016-11-21] MEDS: HEPARIN SOD (PORCINE) 5000 UNITS/ML VIAL SC SCH ×2 (09:21→20:34)
[2016-11-21] MEDS: amLODIPine 5 MG TAB PO SCH (09:22)
[2016-11-21] MEDS: DONEPEZIL 5 MG TAB PO SCH (09:23)
[2016-11-21] MEDS: LIOTHYRONINE 25 MCG TAB PO SCH (09:23)
[2016-11-21] MEDS: SENOKOT S TAB PO SCH (09:23)
[2016-11-21] MEDS: ASPIRIN 81 MG ENTERIC TAB PO SCH (09:23)
[2016-11-21] MEDS: PANTOPRAZOLE 40MG TAB (PROTONIX) PO SCH (09:24)
[2016-11-21] MEDS: ATORVASTATIN 20 MG TAB PO SCH (20:34)
[2016-11-22] MEDS: LEVOTHYROXINE 100MCG TABLET (0.1MG) PO SCH (05:33)
[2016-11-22 06:00] VITALS: BP 144/66
[2016-11-22 06:01] LABS: BASO % 0.6 % (0.0-1.0); EOS # 0.2 K/mm3 (0.0-0.50); EOS % 3.1 % (0.0-3.0); LARGE UNSTAINED CELL # 0.1 K/mm3 (0.0-0.4); LARGE UNSTAINED CELL % 2.1 % (0.0-4.0); LYMPH # 1.4 K/mm3 (1.5-4.5); LYMPH % 19.6 % (24.0-44.0); MEAN CORPUSCULAR HEMOGLOBIN 33.2 pg (27.0-33.0); MEAN CORPUSCULAR HGB CONC 33.2 g/dl (32.0-36.5); MONO # 0.7 K/mm3 (0.0-0.8); MONO % 11.2 % (0.0-5.0); NEUTROPHILS # 4.1 K/mm3 (1.8-7.7); NEUTROPHILS % 63.5 % (36.0-66.0); PLATELET COUNT, AUTOMATED 389 k/mm3 (150-450); RED CELL DISTRIBUTION WIDTH 13.1 % (11.5-14.5); WHITE BLOOD COUNT 6.4 K/mm3 (4.0-10.0)
[2016-11-22 06:24] LABS: ALBUMIN 3.2 GM/DL (3.2-5.2); ALBUMIN/GLOBULIN RATIO 0.8 (1.00-1.93); BILIRUBIN,TOTAL 0.3 MG/DL (0.2-1.0); CALCIUM LEVEL 9.2 MG/DL (8.8-10.2); CREATININE FOR GFR 1.04 MG/DL (0.55-1.02); GLOMERULAR FILTRATION RATE 54.1 (>32); POTASSIUM SERUM 4.1 MEQ/L (3.5-5.1); TOTAL PROTEIN 7.2 GM/DL (6.4-8.2)
[2016-11-22] MEDS: DRONABINOL 2.5 MG CAP (MARINOL) PO SCH ×3 (09:15→17:55)
[2016-11-22] MEDS: VERAPAMIL 180 MG SR TAB PO SCH (09:20)
[2016-11-22] MEDS: HEPARIN SOD (PORCINE) 5000 UNITS/ML VIAL SC SCH ×2 (09:20→21:28)
[2016-11-22] MEDS: LIOTHYRONINE 25 MCG TAB PO SCH (09:20)
[2016-11-22] MEDS: ASPIRIN 81 MG ENTERIC TAB PO SCH (09:21)
[2016-11-22] MEDS: amLODIPine 5 MG TAB PO SCH (09:21)
[2016-11-22] MEDS: DONEPEZIL 5 MG TAB PO SCH (09:21)
[2016-11-22] MEDS: PANTOPRAZOLE 40MG TAB (PROTONIX) PO SCH (09:21)
[2016-11-22] MEDS: SENOKOT S TAB PO SCH (09:21)
[2016-11-22] MEDS: ATORVASTATIN 20 MG TAB PO SCH (21:28)
[2016-11-23] MEDS: LEVOTHYROXINE 100MCG TABLET (0.1MG) PO SCH (05:41)
[2016-11-23 06:00] VITALS: BP 145/66
[2016-11-23 06:16] LABS: BASO # 0.1 K/mm3 (0.0-0.2); BASO % 0.9 % (0.0-1.0); EOS # 0.2 K/mm3 (0.0-0.50); EOS % 2.9 % (0.0-3.0); LARGE UNSTAINED CELL # 0.3 K/mm3 (0.0-0.4); LARGE UNSTAINED CELL % 3.4 % (0.0-4.0); LYMPH # 1.6 K/mm3 (1.5-4.5); LYMPH % 20.3 % (24.0-44.0); MEAN CORPUSCULAR HEMOGLOBIN 33.3 pg (27.0-33.0); MEAN CORPUSCULAR HGB CONC 33.3 g/dl (32.0-36.5); MEAN CORPUSCULAR VOLUME 100.2 fl (80.0-96.0); MONO # 0.6 K/mm3 (0.0-0.8); MONO % 7.8 % (0.0-5.0); NEUTROPHILS % 64.7 % (36.0-66.0); PLATELET COUNT, AUTOMATED 379 k/mm3 (150-450); RED CELL DISTRIBUTION WIDTH 12.7 % (11.5-14.5); WHITE BLOOD COUNT 7.7 K/mm3 (4.0-10.0)
[2016-11-23 06:34] LABS: ALBUMIN 3.2 GM/DL (3.2-5.2); ALBUMIN/GLOBULIN RATIO 0.84 (1.00-1.93); ALKALINE PHOSPHATASE 101 U/L (45-117); ALT/SGPT 26 U/L (12-78); ANION GAP 9 MEQ/L (8-16); AST/SGOT 17 U/L (15-37); BILIRUBIN,TOTAL 0.4 MG/DL (0.2-1.0); BLOOD UREA NITROGEN 19 MG/DL (7-18); CALCIUM LEVEL 8.9 MG/DL (8.8-10.2); CARBON DIOXIDE LEVEL 27 MEQ/L (21-32); CHLORIDE LEVEL 102 MEQ/L (98-107); CREATININE FOR GFR 0.94 MG/DL (0.55-1.02); GLOMERULAR FILTRATION RATE > 60.0 (>32); GLUCOSE, FASTING 98 MG/DL (83-110); MAGNESIUM LEVEL 1.8 MG/DL (1.8-2.4); POTASSIUM SERUM 3.6 MEQ/L (3.5-5.1); SODIUM LEVEL 138 MEQ/L (136-145)
[2016-11-23] MEDS: DRONABINOL 2.5 MG CAP (MARINOL) PO SCH ×3 (08:36→17:22)
[2016-11-23] MEDS: amLODIPine 5 MG TAB PO SCH (08:37)
[2016-11-23] MEDS: VERAPAMIL 180 MG SR TAB PO SCH (08:37)
[2016-11-23] MEDS: ASPIRIN 81 MG ENTERIC TAB PO SCH (08:37)
[2016-11-23] MEDS: SENOKOT S TAB PO SCH (08:37)
[2016-11-23] MEDS: PANTOPRAZOLE 40MG TAB (PROTONIX) PO SCH (08:37)
[2016-11-23] MEDS: HEPARIN SOD (PORCINE) 5000 UNITS/ML VIAL SC SCH ×2 (08:38→20:15)
[2016-11-23] MEDS: LIOTHYRONINE 25 MCG TAB PO SCH (08:39)
[2016-11-23] MEDS: ERTAPENEM SODIUM 0.5 GM in NS 50 ML IV SCH (08:39)
[2016-11-23] MEDS: LACTOBACILLUS ACIDOPHILUS CAP (BACID) PO SCH ×2 (08:39→20:15)
[2016-11-23] MEDS ORDERED: NITROFURANTOIN (MACROBID) 100 MG CAP PO SCH (09:00)
[2016-11-23] MEDS: DONEPEZIL 5 MG TAB PO SCH (11:40)
--- NOTE | 2016-11-23 14:14 | IPNPDOC ---
Text Note Date of Service The patient was seen on 11/23/16. NOTE Subjective: Denies any complaints. Had foul smelling urine. No dysuria. Objective: Vitals: (see below) General: No acute distress, laying comfortably in bed. HEENT: Moist mucous membranes. Neck: No JVD or lymphadenopathy Cardiac: RRR, No murmurs Pulm: Diminished breath sounds at the bases b/l. No wheezing, rhonchi Abd: NT/ND No rebound/guarding/rigidity. + BS Ext: No edema or cyanosis Neuro: Strength 5/5 BUE and BLE. CN 2-12 intact. F to N intact Alert and Oriented to person and hospital. Labs (see below) Images: MRI brain IMPRESSION: 1. There is cerebral and cerebellar atrophy with extensive deep cerebral white matter ischemic change. 2. Possible mild right mastoiditis, correlate clinically. CXR 10/26/16 IMPRESSION: Chronic changes and other findings as described above. Assessment/Plan 1. Complicated UTI- + ESBL. Started on Ertapenem. Afebrile. hemodynamically stable. 2. Severe hypothyroidism - patient has baseline dementia and her had not been taking her medications. TSH improved.It is reported that her recently from severe hypothyroidism, and she is currently grieving. Patient is status post IV Synthroid is now back to by mouth. Stress test steroids d/c. Thyroid functions continue to improving. Liothyronine. 3. Nausea/vomiting- resolved. On bowel regimen for constipation. 4. Hypertensive urgency- secondary to medication noncompliance. Blood pressure medications restarted. 5. Dementia- will need 24-hour care. 6. History of CAD- continue current meds 7. CK D stage III- stable. 8. Suicidal ideations- He had spoken to Odell, who recommends monitoring as patient is going through normal grieving process. 9. Poor appetite- secondary to grief. Calorie count, appetite stimulant. 10. Constipation - on bowel regimen. 11.Hyponatremia- resolved. likely multifactorial, secondary to hypovolemia and hypothyroidism. Status post IV fluids. Continue thyroid replacement. DVT prophy: Heparin SQ. Encourage PT/OT participation. Daughter states she is unable to take care of pt. Case management looking into prison care facilities. Case management looking for guardianship. VS,Fishbone, I+O VS, Fishbone, I+O Laboratory Tests 11/23/16 05:55 Red Blood Count 3.41 L, Mean Corpuscular Volume 100.2 H, Mean Corpuscular Hemoglobin 33.3 H, Mean Corpuscular Hemoglobin Concent 33.3, Red Cell Distribution Width 12.7, Neutrophils (%) (Auto) 64.7, Lymphocytes (%) (Auto) 20.3 L, Monocytes (%) (Auto) 7.8 H, Eosinophils (%) (Auto) 2.9, Basophils (%) ( Auto) 0.9, Neutrophils # (Auto) 5.0, Lymphocytes # (Auto) 1.6, Monocytes # (Auto ) 0.6, Eosinophils # (Auto) 0.2, Basophils # (Auto) 0.1, Calcium Level 8.9, Aspartate Amino Transf (AST/SGOT) 17, Alanine Aminotransferase (ALT/SGPT) 26, Alkaline Phosphatase 101, Total Bilirubin 0.4, Total Protein 7.0, Albumin 3.2 Vital Signs Date Time Temp Pulse Resp B/P (MAP) Pulse Ox O2 Delivery O2 Flow Rate FiO2 11/23/16 08:37 74 145/66 11/23/16 08:00 Room Air 11/23/16 06:00 98.3 18 97 I&O- Last 24 Hours up to 6 AM 11/23/16 06:00 Intake Total 1080 ml Output Total 900 ml Balance 180 ml LUIS GLASER MD Nov 23, 2016 14:14
[2016-11-23] MEDS: ATORVASTATIN 20 MG TAB PO SCH (20:15)
[2016-11-24] MEDS: LEVOTHYROXINE 100MCG TABLET (0.1MG) PO SCH (05:30)
[2016-11-24 06:00] VITALS: BP 146/67
[2016-11-24] MEDS: VERAPAMIL 180 MG SR TAB PO SCH (08:18)
[2016-11-24] MEDS: LIOTHYRONINE 25 MCG TAB PO SCH (08:18)
[2016-11-24] MEDS: ASPIRIN 81 MG ENTERIC TAB PO SCH (08:19)
[2016-11-24] MEDS: LACTOBACILLUS ACIDOPHILUS CAP (BACID) PO SCH ×2 (08:19→19:46)
[2016-11-24] MEDS: DRONABINOL 2.5 MG CAP (MARINOL) PO SCH ×3 (08:19→17:18)
[2016-11-24] MEDS: HEPARIN SOD (PORCINE) 5000 UNITS/ML VIAL SC SCH ×2 (08:19→19:46)
[2016-11-24] MEDS: PANTOPRAZOLE 40MG TAB (PROTONIX) PO SCH (08:19)
[2016-11-24] MEDS: SENOKOT S TAB PO SCH (08:19)
[2016-11-24] MEDS: amLODIPine 5 MG TAB PO SCH (08:19)
[2016-11-24] MEDS: DONEPEZIL 5 MG TAB PO SCH (08:19)
[2016-11-24] MEDS: ERTAPENEM SODIUM 0.5 GM in NS 50 ML IV SCH (08:20)
--- NOTE | 2016-11-24 17:08 | IPN ---
DATE: 11/24/2016 The patient has no complaints today, is frustrated being in the hospital, would like to go outside if that was possible. Did verify that she was having some symptoms of foul-smelling urine but did not have dysuria. Temperature is 97.5, pulse 77, respiratory rate 18, blood pressure 146/67, She was asleep and answering questions appropriately. Mucous membranes moist. Neck supple. Breathing is symmetrical and rested. Heart is distant sounding. Normal S1, S2. Abdomen is soft, doughy. No suprapubic tenderness. Negative fluid status of -195. White cell count 7.7, hemoglobin 11.4 and platelets of 379, BUN 19, creatinine 0.94. Urine culture grew ESBL. ASSESSMENT: This is an 81-year-old, complicated urinary tract infection (UTi) with ESBL. PLAN: 1. Urinary tract infection. The patient is on ertapenem. Would plan a 7-day course. 2. The patient has severe hypothyroidism, was on intravenous (IV) Synthroid but is now back on oral. 3. The patient had hypertensive urgency. Blood pressure is now well reasonably well controlled. 4. The patient has dementia and is planned for 24-hour care. 5. The patient has a history of coronary artery disease. 6. The patient has chronic kidney disease stage III. 7. The patient's recently, was concerned about the possibility of suicidal ideation. In previous discussion by my colleagues with the covering psychiatrist, suggests this is likely normal grieving process. I do note that the patient has her 's picture at bedside. 8. The patient has a poor appetite secondary to grief. Calorie count has been ordered. She does have two cans of Ensure at bedside, which I have encouraged her to take to improve her strength. 9. The patient has appropriate deep vein thrombosis (DVT) prophylaxis. 10. The patient has resolved hyponatremia. MTDD
[2016-11-24] MEDS: ATORVASTATIN 20 MG TAB PO SCH (19:46)
[2016-11-25] MEDS: LEVOTHYROXINE 100MCG TABLET (0.1MG) PO SCH (05:33)
[2016-11-25 06:00] VITALS: BP 143/63
[2016-11-25] MEDS: LACTOBACILLUS ACIDOPHILUS CAP (BACID) PO SCH ×2 (08:14→20:52)
[2016-11-25] MEDS: LIOTHYRONINE 25 MCG TAB PO SCH (08:15)
[2016-11-25] MEDS: VERAPAMIL 180 MG SR TAB PO SCH (08:15)
[2016-11-25] MEDS: ASPIRIN 81 MG ENTERIC TAB PO SCH (08:19)
[2016-11-25] MEDS: DONEPEZIL 5 MG TAB PO SCH (08:19)
[2016-11-25] MEDS: DRONABINOL 2.5 MG CAP (MARINOL) PO SCH ×3 (08:19→17:19)
[2016-11-25] MEDS: HEPARIN SOD (PORCINE) 5000 UNITS/ML VIAL SC SCH ×2 (08:19→20:52)
[2016-11-25] MEDS: SENOKOT S TAB PO SCH (08:19)
[2016-11-25] MEDS: PANTOPRAZOLE 40MG TAB (PROTONIX) PO SCH (08:19)
[2016-11-25] MEDS: ERTAPENEM SODIUM 0.5 GM in NS 50 ML IV SCH (08:19)
[2016-11-25] MEDS: amLODIPine 5 MG TAB PO SCH (08:20)
[2016-11-25] MEDS: ACETAMINOPHEN TAB 650MG DOSE (2X325MG) PO PRN (12:23)
[2016-11-25] MEDS: ONDANSETRON 4MG/2ML VIAL (J2405) IV PRN (12:35)
[2016-11-25] MEDS: ATORVASTATIN 20 MG TAB PO SCH (20:52)
[2016-11-26] MEDS: LEVOTHYROXINE 100MCG TABLET (0.1MG) PO SCH (05:42)
[2016-11-26 05:57] LABS: CALCIUM LEVEL 8.9 MG/DL (8.8-10.2); GLOMERULAR FILTRATION RATE 56.6 (>32); MEAN CORPUSCULAR HEMOGLOBIN 33.6 pg (27.0-33.0); MEAN CORPUSCULAR HGB CONC 33.9 g/dl (32.0-36.5); MEAN CORPUSCULAR VOLUME 98.9 fl (80.0-96.0); POTASSIUM SERUM 4.1 MEQ/L (3.5-5.1); WHITE BLOOD COUNT 7.1 K/mm3 (4.0-10.0)
[2016-11-26 06:00] VITALS: BP 134/62
--- NOTE | 2016-11-26 06:43 | IPN ---
DATE: 11/25/2016 SUBJECTIVE: The patient has no complaints of pain this morning. She did apparently eat some breakfast and has finished around half a can of vanilla Ensure at bedside. She remembers me from previous encounters, although could not tell me whether or not she went outside yesterday. No complaints of pain, chest pain, shortness of breath. OBJECTIVE: VITAL SIGNS: Temperature 98.8, pulse 73, respiratory rate 17, blood pressure 143/63, 98% on room air. Intake and output notable for positive fluid balance of 75, two bowel movements yesterday. HEENT: Mucous membranes moist. NECK: Supple. LUNGS: Breathing is symmetrical, rested. I to E ratio is 1:3. Somewhat diminished throughout. HEART: Distant sounding normal S1, S2. ABDOMEN: Soft, doughy, nontender. No suprapubic tenderness. LABORATORY DATA: White cell count 7.7, hemoglobin 11.4, and platelets of 379. BUN 19, creatinine 0.94. ASSESSMENT: This is an 81-year-old with complicated urinary tract infection with extended-spectrum beta-lactamase (ESBL). PLAN: 1. Urinary tract infection. The patient is on ertapenem, planning a seven-day course. 2. The patient has severe hypothyroidism. Was on intravenous (IV) Synthroid, but is now back on oral. 3. The patient had hypertensive urgency. Blood pressure is reasonably controlled. 4. The patient has a history of dementia. She is planned for 24-hour care. 5. The patient has a history of coronary artery disease. 6. The patient has chronic kidney disease stage III. 7. The patient's recently. His picture is at bedside again, and she thought to be going through a normal grieving process. 8. The patient has had poor appetite. It looks as though today she did take some Ensure which is encouraging. 9. Hyponatremia which has resolved. 10. The patient has appropriate deep venous thrombosis (DVT) prophylaxis.
[2016-11-26] MEDS: LIOTHYRONINE 25 MCG TAB PO SCH (08:15)
[2016-11-26] MEDS: ASPIRIN 81 MG ENTERIC TAB PO SCH (08:15)
[2016-11-26] MEDS: LACTOBACILLUS ACIDOPHILUS CAP (BACID) PO SCH ×2 (08:15→20:14)
[2016-11-26] MEDS: VERAPAMIL 180 MG SR TAB PO SCH (08:15)
[2016-11-26] MEDS: PANTOPRAZOLE 40MG TAB (PROTONIX) PO SCH (08:15)
[2016-11-26] MEDS: SENOKOT S TAB PO SCH (08:16)
[2016-11-26] MEDS: DONEPEZIL 5 MG TAB PO SCH (08:16)
[2016-11-26] MEDS: DRONABINOL 2.5 MG CAP (MARINOL) PO SCH ×3 (08:16→17:20)
[2016-11-26] MEDS: HEPARIN SOD (PORCINE) 5000 UNITS/ML VIAL SC SCH ×2 (08:16→20:14)
[2016-11-26] MEDS: amLODIPine 5 MG TAB PO SCH (08:16)
[2016-11-26] MEDS: ERTAPENEM SODIUM 0.5 GM in NS 50 ML IV SCH (08:16)
--- NOTE | 2016-11-26 17:57 | IPN ---
DATE: 11/26/2016 SUBJECTIVE: The patient has no complaints of pain, chest pain, shortness of breath. She feels fatigued this morning, not particularly hungry. Although has taken again another half a can of Ensure prior to my arrival. OBJECTIVE: VITAL SIGNS: Temperature 98.6, pulse 65, respiratory rate 15, blood pressure 134/62, 97% on room air. Intake and output notable for positive fluid balance of 860, three bowel movements yesterday. She is awake and answering questions appropriately, somewhat flattened affect. Clearly understands that she is in the hospital and would appear to have capacity to make medical decisions although perhaps seems slightly depressed. HEART: Distant sounding. ABDOMEN: Soft, doughy, nontender. LUNGS: Breathing is symmetrical and rested. LABORATORY DATA: White cell count 7.1, hemoglobin 10.6, and platelets of 293. BUN 22, creatinine 1. ASSESSMENT: This is an 81-year-old with complicated urinary tract infection with extended-spectrum beta-lactamase (ESBL) producing E-coli. PLAN: 1. Urinary tract infection. The patient is on ertapenem, planning a seven-day course. Last dose of ertapenem will be on the 29 of November. 2. The patient has severe hypothyroidism which has now been regulated and is back on oral medications. 3. The patient had hypertensive urgency which is resolved. 4. The patient has a history of dementia. She is planned for 24-hour care. Would appear to have capacity to make some healthcare decisions. Although based on her grieving process, I would not want her to make end of life decisions in her current state. 5. The patient has a history of coronary artery disease. 6. The patient has chronic kidney disease stage III. 7. The patient would appear to have poor appetite. She has a body mass index of 20.4 with a weight which would have appeared to have remained stable during her stay although her pre-albumin is 15.8. 8. Patient has resolved hyponatremia. 9. The patient has appropriate deep venous thrombosis (DVT) prophylaxis.
[2016-11-26] MEDS: ATORVASTATIN 20 MG TAB PO SCH (20:14)
[2016-11-27 06:00] VITALS: BP 138/65
[2016-11-27 06:10] LABS: MEAN CORPUSCULAR HEMOGLOBIN 33.2 pg (27.0-33.0); MEAN CORPUSCULAR HGB CONC 33.5 g/dl (32.0-36.5); MEAN CORPUSCULAR VOLUME 98.9 fl (80.0-96.0); RED CELL DISTRIBUTION WIDTH 12.5 % (11.5-14.5); WHITE BLOOD COUNT 8.9 K/mm3 (4.0-10.0)
[2016-11-27 06:17] LABS: ANION GAP 7 MEQ/L (8-16); BLOOD UREA NITROGEN 17 MG/DL (7-18); CALCIUM LEVEL 9.1 MG/DL (8.8-10.2); CARBON DIOXIDE LEVEL 28 MEQ/L (21-32); CHLORIDE LEVEL 103 MEQ/L (98-107); CREATININE FOR GFR 0.91 MG/DL (0.55-1.02); GLOMERULAR FILTRATION RATE > 60.0 (>32); GLUCOSE, FASTING 89 MG/DL (83-110); POTASSIUM SERUM 4.1 MEQ/L (3.5-5.1); SODIUM LEVEL 138 MEQ/L (136-145)
[2016-11-27] MEDS: LEVOTHYROXINE 100MCG TABLET (0.1MG) PO SCH (06:29)
[2016-11-27] MEDS: ERTAPENEM SODIUM 0.5 GM in NS 50 ML IV SCH (07:56)
[2016-11-27] MEDS: DONEPEZIL 5 MG TAB PO SCH (07:56)
[2016-11-27] MEDS: DRONABINOL 2.5 MG CAP (MARINOL) PO SCH ×3 (07:57→17:57)
[2016-11-27] MEDS: LACTOBACILLUS ACIDOPHILUS CAP (BACID) PO SCH ×2 (07:58→20:19)
[2016-11-27] MEDS: SENOKOT S TAB PO SCH (07:58)
[2016-11-27] MEDS: VERAPAMIL 180 MG SR TAB PO SCH (07:58)
[2016-11-27] MEDS: amLODIPine 5 MG TAB PO SCH (07:58)
[2016-11-27] MEDS: ASPIRIN 81 MG ENTERIC TAB PO SCH (07:58)
[2016-11-27] MEDS: PANTOPRAZOLE 40MG TAB (PROTONIX) PO SCH (07:58)
[2016-11-27] MEDS: LIOTHYRONINE 25 MCG TAB PO SCH (07:59)
[2016-11-27] MEDS: HEPARIN SOD (PORCINE) 5000 UNITS/ML VIAL SC SCH ×2 (07:59→20:19)
[2016-11-27] MEDS: ATORVASTATIN 20 MG TAB PO SCH (20:20)
[2016-11-28] MEDS: LEVOTHYROXINE 100MCG TABLET (0.1MG) PO SCH (05:33)
[2016-11-28 06:00] VITALS: BP 136/63
[2016-11-28 06:11] LABS: MEAN CORPUSCULAR HEMOGLOBIN 33.8 pg (27.0-33.0); MEAN CORPUSCULAR HGB CONC 34.4 g/dl (32.0-36.5); MEAN CORPUSCULAR VOLUME 98.2 fl (80.0-96.0); RED CELL DISTRIBUTION WIDTH 12.7 % (11.5-14.5); WHITE BLOOD COUNT 8.2 K/mm3 (4.0-10.0)
[2016-11-28 06:17] LABS: ANION GAP 7 MEQ/L (8-16); BLOOD UREA NITROGEN 16 MG/DL (7-18); CARBON DIOXIDE LEVEL 28 MEQ/L (21-32); CHLORIDE LEVEL 99 MEQ/L (98-107); CREATININE FOR GFR 0.82 MG/DL (0.55-1.02); GLOMERULAR FILTRATION RATE > 60.0 (>32); GLUCOSE, FASTING 99 MG/DL (83-110); SODIUM LEVEL 134 MEQ/L (136-145)
[2016-11-28] MEDS: ERTAPENEM SODIUM 0.5 GM in NS 50 ML IV SCH (09:10)
[2016-11-28] MEDS: HEPARIN SOD (PORCINE) 5000 UNITS/ML VIAL SC SCH ×2 (09:13→20:02)
[2016-11-28] MEDS: DONEPEZIL 5 MG TAB PO SCH (09:13)
[2016-11-28] MEDS: amLODIPine 5 MG TAB PO SCH (09:14)
[2016-11-28] MEDS: SENOKOT S TAB PO SCH (09:14)
[2016-11-28] MEDS: LACTOBACILLUS ACIDOPHILUS CAP (BACID) PO SCH ×2 (09:14→20:01)
[2016-11-28] MEDS: DRONABINOL 2.5 MG CAP (MARINOL) PO SCH ×3 (09:14→17:31)
[2016-11-28] MEDS: LIOTHYRONINE 25 MCG TAB PO SCH (09:14)
[2016-11-28] MEDS: ASPIRIN 81 MG ENTERIC TAB PO SCH (09:14)
[2016-11-28] MEDS: VERAPAMIL 180 MG SR TAB PO SCH (09:14)
[2016-11-28] MEDS: PANTOPRAZOLE 40MG TAB (PROTONIX) PO SCH (09:14)
[2016-11-28] MEDS: ATORVASTATIN 20 MG TAB PO SCH (20:01)
--- NOTE | 2016-11-28 21:46 | IPN ---
DATE OF SERVICE: 11/27/2016 The patient has no complaints this morning, is tired, is not particularly huingry, but has taken some of her Ensure again. Temperature 97.3, pulse 69, respiratory rate 19, blood pressure 138/65, 95% on room air. Intake and output (I and O) notable for negative fluid balance of -715, one bowel movement yesterday. She is awake, appropriately interactive. She appears to know that she is in the hospital, does not know exactly why she is still in the hospital. Mucous membranes moist. Neck supple. Breathing is symmetrical. Abdomen is soft, scaphoid. Heart is distant sounding. She is cachexic appearing. White cell count 8.9, hemoglobin 11.1, platelets of 306. BUN 17, creatinine 0.9. My assessment is as follows: This is an 81-year-old with extended-spectrum beta-lactamase (ESBL) urinary tract infection. Plan is as follows: 1. Urinary tract infection. Last dose of ertapenem will be the 29 of November for her complicated urinary tract infection (UTI). 2. The patient had severe hypothyroidism at the time of presentation, which has been regulated back on oral medication. 3. The patient had hypertensive urgency, which is resolved. 4. The patient has a history of dementia. At this point, we did have a discussion about the potential usefulness of picking someone to make decisions on her behalf. She seems to understand that if she were to become sick, it would be useful to have someone to make those kinds of decisions and at this point I believe she could reasonably identify that person. 5. Patient has history of coronary artery disease. 6. Patient has chronic kidney disease stage III. 7. Patient has poor appetite and a relatively low body mass index given her satiety. 8. Patient has hyponatremia. 9. Patient has appropriate deep venous thrombosis (DVT) prophylaxis.
[2016-11-29] MEDS: LEVOTHYROXINE 100MCG TABLET (0.1MG) PO SCH (05:31)
[2016-11-29 05:57] LABS: MEAN CORPUSCULAR HEMOGLOBIN 33.1 pg (27.0-33.0); MEAN CORPUSCULAR HGB CONC 34.1 g/dl (32.0-36.5); RED CELL DISTRIBUTION WIDTH 12.4 % (11.5-14.5); WHITE BLOOD COUNT 8.6 K/mm3 (4.0-10.0)
[2016-11-29 06:00] VITALS: BP 132/61
[2016-11-29 06:12] LABS: ANION GAP 9 MEQ/L (8-16); BLOOD UREA NITROGEN 17 MG/DL (7-18); CALCIUM LEVEL 8.3 MG/DL (8.8-10.2); CARBON DIOXIDE LEVEL 26 MEQ/L (21-32); CHLORIDE LEVEL 100 MEQ/L (98-107); CREATININE FOR GFR 0.88 MG/DL (0.55-1.02); GLOMERULAR FILTRATION RATE > 60.0 (>32); GLUCOSE, FASTING 96 MG/DL (83-110); SODIUM LEVEL 135 MEQ/L (136-145)
[2016-11-29] MEDS: DONEPEZIL 5 MG TAB PO SCH (08:18)
[2016-11-29] MEDS: PANTOPRAZOLE 40MG TAB (PROTONIX) PO SCH (08:18)
[2016-11-29] MEDS: LACTOBACILLUS ACIDOPHILUS CAP (BACID) PO SCH ×2 (08:18→20:30)
[2016-11-29] MEDS: DRONABINOL 2.5 MG CAP (MARINOL) PO SCH ×3 (08:18→17:09)
[2016-11-29] MEDS: ASPIRIN 81 MG ENTERIC TAB PO SCH (08:19)
[2016-11-29] MEDS: ERTAPENEM SODIUM 0.5 GM in NS 50 ML IV SCH (08:19)
[2016-11-29] MEDS: amLODIPine 5 MG TAB PO SCH (08:19)
[2016-11-29] MEDS: LIOTHYRONINE 25 MCG TAB PO SCH (08:19)
[2016-11-29] MEDS: SENOKOT S TAB PO SCH (08:19)
[2016-11-29] MEDS: VERAPAMIL 180 MG SR TAB PO SCH (08:19)
[2016-11-29] MEDS: HEPARIN SOD (PORCINE) 5000 UNITS/ML VIAL SC SCH ×2 (08:20→20:32)
[2016-11-29] MEDS: ATORVASTATIN 20 MG TAB PO SCH (20:31)
--- NOTE | 2016-11-29 21:29 | IPN ---
DATE: 11/28/2016 SUBJECTIVE: Ms. Rasmussen is not feeling hungry today, although she has had some of her Ensure. She has no complaints of pain. I asked her what type of food she would like to eat, and there was no particular food that she is craving, no particular food that sounds particularly appealing. OBJECTIVE: VITAL SIGNS: Temperature is 98, pulse 69, respiratory rate 17, blood pressure 136/73. 97% on room air. GENERAL: She is awake, appropriately interactive, somewhat flattened affect. Following commands. Answering simple questions. HEENT: Mucous membranes moist. No evidence of thrush. NECK: Supple. LUNGS: Breathing is symmetrical and rested. HEART: Regular rate and rhythm. ABDOMEN: Soft, doughy, nontender. She is thin appearing. LABORATORY DATA: White cell count 8.2, hemoglobin 11.1. BUN 16, creatinine 0.82. ASSESSMENT: An 81-year-old with complicated urinary tract infection with extended-spectrum beta-lactamase producing Escherichia (E.) coli. Last day of antibiotics is due for tomorrow. PLAN: 1. Urinary tract infection. Last day of antibiotics is tomorrow. 2. The patient has severe hypothyroidism which has been regulated and is back on her oral medication. 3. The patient has hypertensive urgency which has resolved. 4. The patient has history of dementia. Plan for 24 hour care. At this point too, I still think she has the ability to make some of her healthcare decisions. Given her state of grieving, it would be unreasonable to have her make end-of-life decisions currently. 5. The patient has coronary artery disease. 6. The patient has chronic kidney disease stage III. 7. The patient has resolved hyponatremia. 8. The patient has appropriate deep venous thrombosis (DVT) prophylaxis. 9. I think it would be a therapeutic move to take the patient to the [facility] today, should staff be available to accompany her.
[2016-11-30] MEDS: ACETAMINOPHEN TAB 650MG DOSE (2X325MG) PO PRN (00:57)
[2016-11-30] MEDS: LEVOTHYROXINE 100MCG TABLET (0.1MG) PO SCH (05:47)
[2016-11-30 06:00] VITALS: BP 134/61
[2016-11-30] MEDS: HEPARIN SOD (PORCINE) 5000 UNITS/ML VIAL SC SCH ×2 (09:24→20:54)
[2016-11-30] MEDS: LIOTHYRONINE 25 MCG TAB PO SCH (09:25)
[2016-11-30] MEDS: DRONABINOL 2.5 MG CAP (MARINOL) PO SCH ×3 (09:25→18:39)
[2016-11-30] MEDS: LACTOBACILLUS ACIDOPHILUS CAP (BACID) PO SCH ×2 (09:25→20:54)
[2016-11-30] MEDS: DONEPEZIL 5 MG TAB PO SCH (09:25)
[2016-11-30] MEDS: PANTOPRAZOLE 40MG TAB (PROTONIX) PO SCH (09:26)
[2016-11-30] MEDS: ASPIRIN 81 MG ENTERIC TAB PO SCH (09:26)
[2016-11-30] MEDS: VERAPAMIL 180 MG SR TAB PO SCH (09:27)
[2016-11-30] MEDS: amLODIPine 5 MG TAB PO SCH (09:27)
--- NOTE | 2016-11-30 12:44 | IPN ---
DATE OF SERVICE: 11/29/2016 Ms. Rasmussen is feeling tired this morning. She says she is not particularly hungry. She has no pain, chest pain, shortness of breath. Temperature is 97.3, pulse 73, respiratory rate 17, blood pressure 132/61, 97% on room air. INTAKE AND OUTPUT (I AND O): Notable for a negative fluid balance of -130. Two bowel movements yesterday. She is sleepy but easily awoken. Answering simple questions appropriately. Following commands. Somewhat flattened affect today. Mucous membranes moist. Thin-appearing. HEART: Is distant-sounding. Regular rate and rhythm. ABDOMEN: Soft, doughy, nontender. Breath sounds are symmetrical, rested. Sodium is 135, BUN 17, creatinine 0.88. White cell count 8.6, hemoglobin 10.9, and platelets of 262. My assessment is as follows: An 81-year-old with extended-spectrum beta-lactamase producing Escherichia (E.) coli urinary tract infection, resolved. The plan is as follows: 1. Urinary tract infection (UTI). This has resolved. Currently, received her last dose of antibiotics for complicated urinary tract infection. 2. The patient had severe hypothyroidism at the time of presentation, which has been regulated, and she is on oral medication. 3. The patient has history of hypertensive urgency, which has resolved. 4. The patient has a history of dementia. 5. The patient has a history of coronary artery disease. 6. The patient has chronic kidney disease stage III. 7. The patient has poor appetite. 8. The patient has hyponatremia, which is improving. 8. The patient can be made alternate level of care (ALC) today.
[2016-11-30] MEDS: ATORVASTATIN 20 MG TAB PO SCH (20:54)
[2016-12-01 06:00] VITALS: BP 130/59
[2016-12-01] MEDS: LEVOTHYROXINE 100MCG TABLET (0.1MG) PO SCH (06:14)
[2016-12-01] MEDS: HEPARIN SOD (PORCINE) 5000 UNITS/ML VIAL SC SCH ×2 (08:48→20:19)
[2016-12-01] MEDS: ASPIRIN 81 MG ENTERIC TAB PO SCH (08:48)
[2016-12-01] MEDS: amLODIPine 5 MG TAB PO SCH (08:55)
[2016-12-01] MEDS: DRONABINOL 2.5 MG CAP (MARINOL) PO SCH ×3 (08:55→18:15)
[2016-12-01] MEDS: PANTOPRAZOLE 40MG TAB (PROTONIX) PO SCH (08:56)
[2016-12-01] MEDS: VERAPAMIL 180 MG SR TAB PO SCH (08:56)
[2016-12-01] MEDS: DONEPEZIL 5 MG TAB PO SCH (08:56)
[2016-12-01] MEDS: LACTOBACILLUS ACIDOPHILUS CAP (BACID) PO SCH ×2 (08:56→20:19)
[2016-12-01] MEDS: LIOTHYRONINE 25 MCG TAB PO SCH (08:56)
[2016-12-01] MEDS: ATORVASTATIN 20 MG TAB PO SCH (20:19)
[2016-12-01] MEDS: ACETAMINOPHEN TAB 650MG DOSE (2X325MG) PO PRN (20:19)
[2016-12-01 22:00] VITALS: BP 140/63
[2016-12-02 06:00] VITALS: BP 143/67
[2016-12-02 06:20] LABS: MEAN CORPUSCULAR HEMOGLOBIN 33.1 pg (27.0-33.0); MEAN CORPUSCULAR VOLUME 100.2 fl (80.0-96.0); RED CELL DISTRIBUTION WIDTH 12.5 % (11.5-14.5); WHITE BLOOD COUNT 5.4 K/mm3 (4.0-10.0)
[2016-12-02] MEDS: LEVOTHYROXINE 100MCG TABLET (0.1MG) PO SCH (06:30)
[2016-12-02 06:39] LABS: ANION GAP 8 MEQ/L (8-16); BLOOD UREA NITROGEN 22 MG/DL (7-18); CALCIUM LEVEL 9.1 MG/DL (8.8-10.2); CARBON DIOXIDE LEVEL 26 MEQ/L (21-32); CHLORIDE LEVEL 101 MEQ/L (98-107); CREATININE FOR GFR 0.85 MG/DL (0.55-1.02); GLOMERULAR FILTRATION RATE > 60.0 (>32); GLUCOSE, FASTING 88 MG/DL (83-110); POTASSIUM SERUM 3.9 MEQ/L (3.5-5.1); SODIUM LEVEL 135 MEQ/L (136-145)
[2016-12-02] MEDS: LIOTHYRONINE 25 MCG TAB PO SCH (08:49)
[2016-12-02] MEDS: VERAPAMIL 180 MG SR TAB PO SCH (08:50)
[2016-12-02] MEDS: PANTOPRAZOLE 40MG TAB (PROTONIX) PO SCH (08:51)
[2016-12-02] MEDS: ASPIRIN 81 MG ENTERIC TAB PO SCH (08:51)
[2016-12-02] MEDS: amLODIPine 5 MG TAB PO SCH (08:51)
[2016-12-02] MEDS: LACTOBACILLUS ACIDOPHILUS CAP (BACID) PO SCH ×2 (08:51→20:02)
[2016-12-02] MEDS: DRONABINOL 2.5 MG CAP (MARINOL) PO SCH ×3 (08:51→17:30)
[2016-12-02] MEDS: DONEPEZIL 5 MG TAB PO SCH (08:51)
[2016-12-02] MEDS: HEPARIN SOD (PORCINE) 5000 UNITS/ML VIAL SC SCH ×2 (08:57→20:03)
[2016-12-02] MEDS: ATORVASTATIN 20 MG TAB PO SCH (20:02)
[2016-12-03] MEDS: LEVOTHYROXINE 100MCG TABLET (0.1MG) PO SCH (05:54)
[2016-12-03 06:00] VITALS: BP 135/64
[2016-12-03] MEDS: DRONABINOL 2.5 MG CAP (MARINOL) PO SCH ×3 (07:30→17:30)
[2016-12-03] MEDS: HEPARIN SOD (PORCINE) 5000 UNITS/ML VIAL SC SCH ×2 (09:36→21:34)
[2016-12-03] MEDS: LACTOBACILLUS ACIDOPHILUS CAP (BACID) PO SCH ×2 (09:37→21:33)
[2016-12-03] MEDS: LIOTHYRONINE 25 MCG TAB PO SCH (09:37)
[2016-12-03] MEDS: DONEPEZIL 5 MG TAB PO SCH (09:37)
[2016-12-03] MEDS: amLODIPine 5 MG TAB PO SCH (09:37)
[2016-12-03] MEDS: PANTOPRAZOLE 40MG TAB (PROTONIX) PO SCH (09:38)
[2016-12-03] MEDS: ASPIRIN 81 MG ENTERIC TAB PO SCH (09:38)
[2016-12-03] MEDS: VERAPAMIL 180 MG SR TAB PO SCH (09:38)
[2016-12-03] MEDS: ATORVASTATIN 20 MG TAB PO SCH (21:33)
[2016-12-04] MEDS: LEVOTHYROXINE 100MCG TABLET (0.1MG) PO SCH (05:29)
[2016-12-04] MEDS: HEPARIN SOD (PORCINE) 5000 UNITS/ML VIAL SC SCH ×2 (08:57→20:43)
[2016-12-04] MEDS: DRONABINOL 2.5 MG CAP (MARINOL) PO SCH ×3 (08:58→18:05)
[2016-12-04] MEDS: ASPIRIN 81 MG ENTERIC TAB PO SCH (08:58)
[2016-12-04] MEDS: VERAPAMIL 180 MG SR TAB PO SCH (08:58)
[2016-12-04] MEDS: LIOTHYRONINE 25 MCG TAB PO SCH (08:58)
[2016-12-04] MEDS: LACTOBACILLUS ACIDOPHILUS CAP (BACID) PO SCH ×2 (08:59→20:42)
[2016-12-04] MEDS: PANTOPRAZOLE 40MG TAB (PROTONIX) PO SCH (08:59)
[2016-12-04] MEDS: DONEPEZIL 5 MG TAB PO SCH (08:59)
[2016-12-04] MEDS: amLODIPine 5 MG TAB PO SCH (08:59)
[2016-12-04] MEDS: ATORVASTATIN 20 MG TAB PO SCH (20:42)
[2016-12-05] MEDS: LEVOTHYROXINE 100MCG TABLET (0.1MG) PO SCH (05:47)
[2016-12-05 06:00] VITALS: BP 131/60
[2016-12-05] MEDS: DRONABINOL 2.5 MG CAP (MARINOL) PO SCH ×3 (09:30→18:28)
[2016-12-05] MEDS: HEPARIN SOD (PORCINE) 5000 UNITS/ML VIAL SC SCH ×2 (09:30→21:23)
[2016-12-05] MEDS: LACTOBACILLUS ACIDOPHILUS CAP (BACID) PO SCH ×2 (09:30→21:23)
[2016-12-05] MEDS: DONEPEZIL 5 MG TAB PO SCH (09:30)
[2016-12-05] MEDS: ASPIRIN 81 MG ENTERIC TAB PO SCH (09:31)
[2016-12-05] MEDS: PANTOPRAZOLE 40MG TAB (PROTONIX) PO SCH (09:31)
[2016-12-05] MEDS: amLODIPine 5 MG TAB PO SCH (09:31)
[2016-12-05] MEDS: LIOTHYRONINE 25 MCG TAB PO SCH (09:33)
[2016-12-05] MEDS: VERAPAMIL 180 MG SR TAB PO SCH (09:33)
[2016-12-05] MEDS: ATORVASTATIN 20 MG TAB PO SCH (21:23)
[2016-12-06] MEDS: LEVOTHYROXINE 100MCG TABLET (0.1MG) PO SCH (05:41)
[2016-12-06 06:00] VITALS: BP 122/71
[2016-12-06] MEDS: LIOTHYRONINE 25 MCG TAB PO SCH (08:57)
[2016-12-06] MEDS: DRONABINOL 2.5 MG CAP (MARINOL) PO SCH ×3 (08:57→17:07)
[2016-12-06] MEDS: HEPARIN SOD (PORCINE) 5000 UNITS/ML VIAL SC SCH ×2 (08:57→21:10)
[2016-12-06] MEDS: VERAPAMIL 180 MG SR TAB PO SCH (08:57)
[2016-12-06] MEDS: amLODIPine 5 MG TAB PO SCH (08:58)
[2016-12-06] MEDS: LACTOBACILLUS ACIDOPHILUS CAP (BACID) PO SCH ×2 (08:58→21:10)
[2016-12-06] MEDS: DONEPEZIL 5 MG TAB PO SCH (08:58)
[2016-12-06] MEDS: ASPIRIN 81 MG ENTERIC TAB PO SCH (08:58)
[2016-12-06] MEDS: PANTOPRAZOLE 40MG TAB (PROTONIX) PO SCH (08:58)
--- NOTE | 2016-12-06 12:30 | IPNPDOC ---
Subjective Date Seen The patient was seen on 12/05/16. Subjective Chief Complaint/HPI The patient is a 81-year-old female admitted with a reason for visit of Hypertensive Emergency/Vomiting. General: Reports: Fatigue, Denies: ROS Unobtainable, Chills, Night Sweats, Malaise, Normal Appetite, Other Symptoms Constitutional: Reports: Fatigue, Denies: Chills, Fever, Malaise, Night Sweats, Weakness, Weight Loss, Lethargy , Other Eyes: Denies: Pain, Vision change, Conjunctivae inflammation, Eyelid inflammation, Redness, Other ENT: Denies: Head Aches, Ear Pain, Dysphagia, Sinus Congestion, Post Nasal Drip , Sore Throat, Epistaxis, Other Symptoms Skin: Denies: Rash, Lesions, Jaundice, Bruising, Itching, Dry, Breakdown, Nail Changes, Other Pulmonary: Denies: Dyspnea, Cough, Pleuritic Chest Pain, Other Symptoms Cardiovascular: Denies: Chest Pain, Palpitations, Orthopnea, Paroxysmal Noc. Dyspnea, Edema, Lt Headedness, Other Symptoms Gastrointestinal: Denies: Nausea, Vomiting, Abdominal Pain, Diarrhea, Constipation, Melena, Hematochezia, Other Symptoms Objective Physical Examination General Exam: Positive: Alert, Cooperative, No Acute Distress, Other (frail, cachectic) Eye Exam: Positive: PERRLA EOMI ENT Exam: Positive: Atraumatic Chest Exam: Positive: Clear to auscultation, Normal air movement Heart Exam: Positive: Rate Normal, Normal S1, Normal S2 Abdomen Exam: Positive: Soft, Negative: Tenderness Extremity Exam: Negative: Clubbing, Cyanosis, Edema Psych Exam: Positive: Oriented x 3 Assessment /Plan Problems (1) Dementia Status: Chronic Problem Text: supportive care, PFS, dispo planning 30/11 care (2) CAD (coronary artery disease) Status: Chronic Problem Text: c/w current med (3) CKD (chronic kidney disease) Status: Chronic Problem Text: f/u bun/ cr (4) Poor appetite Status: Chronic Problem Text: / to grief calorie count appetite stimulant (5) UTI (urinary tract infection) Status: Resolved (6) Severe hypothyroidism Status: Resolved Problem Text: patient was having nausea vomiting and fairly lethargic at the time of her presentation. improved currently, She was noted to have significantly elevated TSH. She did receive a one-time bolus of 200 g of IV levothyroxine and she was 75 mcg of IV levothyroxine daily for 8 days, restarted synthroid 100mcg daily PO. tapered hydrocortisone , restarted liothyroxine by mouth daily, given T 3 lower. recheck thyroid profile Q2 days, dc T3 once T3 normal (7) Hypertensive urgency Status: Resolved Problem Text: related to the medical nonadherence. The patient was restarted on her verapamil 180 mg daily and norvasc added, Her echocardiogram reveals evidence of hypertensive heart disease. Plan/VTE VTE Prophylaxis Ordered?: Yes (heparin SQ) Plan Diet: Continue Current Activity: Continue Current Diagnostics: Repeat Labs in AM Anticipated Discharge: Halfway VS, I&O, [facility] Vital Signs/I&O Vital Signs Date Time Temp Pulse Resp B/P (MAP) Pulse Ox O2 Delivery O2 Flow Rate FiO2 12/05/16 06:00 97.5 71 17 131/60 (83) 98 Room Air I&O- Last 24 Hours up to 6 AM 12/05/16 06:00 Intake Total 960 ml Output Total 2300 ml Balance -1340 ml LUCY ZAYAS MD Dec 05, 2016 09:17
[2016-12-06] MEDS: ATORVASTATIN 20 MG TAB PO SCH (21:10)
[2016-12-07] MEDS: LEVOTHYROXINE 100MCG TABLET (0.1MG) PO SCH (05:39)
[2016-12-07 05:52] LABS: BASO % 0.6 % (0.0-1.0); EOS # 0.3 K/mm3 (0.0-0.50); EOS % 4.2 % (0.0-3.0); LARGE UNSTAINED CELL # 0.2 K/mm3 (0.0-0.4); LYMPH # 1.3 K/mm3 (1.5-4.5); LYMPH % 17.6 % (24.0-44.0); MEAN CORPUSCULAR HEMOGLOBIN 33.5 pg (27.0-33.0); MEAN CORPUSCULAR VOLUME 98.5 fl (80.0-96.0); MONO # 0.8 K/mm3 (0.0-0.8); MONO % 12.1 % (0.0-5.0); NEUTROPHILS % 62.4 % (36.0-66.0); PLATELET COUNT, AUTOMATED 265 k/mm3 (150-450); RED CELL DISTRIBUTION WIDTH 12.6 % (11.5-14.5); WHITE BLOOD COUNT 6.4 K/mm3 (4.0-10.0)
[2016-12-07 05:58] LABS: CREATININE FOR GFR 0.98 MG/DL (0.55-1.02); POTASSIUM SERUM 4.3 MEQ/L (3.5-5.1)
[2016-12-07 06:00] VITALS: BP 140/64
[2016-12-07] MEDS: DONEPEZIL 5 MG TAB PO SCH (09:51)
[2016-12-07] MEDS: DRONABINOL 2.5 MG CAP (MARINOL) PO SCH ×3 (09:51→17:07)
[2016-12-07] MEDS: VERAPAMIL 180 MG SR TAB PO SCH (09:51)
[2016-12-07] MEDS: LIOTHYRONINE 25 MCG TAB PO SCH (09:51)
[2016-12-07] MEDS: ASPIRIN 81 MG ENTERIC TAB PO SCH (09:51)
[2016-12-07] MEDS: LACTOBACILLUS ACIDOPHILUS CAP (BACID) PO SCH ×2 (09:52→21:35)
[2016-12-07] MEDS: PANTOPRAZOLE 40MG TAB (PROTONIX) PO SCH (09:52)
[2016-12-07] MEDS: HEPARIN SOD (PORCINE) 5000 UNITS/ML VIAL SC SCH ×2 (09:52→21:35)
[2016-12-07] MEDS: amLODIPine 5 MG TAB PO SCH (09:52)
[2016-12-07] MEDS: FLEET ENEMA PR PRN (14:58)
[2016-12-07] MEDS: ATORVASTATIN 20 MG TAB PO SCH (21:35)
[2016-12-07] MEDS: ACETAMINOPHEN TAB 650MG DOSE (2X325MG) PO PRN (23:59)
[2016-12-08] MEDS ORDERED: HYDROCORTISONE 1% CREAM 30 GM TOP PRN (03:30)
[2016-12-08] MEDS: LEVOTHYROXINE 100MCG TABLET (0.1MG) PO SCH (05:47)
[2016-12-08 06:00] VITALS: BP 135/63
[2016-12-08] MEDS: HEPARIN SOD (PORCINE) 5000 UNITS/ML VIAL SC SCH ×2 (09:14→20:32)
[2016-12-08] MEDS: LACTOBACILLUS ACIDOPHILUS CAP (BACID) PO SCH ×2 (09:14→20:32)
[2016-12-08] MEDS: amLODIPine 5 MG TAB PO SCH (09:15)
[2016-12-08] MEDS: DONEPEZIL 5 MG TAB PO SCH (09:15)
[2016-12-08] MEDS: ASPIRIN 81 MG ENTERIC TAB PO SCH (09:15)
[2016-12-08] MEDS: VERAPAMIL 180 MG SR TAB PO SCH (09:15)
[2016-12-08] MEDS: DRONABINOL 2.5 MG CAP (MARINOL) PO SCH ×3 (09:15→16:28)
[2016-12-08] MEDS: ACETAMINOPHEN TAB 650MG DOSE (2X325MG) PO PRN (09:16)
[2016-12-08] MEDS: PANTOPRAZOLE 40MG TAB (PROTONIX) PO SCH (09:16)
[2016-12-08] MEDS: LIOTHYRONINE 25 MCG TAB PO SCH (09:16)
--- NOTE | 2016-12-08 16:06 | IPNPDOC ---
Text Note Date of Service The patient was seen on 12/08/16. NOTE Subjective: Patient is an 81 year old female with a PMHx of Alzheimer's dementia, CKD3, CAD, HTN and Hypothyroidism who was brought to the ER by family because of nausea, vomiting and failure to take medications. She was found to have electrolyte abnormalities, rhabdomyolysis and elevated blood pressure. She was also noted to be severely hypothyroid. Patient was admitted to hospitalist service. Patient was seen and examined at the bedside. She was noted to have a rash developing on her left leg, painful and itchy. Objective: Vitals (See below) General: Lying in bed, no acute distress, comfortable, Awake and alert HEENT: NC, AT CVS: RRR, +S1S2 Lungs: Fair air entry b/l, -w/r/r Abdomen: Soft, ND, NT, +BSx4 Extremities: +PPx4, - Edema, - Calf tenderness Assessment and plan: 1. Rash on left leg - likely 2/2 herpes zoster - Presented since yesterday - Appears like multiple blisters on distribution of single dermatome - Will start Valacyclovir and calamine lotion - Will start Tramadol (low dose) for pain control 2. Dementia - Looking for placement options; will require 24 care 3. Severe hypothyroidism - 2/2 non-compliance with medications - s/p IV levothyroxine and stress dose of steroids - c/w Levothyroxine 112.5 PO 4. s/p Hyponatremia - likely 2/2 hypovolemia and hypothyroidism - s/p IV fluids 5. s/p Nausea and Vomiting - likely 2/2 constipation - c/w bowel regimen 6. s/p Hypertensive urgency - 2/2 non-compliance - c/w Amlodipine and Verapamil 7. CAD - c/w ASA, Atorvastatin, 8. Elevated Cr - less likely CKD3 - Cr better than baseline 9. Constipation - c/w bowel regimen 10. DVT prophylaxis - c/w Heparin Disposition: - Looking into placement options - c/w Antiviral treatment for Herpes Zoster for 7 days VS,Fishbone, I+O VS, Fishbone, I+O Vital Signs Date Time Temp Pulse Resp B/P (MAP) Pulse Ox O2 Delivery O2 Flow Rate FiO2 12/08/16 09:15 77 135/63 12/08/16 09:00 Room Air 12/08/16 06:00 98.3 17 97 I&O- Last 24 Hours up to 6 AM 12/08/16 05:59 Intake Total 780 ml Output Total 0 ml Balance 780 ml BRAD KRISHNA MD Dec 08, 2016 16:06
[2016-12-08] MEDS: valACYclovir HCL 500 MG TAB PO SCH ×2 (16:28→20:32)
[2016-12-08] MEDS: CALAMINE LOTION 177 ML BTL TOP SCH ×2 (16:28→20:32)
[2016-12-08] MEDS: ATORVASTATIN 20 MG TAB PO SCH (20:32)
[2016-12-09] MEDS: traMADol 50 MG TAB PO PRN (04:32)
[2016-12-09] MEDS: LEVOTHYROXINE 100MCG TABLET (0.1MG) PO SCH (05:40)
[2016-12-09 06:00] VITALS: BP 144/66
[2016-12-09 06:36] LABS: BASO % 0.9 % (0.0-1.0); EOS % 4.2 % (0.0-3.0); LARGE UNSTAINED CELL % 2.9 % (0.0-4.0); LYMPH # 0.9 K/mm3 (1.5-4.5); MEAN CORPUSCULAR HEMOGLOBIN 32.8 pg (27.0-33.0); MEAN CORPUSCULAR HGB CONC 33.1 g/dl (32.0-36.5); MEAN CORPUSCULAR VOLUME 99.3 fl (80.0-96.0); MONO % 15.1 % (0.0-5.0); NEUTROPHILS # 2.7 K/mm3 (1.8-7.7); NEUTROPHILS % 59.8 % (36.0-66.0); PLATELET COUNT, AUTOMATED 248 k/mm3 (150-450); RED CELL DISTRIBUTION WIDTH 12.6 % (11.5-14.5); WHITE BLOOD COUNT 4.5 K/mm3 (4.0-10.0)
[2016-12-09 06:37] LABS: EOS # 0.2 K/mm3 (0.0-0.50); LARGE UNSTAINED CELL # 0.1 K/mm3 (0.0-0.4); MONO # 0.7 K/mm3 (0.0-0.8)
[2016-12-09 06:53] LABS: ALBUMIN 3.2 GM/DL (3.2-5.2); ALBUMIN/GLOBULIN RATIO 0.86 (1.00-1.93); ALKALINE PHOSPHATASE 102 U/L (45-117); ALT/SGPT 44 U/L (12-78); ANION GAP 7 MEQ/L (8-16); AST/SGOT 30 U/L (15-37); BILIRUBIN,TOTAL 0.4 MG/DL (0.2-1.0); BLOOD UREA NITROGEN 14 MG/DL (7-18); CALCIUM LEVEL 9.2 MG/DL (8.8-10.2); CARBON DIOXIDE LEVEL 28 MEQ/L (21-32); CHLORIDE LEVEL 101 MEQ/L (98-107); CREATININE FOR GFR 0.86 MG/DL (0.55-1.02); GLOMERULAR FILTRATION RATE > 60.0 (>32); GLUCOSE, FASTING 91 MG/DL (83-110); MAGNESIUM LEVEL 1.7 MG/DL (1.8-2.4); POTASSIUM SERUM 4.2 MEQ/L (3.5-5.1); SODIUM LEVEL 136 MEQ/L (136-145); TOTAL PROTEIN 6.9 GM/DL (6.4-8.2)
[2016-12-09] MEDS ORDERED: MAG SULF 1GM/100ML (MAG RUN) 1 GM in APPROPRIATE DILUENT 1 EA IV ONE (07:30)
[2016-12-09] MEDS: HEPARIN SOD (PORCINE) 5000 UNITS/ML VIAL SC SCH ×2 (11:30→20:02)
[2016-12-09] MEDS: DONEPEZIL 5 MG TAB PO SCH (11:31)
[2016-12-09] MEDS: CALAMINE LOTION 177 ML BTL TOP SCH ×3 (11:31→20:02)
[2016-12-09] MEDS: valACYclovir HCL 500 MG TAB PO SCH ×3 (11:33→20:01)
[2016-12-09] MEDS: LIOTHYRONINE 25 MCG TAB PO SCH (11:33)
[2016-12-09] MEDS: ASPIRIN 81 MG ENTERIC TAB PO SCH (11:33)
[2016-12-09] MEDS: PANTOPRAZOLE 40MG TAB (PROTONIX) PO SCH (11:33)
[2016-12-09] MEDS: amLODIPine 5 MG TAB PO SCH (11:37)
[2016-12-09] MEDS: LACTOBACILLUS ACIDOPHILUS CAP (BACID) PO SCH ×2 (11:38→20:01)
[2016-12-09] MEDS: VERAPAMIL 180 MG SR TAB PO SCH (11:38)
[2016-12-09] MEDS: MAGNESIUM OXIDE 400 MG TAB (MAG-OX) PO SCH ×2 (11:39→20:01)
[2016-12-09] MEDS: DRONABINOL 2.5 MG CAP (MARINOL) PO SCH ×3 (11:42→16:32)
--- NOTE | 2016-12-09 12:37 | IPNPDOC ---
Text Note Date of Service The patient was seen on 12/09/16. NOTE Subjective: Patient is an 81 year old female with a PMHx of Alzheimer's dementia, CKD3, CAD, HTN and Hypothyroidism who was brought to the ER by family because of nausea, vomiting and failure to take medications. She was found to have electrolyte abnormalities, rhabdomyolysis and elevated blood pressure. She was also noted to be severely hypothyroid. Patient was admitted to hospitalist service. Patient was seen and examined at the bedside. She denies any pain on her leg at this point. Has not been eating very much throughout the day. Objective: Vitals (See below) General: Lying in bed, no acute distress, comfortable, Awake and alert HEENT: NC, AT CVS: RRR, +S1S2 Lungs: Fair air entry b/l, -w/r/r Abdomen: Soft, ND, NT, +BSx4 Extremities: +PPx4, - Edema, - Calf tenderness Assessment and plan: 1. Rash on left leg - likely 2/2 herpes zoster - Presented since 12/07/2016 - Appears like multiple blisters on distribution of single dermatome - c/w Valacyclovir (Day 2 of ) and calamine lotion - c/w symptomatic relief with Tramadol (low dose) for pain control 2. Dementia - Poor oral intake - c/w Dronabinol - Looking for placement options; will require 30/11 care 3. Severe hypothyroidism - 2/2 non-compliance with medications - s/p IV levothyroxine and stress dose of steroids - c/w Levothyroxine 112.5 PO 4. s/p Hyponatremia - likely 2/2 hypovolemia and hypothyroidism - s/p IV fluids 5. s/p Nausea and Vomiting - likely 2/2 constipation - c/w bowel regimen 6. s/p Hypertensive urgency - 2/2 non-compliance - c/w Amlodipine and Verapamil 7. CAD - c/w ASA, Atorvastatin, 8. Elevated Cr - less likely CKD3 - Cr better than baseline 9. Constipation - c/w bowel regimen 10. DVT prophylaxis - c/w Heparin Disposition: - Looking into placement options - c/w Antiviral treatment for Herpes Zoster for 7 days VS,Fishbone, I+O VS, Fishbone, I+O Laboratory Tests 12/09/16 05:59 Red Blood Count 3.41 L, Mean Corpuscular Volume 99.3 H, Mean Corpuscular Hemoglobin 32.8, Mean Corpuscular Hemoglobin Concent 33.1, Red Cell Distribution Width 12.6, Neutrophils (%) (Auto) 59.8, Lymphocytes (%) (Auto) 17.0 L, Monocytes (%) (Auto) 15.1 H, Eosinophils (%) (Auto) 4.2 H, Basophils (% ) (Auto) 0.9, Neutrophils # (Auto) 2.7, Lymphocytes # (Auto) 0.9 L, Monocytes # (Auto) 0.7, Eosinophils # (Auto) 0.2, Basophils # (Auto) 0.0, Calcium Level 9.2 , Aspartate Amino Transf (AST/SGOT) 30, Alanine Aminotransferase (ALT/SGPT) 44, Alkaline Phosphatase 102, Total Bilirubin 0.4, Total Protein 6.9, Albumin 3.2 Vital Signs Date Time Temp Pulse Resp B/P (MAP) Pulse Ox O2 Delivery O2 Flow Rate FiO2 12/09/16 11:38 64 152/52 12/09/16 06:00 98.4 17 96 Room Air I&O- Last 24 Hours up to 6 AM 12/09/16 05:59 Intake Total 360 ml Output Total 1000 ml Balance -640 ml BRAD KRISHNA MD Dec 09, 2016 12:37
[2016-12-09 14:00] VITALS: BP 101/54
[2016-12-09] MEDS: ATORVASTATIN 20 MG TAB PO SCH (20:01)
[2016-12-10] MEDS: LEVOTHYROXINE 100MCG TABLET (0.1MG) PO SCH (05:35)
[2016-12-10 06:00] VITALS: BP 144/65
[2016-12-10 07:06] LABS: BASO % 1.1 % (0.0-1.0); EOS # 0.2 K/mm3 (0.0-0.50); EOS % 4.2 % (0.0-3.0); LARGE UNSTAINED CELL # 0.2 K/mm3 (0.0-0.4); LARGE UNSTAINED CELL % 5.3 % (0.0-4.0); LYMPH # 1.1 K/mm3 (1.5-4.5); MEAN CORPUSCULAR HGB CONC 33.9 g/dl (32.0-36.5); MEAN CORPUSCULAR VOLUME 97.1 fl (80.0-96.0); MONO # 0.7 K/mm3 (0.0-0.8); MONO % 17.2 % (0.0-5.0); NEUTROPHILS # 1.9 K/mm3 (1.8-7.7); NEUTROPHILS % 49.1 % (36.0-66.0); PLATELET COUNT, AUTOMATED 239 k/mm3 (150-450); RED CELL DISTRIBUTION WIDTH 12.6 % (11.5-14.5); WHITE BLOOD COUNT 3.9 K/mm3 (4.0-10.0)
[2016-12-10 07:12] LABS: ALBUMIN/GLOBULIN RATIO 0.86 (1.00-1.93); ALKALINE PHOSPHATASE 90 U/L (45-117); ALT/SGPT 52 U/L (12-78); ANION GAP 11 MEQ/L (8-16); AST/SGOT 37 U/L (15-37); BILIRUBIN,TOTAL 0.3 MG/DL (0.2-1.0); BLOOD UREA NITROGEN 19 MG/DL (7-18); CALCIUM LEVEL 8.9 MG/DL (8.8-10.2); CARBON DIOXIDE LEVEL 26 MEQ/L (21-32); CHLORIDE LEVEL 99 MEQ/L (98-107); CREATININE FOR GFR 0.92 MG/DL (0.55-1.02); GLOMERULAR FILTRATION RATE > 60.0 (>32); GLUCOSE, FASTING 95 MG/DL (83-110); MAGNESIUM LEVEL 2.1 MG/DL (1.8-2.4); POTASSIUM SERUM 4.4 MEQ/L (3.5-5.1); SODIUM LEVEL 136 MEQ/L (136-145); TOTAL PROTEIN 6.5 GM/DL (6.4-8.2)
[2016-12-10] MEDS: DONEPEZIL 5 MG TAB PO SCH (10:13)
[2016-12-10] MEDS: ASPIRIN 81 MG ENTERIC TAB PO SCH (10:14)
[2016-12-10] MEDS: valACYclovir HCL 500 MG TAB PO SCH ×3 (10:14→20:54)
[2016-12-10] MEDS: DRONABINOL 2.5 MG CAP (MARINOL) PO SCH ×3 (10:14→16:50)
[2016-12-10] MEDS: LACTOBACILLUS ACIDOPHILUS CAP (BACID) PO SCH ×2 (10:14→20:53)
[2016-12-10] MEDS: LIOTHYRONINE 25 MCG TAB PO SCH (10:14)
[2016-12-10] MEDS: PANTOPRAZOLE 40MG TAB (PROTONIX) PO SCH (10:15)
[2016-12-10] MEDS: MAGNESIUM OXIDE 400 MG TAB (MAG-OX) PO SCH ×2 (10:15→20:54)
[2016-12-10] MEDS: VERAPAMIL 180 MG SR TAB PO SCH (10:15)
[2016-12-10] MEDS: amLODIPine 5 MG TAB PO SCH (10:15)
[2016-12-10] MEDS: HEPARIN SOD (PORCINE) 5000 UNITS/ML VIAL SC SCH ×2 (10:16→20:54)
[2016-12-10] MEDS: CALAMINE LOTION 177 ML BTL TOP SCH ×3 (10:16→20:55)
[2016-12-10] MEDS: ACETAMINOPHEN TAB 650MG DOSE (2X325MG) PO PRN (10:17)
--- NOTE | 2016-12-10 13:05 | IPNPDOC ---
Text Note Date of Service The patient was seen on 12/10/16. NOTE Subjective: Patient is an 81 year old female with a PMHx of Alzheimer's dementia, CKD3, CAD, HTN and Hypothyroidism who was brought to the ER by family because of nausea, vomiting and failure to take medications. She was found to have electrolyte abnormalities, rhabdomyolysis and elevated blood pressure. She was also noted to be severely hypothyroid. Patient was admitted to hospitalist service. Patient was seen and examined at the bedside. She notes that her left leg and buttock region are in pain this morning. She denies any other issues. Objective: Vitals (See below) General: Lying in bed, no acute distress, comfortable, Awake and alert HEENT: NC, AT CVS: RRR, +S1S2 Lungs: Fair air entry b/l, -w/r/r Abdomen: Soft, ND, NT, +BSx4 Extremities: +PPx4, - Edema, - Calf tenderness Assessment and plan: 1. Rash on left leg - likely 2/2 herpes zoster - Presented since 12/07/2016 - Appears like multiple blisters on distribution of single dermatome; continues to persist - no new lesions - c/w Valacyclovir (Day 3 of 7) - c/w symptomatic relief with Calamine lotion and Tramadol (low dose) for pain control 2. Dementia with poor oral intake - c/w Dronabinol - Looking for placement options; will require 30/11 care - Daughter has indicated that she wants the patient to go home - Will reconsult physical therapy 3. Severe hypothyroidism - 2/2 non-compliance with medications - s/p IV levothyroxine and stress dose of steroids - c/w Levothyroxine 112.5 PO 4. s/p Hyponatremia - likely 2/2 hypovolemia and hypothyroidism - s/p IV fluids 5. s/p Nausea and Vomiting - likely 2/2 constipation - c/w bowel regimen 6. s/p Hypertensive urgency - 2/2 non-compliance - c/w Amlodipine and Verapamil 7. CAD - c/w ASA, Atorvastatin, 8. Elevated Cr - less likely CKD3 - Cr better than baseline 9. Constipation - c/w bowel regimen 10. DVT prophylaxis - c/w Heparin Disposition: - Possible home placement if cleared by physical therapy; will restart PT - c/w Antiviral treatment for Herpes Zoster for 7 days VSLeif, I+O VS, Fishbone, I+O Laboratory Tests 12/10/16 06:24 Red Blood Count 3.40 L, Mean Corpuscular Volume 97.1 H, Mean Corpuscular Hemoglobin 33.0, Mean Corpuscular Hemoglobin Concent 33.9, Red Cell Distribution Width 12.6, Neutrophils (%) (Auto) 49.1, Lymphocytes (%) (Auto) 23.0 L, Monocytes (%) (Auto) 17.2 H, Eosinophils (%) (Auto) 4.2 H, Basophils (% ) (Auto) 1.1 H, Neutrophils # (Auto) 1.9, Lymphocytes # (Auto) 1.1 L, Monocytes # (Auto) 0.7, Eosinophils # (Auto) 0.2, Basophils # (Auto) 0.0, Calcium Level 8.9, Aspartate Amino Transf (AST/SGOT) 37, Alanine Aminotransferase (ALT/SGPT) 52, Alkaline Phosphatase 90, Total Bilirubin 0.3, Total Protein 6.5, Albumin 3.0 L Vital Signs Date Time Temp Pulse Resp B/P (MAP) Pulse Ox O2 Delivery O2 Flow Rate FiO2 12/10/16 10:15 84 144/50 12/10/16 06:00 97.2 17 98 Room Air I&O- Last 24 Hours up to 6 AM 12/10/16 06:00 Intake Total 700 ml Output Total 0 ml Balance 700 ml BRAD KRISHNA MD Dec 10, 2016 13:05
[2016-12-10] MEDS: ATORVASTATIN 20 MG TAB PO SCH (20:54)
[2016-12-11] MEDS: LEVOTHYROXINE 100MCG TABLET (0.1MG) PO SCH (05:49)
[2016-12-11 06:00] VITALS: BP 135/68
[2016-12-11 06:17] LABS: EOS # 0.2 K/mm3 (0.0-0.50); EOS % 5.9 % (0.0-3.0); LARGE UNSTAINED CELL # 0.2 K/mm3 (0.0-0.4); LARGE UNSTAINED CELL % 5.4 % (0.0-4.0); LYMPH # 1.3 K/mm3 (1.5-4.5); LYMPH % 26.3 % (24.0-44.0); MEAN CORPUSCULAR HGB CONC 33.8 g/dl (32.0-36.5); MEAN CORPUSCULAR VOLUME 97.7 fl (80.0-96.0); MONO # 0.5 K/mm3 (0.0-0.8); MONO % 12.1 % (0.0-5.0); NEUTROPHILS % 49.4 % (36.0-66.0); PLATELET COUNT, AUTOMATED 234 k/mm3 (150-450); RED CELL DISTRIBUTION WIDTH 12.7 % (11.5-14.5)
[2016-12-11 06:45] LABS: ALBUMIN 3.1 GM/DL (3.2-5.2); ALBUMIN/GLOBULIN RATIO 0.84 (1.00-1.93); ALKALINE PHOSPHATASE 95 U/L (45-117); ALT/SGPT 52 U/L (12-78); ANION GAP 11 MEQ/L (8-16); AST/SGOT 34 U/L (15-37); BILIRUBIN,TOTAL 0.4 MG/DL (0.2-1.0); BLOOD UREA NITROGEN 20 MG/DL (7-18); CALCIUM LEVEL 8.9 MG/DL (8.8-10.2); CARBON DIOXIDE LEVEL 24 MEQ/L (21-32); CHLORIDE LEVEL 100 MEQ/L (98-107); CREATININE FOR GFR 0.95 MG/DL (0.55-1.02); GLOMERULAR FILTRATION RATE > 60.0 (>32); GLUCOSE, FASTING 95 MG/DL (83-110); MAGNESIUM LEVEL 2.1 MG/DL (1.8-2.4); POTASSIUM SERUM 4.4 MEQ/L (3.5-5.1); SODIUM LEVEL 135 MEQ/L (136-145); TOTAL PROTEIN 6.8 GM/DL (6.4-8.2)
[2016-12-11] MEDS: PANTOPRAZOLE 40MG TAB (PROTONIX) PO SCH (08:44)
[2016-12-11] MEDS: valACYclovir HCL 500 MG TAB PO SCH ×3 (08:44→20:47)
[2016-12-11] MEDS: LACTOBACILLUS ACIDOPHILUS CAP (BACID) PO SCH ×2 (08:44→20:47)
[2016-12-11] MEDS: HEPARIN SOD (PORCINE) 5000 UNITS/ML VIAL SC SCH ×2 (08:44→20:48)
[2016-12-11] MEDS: VERAPAMIL 180 MG SR TAB PO SCH (08:45)
[2016-12-11] MEDS: amLODIPine 5 MG TAB PO SCH (08:45)
[2016-12-11] MEDS: LIOTHYRONINE 25 MCG TAB PO SCH (08:45)
[2016-12-11] MEDS: DRONABINOL 2.5 MG CAP (MARINOL) PO SCH ×3 (08:45→17:16)
[2016-12-11] MEDS: ASPIRIN 81 MG ENTERIC TAB PO SCH (08:46)
[2016-12-11] MEDS: MAGNESIUM OXIDE 400 MG TAB (MAG-OX) PO SCH ×2 (08:46→20:48)
[2016-12-11] MEDS: DONEPEZIL 5 MG TAB PO SCH (08:46)
[2016-12-11] MEDS: CALAMINE LOTION 177 ML BTL TOP SCH ×3 (08:47→20:48)
--- NOTE | 2016-12-11 11:44 | IPNPDOC ---
Text Note Date of Service The patient was seen on 12/11/16. NOTE Subjective: Patient is an 81 year old female with a PMHx of Alzheimer's dementia, CKD3, CAD, HTN and Hypothyroidism who was brought to the ER by family because of nausea, vomiting and failure to take medications. She was found to have electrolyte abnormalities, rhabdomyolysis and elevated blood pressure. She was also noted to be severely hypothyroid. Patient was admitted to hospitalist service. Patient was seen and examined at the bedside. She denies any significant pain on her leg this morning. She notes that her appetite has still been poor. Yesterday, she had an episode of nausea and possible vomiting. No further events this morning. Objective: Vitals (See below) General: Lying in bed, no acute distress, comfortable, Awake and alert HEENT: NC, AT CVS: RRR, +S1S2 Lungs: Fair air entry b/l, -w/r/r Abdomen: Soft, ND, NT, +BSx4 Extremities: - Edema, - Calf tenderness Assessment and plan: 1. Rash on left leg - likely 2/2 herpes zoster - Presented since 12/07/2016 - Appears like multiple blisters on distribution of single dermatome; continues to persist - no new lesions - c/w Valacyclovir (Day 4 of 7) - c/w symptomatic relief with Calamine lotion and Tramadol (low dose) for pain control - Advised to have something to eat prior to Tramadol (re: possible nausea) 2. Dementia with poor oral intake - c/w Dronabinol - Looking for placement options; will require 24/7 care - Daughter has indicated that she wants the patient to go home - Physical therapy has been working with patient; will need subacute placement 3. Severe hypothyroidism - 2/2 non-compliance with medications - s/p IV levothyroxine and stress dose of steroids - c/w Levothyroxine 112.5 PO 4. s/p Hyponatremia - likely 2/2 hypovolemia and hypothyroidism - s/p IV fluids 5. s/p Nausea and Vomiting - likely 2/2 constipation - c/w bowel regimen 6. s/p Hypertensive urgency - 2/2 non-compliance - c/w Amlodipine and Verapamil 7. CAD - c/w ASA, Atorvastatin, 8. Elevated Cr - less likely CKD3 - Cr better than baseline 9. Constipation - c/w bowel regimen 10. DVT prophylaxis - c/w Heparin Disposition: - c/w Physical therapy - c/w Antiviral treatment for Herpes Zoster for 7 days VS,Fishbone, I+O VS, Fishbone, I+O Laboratory Tests 12/11/16 05:56 Red Blood Count 3.50 L, Mean Corpuscular Volume 97.7 H, Mean Corpuscular Hemoglobin 33.0, Mean Corpuscular Hemoglobin Concent 33.8, Red Cell Distribution Width 12.7, Neutrophils (%) (Auto) 49.4, Lymphocytes (%) (Auto) 26.3, Monocytes (%) (Auto) 12.1 H, Eosinophils (%) (Auto) 5.9 H, Basophils (%) ( Auto) 1.0, Neutrophils # (Auto) 2.0, Lymphocytes # (Auto) 1.3 L, Monocytes # ( Auto) 0.5, Eosinophils # (Auto) 0.2, Basophils # (Auto) 0.0, Calcium Level 8.9, Aspartate Amino Transf (AST/SGOT) 34, Alanine Aminotransferase (ALT/SGPT) 52, Alkaline Phosphatase 95, Total Bilirubin 0.4, Total Protein 6.8, Albumin 3.1 L Vital Signs Date Time Temp Pulse Resp B/P (MAP) Pulse Ox O2 Delivery O2 Flow Rate FiO2 12/11/16 08:45 76 136/70 12/11/16 06:00 98.8 18 95 12/10/16 20:55 Room Air I&O- Last 24 Hours up to 6 AM 12/11/16 05:59 Intake Total 660 ml Output Total 400 ml Balance 260 ml BRAD KRISHNA MD Dec 11, 2016 11:43
[2016-12-11] MEDS: ATORVASTATIN 20 MG TAB PO SCH (20:48)
[2016-12-12 05:49] LABS: BASO % 0.8 % (0.0-1.0); EOS # 0.2 K/mm3 (0.0-0.50); EOS % 4.1 % (0.0-3.0); LARGE UNSTAINED CELL # 0.3 K/mm3 (0.0-0.4); LARGE UNSTAINED CELL % 4.5 % (0.0-4.0); LYMPH # 1.3 K/mm3 (1.5-4.5); LYMPH % 21.9 % (24.0-44.0); MEAN CORPUSCULAR HEMOGLOBIN 33.1 pg (27.0-33.0); MEAN CORPUSCULAR HGB CONC 34.2 g/dl (32.0-36.5); MONO # 0.5 K/mm3 (0.0-0.8); MONO % 8.9 % (0.0-5.0); NEUTROPHILS # 3.5 K/mm3 (1.8-7.7); NEUTROPHILS % 59.8 % (36.0-66.0); PLATELET COUNT, AUTOMATED 283 k/mm3 (150-450); RED CELL DISTRIBUTION WIDTH 12.3 % (11.5-14.5); WHITE BLOOD COUNT 5.8 K/mm3 (4.0-10.0)
[2016-12-12] MEDS: LEVOTHYROXINE 100MCG TABLET (0.1MG) PO SCH (05:52)
[2016-12-12 06:00] VITALS: BP 127/75
[2016-12-12 06:22] LABS: ALBUMIN 3.3 GM/DL (3.2-5.2); ALBUMIN/GLOBULIN RATIO 0.92 (1.00-1.93); ALKALINE PHOSPHATASE 94 U/L (45-117); ALT/SGPT 51 U/L (12-78); ANION GAP 11 MEQ/L (8-16); AST/SGOT 28 U/L (15-37); BILIRUBIN,TOTAL 0.4 MG/DL (0.2-1.0); BLOOD UREA NITROGEN 18 MG/DL (7-18); CALCIUM LEVEL 9.1 MG/DL (8.8-10.2); CARBON DIOXIDE LEVEL 25 MEQ/L (21-32); CHLORIDE LEVEL 99 MEQ/L (98-107); CREATININE FOR GFR 0.82 MG/DL (0.55-1.02); GLOMERULAR FILTRATION RATE > 60.0 (>32); GLUCOSE, FASTING 96 MG/DL (83-110); MAGNESIUM LEVEL 2.1 MG/DL (1.8-2.4); POTASSIUM SERUM 4.1 MEQ/L (3.5-5.1); SODIUM LEVEL 135 MEQ/L (136-145); TOTAL PROTEIN 6.9 GM/DL (6.4-8.2)
[2016-12-12] MEDS: HEPARIN SOD (PORCINE) 5000 UNITS/ML VIAL SC SCH ×2 (08:54→20:48)
[2016-12-12] MEDS: LIOTHYRONINE 25 MCG TAB PO SCH (08:54)
[2016-12-12] MEDS: valACYclovir HCL 500 MG TAB PO SCH ×3 (08:55→20:46)
[2016-12-12] MEDS: DONEPEZIL 5 MG TAB PO SCH (08:55)
[2016-12-12] MEDS: ASPIRIN 81 MG ENTERIC TAB PO SCH (08:55)
[2016-12-12] MEDS: DRONABINOL 2.5 MG CAP (MARINOL) PO SCH ×2 (08:55→12:20)
[2016-12-12] MEDS: MAGNESIUM OXIDE 400 MG TAB (MAG-OX) PO SCH ×2 (08:55→20:47)
[2016-12-12] MEDS: VERAPAMIL 180 MG SR TAB PO SCH (08:55)
[2016-12-12] MEDS: LACTOBACILLUS ACIDOPHILUS CAP (BACID) PO SCH ×2 (08:56→20:47)
[2016-12-12] MEDS: PANTOPRAZOLE 40MG TAB (PROTONIX) PO SCH (08:56)
[2016-12-12] MEDS: amLODIPine 5 MG TAB PO SCH (08:56)
[2016-12-12] MEDS: CALAMINE LOTION 177 ML BTL TOP SCH ×3 (08:56→20:50)
--- NOTE | 2016-12-12 13:25 | IPNPDOC ---
Text Note Date of Service The patient was seen on 12/12/16. NOTE Subjective: Patient is an 81 year old female with a PMHx of Alzheimer's dementia, CKD3, CAD, HTN and Hypothyroidism who was brought to the ER by family because of nausea, vomiting and failure to take medications. She was found to have electrolyte abnormalities, rhabdomyolysis and elevated blood pressure. She was also noted to be severely hypothyroid. Patient was admitted to hospitalist service. Patient was seen and examined at the bedside. She is sitting up in bed with a bed tray in front of her, she notes that her appetite is still poor. She denies any leg pain this morning. Objective: Vitals (See below) General: Lying in bed, no acute distress, comfortable, Awake and alert HEENT: NC, AT CVS: RRR, +S1S2 Lungs: Fair air entry b/l, -w/r/r Abdomen: Soft, ND, NT, +BSx4 Extremities: - Edema, - Calf tenderness Assessment and plan: 1. Rash on left leg - likely 2/2 herpes zoster - Presented since 12/07/2016 - Appears like multiple blisters on distribution of single dermatome; continues to persist - no new lesions - c/w Valacyclovir (Day 5 of 7) - c/w symptomatic relief with Calamine lotion and Tramadol (low dose) for pain control - Advised to have something to eat prior to Tramadol (re: possible nausea) 2. Dementia with poor oral intake - will discontinue Dronabinol; no change in appetite - Looking for placement options; will require / care - Daughter noted that she plans on taking her home; however at this time PT has indicated that she will need subacute placement - c/w physical therapy 3. Severe hypothyroidism - 2/2 non-compliance with medications - s/p IV levothyroxine and stress dose of steroids - c/w Levothyroxine 112.5 PO 4. s/p Hyponatremia - likely 2/2 hypovolemia and hypothyroidism - s/p IV fluids 5. s/p Nausea and Vomiting - likely 2/2 constipation - c/w bowel regimen 6. s/p Hypertensive urgency - 2/2 non-compliance - c/w Amlodipine and Verapamil 7. CAD - c/w ASA, Atorvastatin, 8. Elevated Cr - less likely CKD3 - Cr better than baseline 9. Constipation - c/w bowel regimen 10. DVT prophylaxis - c/w Heparin Disposition: - c/w Physical therapy - c/w Antiviral treatment for Herpes Zoster for 7 days VS,Fishbone, I+O VS, Fishbone, I+O Laboratory Tests 12/12/16 05:25 Red Blood Count 3.51 L, Mean Corpuscular Volume 97.0 H, Mean Corpuscular Hemoglobin 33.1 H, Mean Corpuscular Hemoglobin Concent 34.2, Red Cell Distribution Width 12.3, Neutrophils (%) (Auto) 59.8, Lymphocytes (%) (Auto) 21.9 L, Monocytes (%) (Auto) 8.9 H, Eosinophils (%) (Auto) 4.1 H, Basophils (%) (Auto) 0.8, Neutrophils # (Auto) 3.5, Lymphocytes # (Auto) 1.3 L, Monocytes # ( Auto) 0.5, Eosinophils # (Auto) 0.2, Basophils # (Auto) 0.0, Calcium Level 9.1, Aspartate Amino Transf (AST/SGOT) 28, Alanine Aminotransferase (ALT/SGPT) 51, Alkaline Phosphatase 94, Total Bilirubin 0.4, Total Protein 6.9, Albumin 3.3 Vital Signs Date Time Temp Pulse Resp B/P (MAP) Pulse Ox O2 Delivery O2 Flow Rate FiO2 12/12/16 09:00 Room Air 12/12/16 08:56 84 127/75 12/12/16 06:00 98.8 17 90 I&O- Last 24 Hours up to 6 AM 12/12/16 05:59 Intake Total 600 ml Output Total 1450 ml Balance -850 ml BRAD KRISHNA MD Dec 12, 2016 13:25
[2016-12-12] MEDS: traMADol 50 MG TAB PO PRN (20:46)
[2016-12-12] MEDS: ATORVASTATIN 20 MG TAB PO SCH (20:47)
[2016-12-13] MEDS: LEVOTHYROXINE 100MCG TABLET (0.1MG) PO SCH (05:57)
[2016-12-13 06:00] VITALS: BP 138/76
[2016-12-13 06:14] LABS: BASO % 0.8 % (0.0-1.0); EOS # 0.2 K/mm3 (0.0-0.50); EOS % 3.6 % (0.0-3.0); LARGE UNSTAINED CELL # 0.2 K/mm3 (0.0-0.4); LARGE UNSTAINED CELL % 3.4 % (0.0-4.0); LYMPH # 1.5 K/mm3 (1.5-4.5); LYMPH % 23.1 % (24.0-44.0); MEAN CORPUSCULAR HEMOGLOBIN 32.8 pg (27.0-33.0); MEAN CORPUSCULAR HGB CONC 33.8 g/dl (32.0-36.5); MEAN CORPUSCULAR VOLUME 96.9 fl (80.0-96.0); MONO # 0.5 K/mm3 (0.0-0.8); MONO % 9.2 % (0.0-5.0); NEUTROPHILS # 3.5 K/mm3 (1.8-7.7); NEUTROPHILS % 60.1 % (36.0-66.0); PLATELET COUNT, AUTOMATED 268 k/mm3 (150-450); RED CELL DISTRIBUTION WIDTH 12.7 % (11.5-14.5); WHITE BLOOD COUNT 5.9 K/mm3 (4.0-10.0)
[2016-12-13 06:31] LABS: ALBUMIN 3.1 GM/DL (3.2-5.2); ALBUMIN/GLOBULIN RATIO 0.84 (1.00-1.93); ALKALINE PHOSPHATASE 92 U/L (45-117); ALT/SGPT 42 U/L (12-78); ANION GAP 9 MEQ/L (8-16); AST/SGOT 23 U/L (15-37); BILIRUBIN,TOTAL 0.5 MG/DL (0.2-1.0); BLOOD UREA NITROGEN 16 MG/DL (7-18); CARBON DIOXIDE LEVEL 26 MEQ/L (21-32); CHLORIDE LEVEL 100 MEQ/L (98-107); CREATININE FOR GFR 0.72 MG/DL (0.55-1.02); GLOMERULAR FILTRATION RATE > 60.0 (>32); GLUCOSE, FASTING 93 MG/DL (83-110); MAGNESIUM LEVEL 1.9 MG/DL (1.8-2.4); SODIUM LEVEL 135 MEQ/L (136-145); TOTAL PROTEIN 6.8 GM/DL (6.4-8.2)
[2016-12-13] MEDS: DONEPEZIL 5 MG TAB PO SCH (09:39)
[2016-12-13] MEDS: LIOTHYRONINE 25 MCG TAB PO SCH (09:39)
[2016-12-13] MEDS: VERAPAMIL 180 MG SR TAB PO SCH (09:40)
[2016-12-13] MEDS: amLODIPine 5 MG TAB PO SCH (09:40)
[2016-12-13] MEDS: PANTOPRAZOLE 40MG TAB (PROTONIX) PO SCH (09:40)
[2016-12-13] MEDS: MAGNESIUM OXIDE 400 MG TAB (MAG-OX) PO SCH ×2 (09:40→22:40)
[2016-12-13] MEDS: ASPIRIN 81 MG ENTERIC TAB PO SCH (09:40)
[2016-12-13] MEDS: valACYclovir HCL 500 MG TAB PO SCH ×3 (09:40→22:42)
[2016-12-13] MEDS: LACTOBACILLUS ACIDOPHILUS CAP (BACID) PO SCH ×2 (09:40→22:40)
[2016-12-13] MEDS: CALAMINE LOTION 177 ML BTL TOP SCH ×3 (09:42→22:41)
--- NOTE | 2016-12-13 09:55 | IPNPDOC ---
Text Note Date of Service The patient was seen on 12/13/16. NOTE Subjective: Patient is an 81 year old female with a PMHx of Alzheimer's dementia, CKD3, CAD, HTN and Hypothyroidism who was brought to the ER by family because of nausea, vomiting and failure to take medications. She was found to have electrolyte abnormalities, rhabdomyolysis and elevated blood pressure. She was also noted to be severely hypothyroid. Patient was admitted to hospitalist service. Patient was seen and examined at the bedside. Patient has been noting some pain in her left thigh. No other pain reported. Objective: Vitals (See below) General: Lying in bed, no acute distress, comfortable, Awake and alert HEENT: NC, AT CVS: RRR, +S1S2 Lungs: Fair air entry b/l, -w/r/r Abdomen: Soft, ND, NT, +BSx4 Extremities: - Edema, - Calf tenderness Rash: Dry and crusting lesions of zoster noted on her left back and extending down dermatomal pattern down to lateral knee Assessment and plan: 1. Rash on left leg - likely 2/2 herpes zoster - Presented since 12/07/2016 - Lesions are dry and crusting; standard precautions to be followed; no airborne isolation required at this point - Nursing staff overnight concerned with airborne precautions; however lesions appear dry and crusting at this time - c/w Valacyclovir (Day 6 of ) - c/w symptomatic relief with Calamine lotion and Tramadol (low dose) for pain control 2. Dementia with poor oral intake - Poor oral intake - Looking for placement options; will require 30/11 care - c/w physical therapy; will need placement in subacute rehab today 3. Severe hypothyroidism - 2/2 non-compliance with medications - s/p IV levothyroxine and stress dose of steroids - c/w Levothyroxine 112.5 PO 4. s/p Hyponatremia - likely 2/2 hypovolemia and hypothyroidism - s/p IV fluids 5. s/p Nausea and Vomiting - likely 2/2 constipation - c/w bowel regimen 6. s/p Hypertensive urgency - 2/2 non-compliance - c/w Amlodipine and Verapamil 7. CAD - c/w ASA, Atorvastatin, 8. Elevated Cr - less likely CKD3 - Cr better than baseline 9. Constipation - c/w bowel regimen 10. DVT prophylaxis - c/w Heparin Disposition: - c/w Physical therapy - c/w Antiviral treatment for Herpes Zoster for 7 days VS,Fishbone, I+O VS, Fishbone, I+O Laboratory Tests 12/13/16 05:51 Red Blood Count 3.59 L, Mean Corpuscular Volume 96.9 H, Mean Corpuscular Hemoglobin 32.8, Mean Corpuscular Hemoglobin Concent 33.8, Red Cell Distribution Width 12.7, Neutrophils (%) (Auto) 60.1, Lymphocytes (%) (Auto) 23.1 L, Monocytes (%) (Auto) 9.2 H, Eosinophils (%) (Auto) 3.6 H, Basophils (%) (Auto) 0.8, Neutrophils # (Auto) 3.5, Lymphocytes # (Auto) 1.5, Monocytes # ( Auto) 0.5, Eosinophils # (Auto) 0.2, Basophils # (Auto) 0.0, Calcium Level 9.0, Aspartate Amino Transf (AST/SGOT) 23, Alanine Aminotransferase (ALT/SGPT) 42, Alkaline Phosphatase 92, Total Bilirubin 0.5, Total Protein 6.8, Albumin 3.1 L Vital Signs Date Time Temp Pulse Resp B/P (MAP) Pulse Ox O2 Delivery O2 Flow Rate FiO2 12/13/16 09:40 79 141/65 12/13/16 06:00 98.2 17 92 Room Air I&O- Last 24 Hours up to 6 AM 12/13/16 06:00 Intake Total 600 ml Output Total 1450 ml Balance -850 ml BRAD KRISHNA MD Dec 13, 2016 09:55
[2016-12-13] MEDS: HEPARIN SOD (PORCINE) 5000 UNITS/ML VIAL SC SCH ×2 (11:21→22:41)
[2016-12-13 14:00] VITALS: BP 148/64
[2016-12-13] MEDS: DRONABINOL 2.5 MG CAP (MARINOL) PO SCH (16:55)
[2016-12-13] MEDS: ATORVASTATIN 20 MG TAB PO SCH (22:39)
[2016-12-14 06:00] VITALS: BP 130/73
[2016-12-14 06:20] LABS: BASO % 0.9 % (0.0-1.0); EOS # 0.3 K/mm3 (0.0-0.50); LARGE UNSTAINED CELL # 0.2 K/mm3 (0.0-0.4); LYMPH # 1.3 K/mm3 (1.5-4.5); LYMPH % 21.9 % (24.0-44.0); MEAN CORPUSCULAR HEMOGLOBIN 32.8 pg (27.0-33.0); MEAN CORPUSCULAR HGB CONC 34.3 g/dl (32.0-36.5); MEAN CORPUSCULAR VOLUME 95.7 fl (80.0-96.0); MONO # 0.5 K/mm3 (0.0-0.8); MONO % 9.9 % (0.0-5.0); NEUTROPHILS % 58.2 % (36.0-66.0); PLATELET COUNT, AUTOMATED 282 k/mm3 (150-450); RED CELL DISTRIBUTION WIDTH 12.7 % (11.5-14.5); WHITE BLOOD COUNT 5.2 K/mm3 (4.0-10.0)
[2016-12-14 06:29] LABS: ALBUMIN 3.2 GM/DL (3.2-5.2); ALBUMIN/GLOBULIN RATIO 0.86 (1.00-1.93); ALKALINE PHOSPHATASE 96 U/L (45-117); ALT/SGPT 47 U/L (12-78); ANION GAP 9 MEQ/L (8-16); AST/SGOT 21 U/L (15-37); BILIRUBIN,TOTAL 0.6 MG/DL (0.2-1.0); BLOOD UREA NITROGEN 17 MG/DL (7-18); CALCIUM LEVEL 9.2 MG/DL (8.8-10.2); CARBON DIOXIDE LEVEL 26 MEQ/L (21-32); CHLORIDE LEVEL 99 MEQ/L (98-107); GLOMERULAR FILTRATION RATE > 60.0 (>32); GLUCOSE, FASTING 94 MG/DL (83-110); MAGNESIUM LEVEL 1.9 MG/DL (1.8-2.4); POTASSIUM SERUM 3.9 MEQ/L (3.5-5.1); SODIUM LEVEL 134 MEQ/L (136-145); TOTAL PROTEIN 6.9 GM/DL (6.4-8.2)
[2016-12-14] MEDS: LEVOTHYROXINE 100MCG TABLET (0.1MG) PO SCH (06:52)
[2016-12-14] MEDS: LACTOBACILLUS ACIDOPHILUS CAP (BACID) PO SCH ×2 (09:00→20:29)
[2016-12-14] MEDS: LIOTHYRONINE 25 MCG TAB PO SCH (09:44)
[2016-12-14] MEDS: DRONABINOL 2.5 MG CAP (MARINOL) PO SCH ×3 (09:44→17:35)
[2016-12-14] MEDS: DONEPEZIL 5 MG TAB PO SCH (09:46)
[2016-12-14] MEDS: amLODIPine 5 MG TAB PO SCH (09:46)
[2016-12-14] MEDS: PANTOPRAZOLE 40MG TAB (PROTONIX) PO SCH (09:46)
[2016-12-14] MEDS: valACYclovir HCL 500 MG TAB PO SCH ×3 (09:46→20:29)
[2016-12-14] MEDS: MAGNESIUM OXIDE 400 MG TAB (MAG-OX) PO SCH ×2 (09:46→20:29)
[2016-12-14] MEDS: VERAPAMIL 180 MG SR TAB PO SCH (09:46)
[2016-12-14] MEDS: ASPIRIN 81 MG ENTERIC TAB PO SCH (09:46)
[2016-12-14] MEDS: HEPARIN SOD (PORCINE) 5000 UNITS/ML VIAL SC SCH ×2 (09:47→20:29)
[2016-12-14] MEDS: CALAMINE LOTION 177 ML BTL TOP SCH ×3 (09:48→20:30)
--- NOTE | 2016-12-14 13:03 | IPNPDOC ---
Text Note Date of Service The patient was seen on 12/14/16. NOTE Subjective: Patient is an 81 year old female with a PMHx of Alzheimer's dementia, CKD3, CAD, HTN and Hypothyroidism who was brought to the ER by family because of nausea, vomiting and failure to take medications. She was found to have electrolyte abnormalities, rhabdomyolysis and elevated blood pressure. She was also noted to be severely hypothyroid. Patient was admitted to hospitalist service. Patient was seen and examined at the bedside. Patient has no complaints this morning. Objective: Vitals (See below) General: Lying in bed, no acute distress, comfortable, Awake and alert HEENT: NC, AT CVS: RRR, +S1S2 Lungs: Fair air entry b/l, -w/r/r Abdomen: Soft, ND, NT, +BSx4 Extremities: - Edema, - Calf tenderness Assessment and plan: 1. Rash on left leg - likely 2/2 herpes zoster - Presented since 12/07/2016 - Lesions are dry and crusting - c/w Standard precautions only; no airborne precautions required - s/p Valacyclovir (Day 7 ; End 12/14/16) - c/w symptomatic relief with Calamine lotion and Tramadol (low dose) for pain control 2. Dementia with poor oral intake - Poor oral intake - Looking for placement options; will require 30/11 care - c/w physical therapy; will need placement in subacute rehab; daughter will not be able to provide requirements that PT has requested 3. Severe hypothyroidism - 2/2 non-compliance with medications - s/p IV levothyroxine and stress dose of steroids - c/w Levothyroxine 112.5 PO 4. s/p Hyponatremia - likely 2/2 hypovolemia and hypothyroidism - s/p IV fluids 5. s/p Nausea and Vomiting - likely 2/2 constipation - c/w bowel regimen 6. s/p Hypertensive urgency - 2/2 non-compliance - c/w Amlodipine and Verapamil 7. CAD - c/w ASA, Atorvastatin, 8. Elevated Cr - less likely CKD3 - Cr better than baseline 9. Constipation - c/w bowel regimen 10. DVT prophylaxis - c/w Heparin Disposition: - c/w Physical therapy - s/p Antiviral treatment VS,Fishbone, I+O VS, Fishbone, I+O Laboratory Tests 12/14/16 05:46 Red Blood Count 3.74 L, Mean Corpuscular Volume 95.7, Mean Corpuscular Hemoglobin 32.8, Mean Corpuscular Hemoglobin Concent 34.3, Red Cell Distribution Width 12.7, Neutrophils (%) (Auto) 58.2, Lymphocytes (%) (Auto) 21.9 L, Monocytes (%) (Auto) 9.9 H, Eosinophils (%) (Auto) 6.0 H, Basophils (%) (Auto) 0.9, Neutrophils # (Auto) 3.0, Lymphocytes # (Auto) 1.3 L, Monocytes # ( Auto) 0.5, Eosinophils # (Auto) 0.3, Basophils # (Auto) 0.0, Calcium Level 9.2, Aspartate Amino Transf (AST/SGOT) 21, Alanine Aminotransferase (ALT/SGPT) 47, Alkaline Phosphatase 96, Total Bilirubin 0.6, Total Protein 6.9, Albumin 3.2 Vital Signs Date Time Temp Pulse Resp B/P (MAP) Pulse Ox O2 Delivery O2 Flow Rate FiO2 12/14/16 09:46 80 130/60 12/14/16 06:00 97.8 16 97 Room Air I&O- Last 24 Hours up to 6 AM 12/14/16 06:00 Intake Total 60 ml Output Total 800 ml Balance -740 ml BRAD KRISHNA MD Dec 14, 2016 13:03
[2016-12-14] MEDS: ONDANSETRON 4 MG ORAL DISINTEGRATING TAB (S0181) SL PRN (17:56)
[2016-12-14] MEDS: ATORVASTATIN 20 MG TAB PO SCH (20:29)
[2016-12-15] MEDS: LEVOTHYROXINE 100MCG TABLET (0.1MG) PO SCH (05:47)
[2016-12-15 06:00] VITALS: BP 146/68
[2016-12-15 06:35] LABS: BASO % 0.9 % (0.0-1.0); EOS # 0.4 K/mm3 (0.0-0.50); EOS % 6.5 % (0.0-3.0); LARGE UNSTAINED CELL # 0.2 K/mm3 (0.0-0.4); LARGE UNSTAINED CELL % 2.6 % (0.0-4.0); LYMPH # 1.5 K/mm3 (1.5-4.5); LYMPH % 23.9 % (24.0-44.0); MEAN CORPUSCULAR HEMOGLOBIN 33.3 pg (27.0-33.0); MEAN CORPUSCULAR HGB CONC 34.6 g/dl (32.0-36.5); MEAN CORPUSCULAR VOLUME 96.3 fl (80.0-96.0); MONO # 0.6 K/mm3 (0.0-0.8); MONO % 9.7 % (0.0-5.0); NEUTROPHILS # 3.3 K/mm3 (1.8-7.7); NEUTROPHILS % 56.5 % (36.0-66.0); PLATELET COUNT, AUTOMATED 298 k/mm3 (150-450); RED CELL DISTRIBUTION WIDTH 13.1 % (11.5-14.5); WHITE BLOOD COUNT 5.8 K/mm3 (4.0-10.0)
[2016-12-15 06:49] LABS: ALBUMIN 3.1 GM/DL (3.2-5.2); ALBUMIN/GLOBULIN RATIO 0.89 (1.00-1.93); ALKALINE PHOSPHATASE 89 U/L (45-117); ALT/SGPT 41 U/L (12-78); ANION GAP 11 MEQ/L (8-16); AST/SGOT 23 U/L (15-37); BILIRUBIN,TOTAL 0.4 MG/DL (0.2-1.0); BLOOD UREA NITROGEN 16 MG/DL (7-18); CARBON DIOXIDE LEVEL 25 MEQ/L (21-32); CHLORIDE LEVEL 100 MEQ/L (98-107); CREATININE FOR GFR 0.84 MG/DL (0.55-1.02); GLOMERULAR FILTRATION RATE > 60.0 (>32); GLUCOSE, FASTING 96 MG/DL (83-110); MAGNESIUM LEVEL 2.1 MG/DL (1.8-2.4); POTASSIUM SERUM 4.2 MEQ/L (3.5-5.1); SODIUM LEVEL 136 MEQ/L (136-145); TOTAL PROTEIN 6.6 GM/DL (6.4-8.2)
[2016-12-15] MEDS: ASPIRIN 81 MG ENTERIC TAB PO SCH (08:21)
[2016-12-15] MEDS: HEPARIN SOD (PORCINE) 5000 UNITS/ML VIAL SC SCH ×2 (08:21→20:20)
[2016-12-15] MEDS: DRONABINOL 2.5 MG CAP (MARINOL) PO SCH ×3 (08:22→17:03)
[2016-12-15] MEDS: MAGNESIUM OXIDE 400 MG TAB (MAG-OX) PO SCH ×2 (08:22→20:19)
[2016-12-15] MEDS: DONEPEZIL 5 MG TAB PO SCH (08:22)
[2016-12-15] MEDS: amLODIPine 5 MG TAB PO SCH (08:22)
[2016-12-15] MEDS: PANTOPRAZOLE 40MG TAB (PROTONIX) PO SCH (08:22)
[2016-12-15] MEDS: VERAPAMIL 180 MG SR TAB PO SCH (08:22)
[2016-12-15] MEDS: valACYclovir HCL 500 MG TAB PO SCH (08:22)
[2016-12-15] MEDS: LIOTHYRONINE 25 MCG TAB PO SCH (08:23)
[2016-12-15] MEDS: CALAMINE LOTION 177 ML BTL TOP SCH ×3 (08:23→20:20)
[2016-12-15] MEDS: LACTOBACILLUS ACIDOPHILUS CAP (BACID) PO SCH ×2 (09:00→20:19)
--- NOTE | 2016-12-15 13:21 | IPNPDOC ---
Text Note Date of Service The patient was seen on 12/15/16. NOTE Subjective: Patient is an 81 year old female with a PMHx of Alzheimer's dementia, CKD3, CAD, HTN and Hypothyroidism who was brought to the ER by family because of nausea, vomiting and failure to take medications. She was found to have electrolyte abnormalities, rhabdomyolysis and elevated blood pressure. She was also noted to be severely hypothyroid. Patient was admitted to hospitalist service. Patient was seen and examined at the bedside. Patient has no complaints this morning. Objective: Vitals (See below) General: Sitting in chair, no acute distress, comfortable, Awake and alert HEENT: NC, AT CVS: RRR, +S1S2 Lungs: Fair air entry b/l, -w/r/r Abdomen: Soft, ND, NT, +BSx4 Extremities: - Edema, - Calf tenderness Assessment and plan: 1. Rash on left leg - likely 2/2 herpes zoster - Lesions are dry and crusting - c/w Standard precautions only; no airborne precautions required - s/p 7 days Valacyclovir - c/w symptomatic relief with Calamine lotion and Tramadol (low dose) for pain control 2. Dementia with poor oral intake - Poor oral intake - Looking for placement options; will require 24/7 care - c/w physical therapy; will need placement in subacute rehab; daughter will not be able to provide requirements that PT has requested 3. Severe hypothyroidism - 2/2 non-compliance with medications - s/p IV levothyroxine and stress dose of steroids - c/w Levothyroxine 112.5 PO 4. s/p Hyponatremia - likely 2/2 hypovolemia and hypothyroidism - s/p IV fluids 5. s/p Nausea and Vomiting - likely 2/2 constipation - c/w bowel regimen 6. s/p Hypertensive urgency - 2/2 non-compliance - c/w Amlodipine and Verapamil 7. CAD - c/w ASA, Atorvastatin, 8. Elevated Cr - Cr better than baseline 9. Constipation - c/w bowel regimen 10. DVT prophylaxis - c/w Heparin Disposition: - c/w Physical therapy - pending placement VS,Fishbone, I+O VS, Fishbone, I+O Laboratory Tests 12/15/16 06:09 Red Blood Count 3.50 L, Mean Corpuscular Volume 96.3 H, Mean Corpuscular Hemoglobin 33.3 H, Mean Corpuscular Hemoglobin Concent 34.6, Red Cell Distribution Width 13.1, Neutrophils (%) (Auto) 56.5, Lymphocytes (%) (Auto) 23.9 L, Monocytes (%) (Auto) 9.7 H, Eosinophils (%) (Auto) 6.5 H, Basophils (%) (Auto) 0.9, Neutrophils # (Auto) 3.3, Lymphocytes # (Auto) 1.5, Monocytes # ( Auto) 0.6, Eosinophils # (Auto) 0.4, Basophils # (Auto) 0.0 12/15/16 06:10 Calcium Level 9.0, Aspartate Amino Transf (AST/SGOT) 23, Alanine Aminotransferase (ALT/SGPT) 41, Alkaline Phosphatase 89, Total Bilirubin 0.4, Total Protein 6.6, Albumin 3.1 L Vital Signs Date Time Temp Pulse Resp B/P (MAP) Pulse Ox O2 Delivery O2 Flow Rate FiO2 12/15/16 08:22 64 146/68 12/15/16 06:00 97.6 16 98 Room Air I&O- Last 24 Hours up to 6 AM 12/15/16 06:00 Intake Total 1260 ml Output Total 650 ml Balance 610 ml LUCY ZAYAS MD Dec 15, 2016 13:20
[2016-12-15] MEDS: ATORVASTATIN 20 MG TAB PO SCH (20:19)
[2016-12-16] MEDS: LEVOTHYROXINE 100MCG TABLET (0.1MG) PO SCH (05:41)
[2016-12-16 06:00] VITALS: BP 132/62
[2016-12-16] MEDS: LACTOBACILLUS ACIDOPHILUS CAP (BACID) PO SCH ×2 (08:06→20:21)
[2016-12-16] MEDS: amLODIPine 5 MG TAB PO SCH (08:07)
[2016-12-16] MEDS: VERAPAMIL 180 MG SR TAB PO SCH (08:07)
[2016-12-16] MEDS: LIOTHYRONINE 25 MCG TAB PO SCH (08:07)
[2016-12-16] MEDS: DONEPEZIL 5 MG TAB PO SCH (08:07)
[2016-12-16] MEDS: MAGNESIUM OXIDE 400 MG TAB (MAG-OX) PO SCH ×2 (08:07→20:22)
[2016-12-16] MEDS: ASPIRIN 81 MG ENTERIC TAB PO SCH (08:07)
[2016-12-16] MEDS: PANTOPRAZOLE 40MG TAB (PROTONIX) PO SCH (08:07)
[2016-12-16] MEDS: CALAMINE LOTION 177 ML BTL TOP SCH ×3 (08:08→20:22)
[2016-12-16] MEDS: DRONABINOL 2.5 MG CAP (MARINOL) PO SCH ×3 (08:08→17:42)
[2016-12-16] MEDS: HEPARIN SOD (PORCINE) 5000 UNITS/ML VIAL SC SCH ×2 (08:11→20:22)
[2016-12-16] MEDS: ATORVASTATIN 20 MG TAB PO SCH (20:21)
[2016-12-16 22:00] VITALS: BP 123/55
[2016-12-17] MEDS: LEVOTHYROXINE 100MCG TABLET (0.1MG) PO SCH (05:45)
[2016-12-17 06:00] VITALS: BP 130/66
[2016-12-17] MEDS: DRONABINOL 2.5 MG CAP (MARINOL) PO SCH ×3 (09:43→17:50)
[2016-12-17] MEDS: ASPIRIN 81 MG ENTERIC TAB PO SCH (09:43)
[2016-12-17] MEDS: HEPARIN SOD (PORCINE) 5000 UNITS/ML VIAL SC SCH ×2 (09:43→21:00)
[2016-12-17] MEDS: VERAPAMIL 180 MG SR TAB PO SCH (09:43)
[2016-12-17] MEDS: PANTOPRAZOLE 40MG TAB (PROTONIX) PO SCH (09:43)
[2016-12-17] MEDS: LIOTHYRONINE 25 MCG TAB PO SCH (09:43)
[2016-12-17] MEDS: LACTOBACILLUS ACIDOPHILUS CAP (BACID) PO SCH ×2 (09:43→21:00)
[2016-12-17] MEDS: DONEPEZIL 5 MG TAB PO SCH (09:44)
[2016-12-17] MEDS: CALAMINE LOTION 177 ML BTL TOP SCH ×3 (09:44→21:00)
[2016-12-17] MEDS: MAGNESIUM OXIDE 400 MG TAB (MAG-OX) PO SCH ×2 (09:44→21:00)
[2016-12-17] MEDS: amLODIPine 5 MG TAB PO SCH (09:44)
[2016-12-17] MEDS: ONDANSETRON 4 MG ORAL DISINTEGRATING TAB (S0181) SL PRN (12:37)
[2016-12-17] MEDS: ATORVASTATIN 20 MG TAB PO SCH (21:00)
[2016-12-18] MEDS: LEVOTHYROXINE 100MCG TABLET (0.1MG) PO SCH (05:31)
[2016-12-18 06:00] VITALS: BP 142/65
[2016-12-18] MEDS: MAGNESIUM OXIDE 400 MG TAB (MAG-OX) PO SCH ×2 (08:19→20:31)
[2016-12-18] MEDS: VERAPAMIL 180 MG SR TAB PO SCH (08:19)
[2016-12-18] MEDS: PANTOPRAZOLE 40MG TAB (PROTONIX) PO SCH (08:19)
[2016-12-18] MEDS: amLODIPine 5 MG TAB PO SCH (08:19)
[2016-12-18] MEDS: ASPIRIN 81 MG ENTERIC TAB PO SCH (08:19)
[2016-12-18] MEDS: LIOTHYRONINE 25 MCG TAB PO SCH (08:19)
[2016-12-18] MEDS: LACTOBACILLUS ACIDOPHILUS CAP (BACID) PO SCH ×2 (08:19→20:31)
[2016-12-18] MEDS: DONEPEZIL 5 MG TAB PO SCH (08:19)
[2016-12-18] MEDS: DRONABINOL 2.5 MG CAP (MARINOL) PO SCH ×3 (08:19→18:04)
[2016-12-18] MEDS: HEPARIN SOD (PORCINE) 5000 UNITS/ML VIAL SC SCH ×2 (08:20→20:31)
[2016-12-18] MEDS: CALAMINE LOTION 177 ML BTL TOP SCH ×3 (08:20→20:33)
[2016-12-18] MEDS: ATORVASTATIN 20 MG TAB PO SCH (20:31)
[2016-12-18] MEDS: ACETAMINOPHEN TAB 650MG DOSE (2X325MG) PO PRN (20:33)
[2016-12-19] MEDS: LEVOTHYROXINE 100MCG TABLET (0.1MG) PO SCH (05:32)
[2016-12-19 06:00] VITALS: BP 145/67
[2016-12-19] MEDS: DRONABINOL 2.5 MG CAP (MARINOL) PO SCH ×3 (08:33→16:46)
[2016-12-19] MEDS: amLODIPine 5 MG TAB PO SCH (08:34)
[2016-12-19] MEDS: LIOTHYRONINE 25 MCG TAB PO SCH (08:34)
[2016-12-19] MEDS: ASPIRIN 81 MG ENTERIC TAB PO SCH (08:34)
[2016-12-19] MEDS: MAGNESIUM OXIDE 400 MG TAB (MAG-OX) PO SCH ×2 (08:35→20:16)
[2016-12-19] MEDS: VERAPAMIL 180 MG SR TAB PO SCH (08:35)
[2016-12-19] MEDS: DONEPEZIL 5 MG TAB PO SCH (08:35)
[2016-12-19] MEDS: PANTOPRAZOLE 40MG TAB (PROTONIX) PO SCH (08:35)
[2016-12-19] MEDS: LACTOBACILLUS ACIDOPHILUS CAP (BACID) PO SCH ×2 (08:35→20:16)
[2016-12-19] MEDS: HEPARIN SOD (PORCINE) 5000 UNITS/ML VIAL SC SCH ×2 (08:35→20:16)
[2016-12-19] MEDS: CALAMINE LOTION 177 ML BTL TOP SCH ×3 (08:36→20:16)
[2016-12-19] MEDS: traMADol 50 MG TAB PO PRN (08:46)
[2016-12-19] MEDS: ATORVASTATIN 20 MG TAB PO SCH (20:16)
[2016-12-20] MEDS: LEVOTHYROXINE 100MCG TABLET (0.1MG) PO SCH (05:33)
[2016-12-20 06:00] VITALS: BP 142/65
[2016-12-20] MEDS: LACTOBACILLUS ACIDOPHILUS CAP (BACID) PO SCH ×2 (07:54→20:19)
[2016-12-20] MEDS: MAGNESIUM OXIDE 400 MG TAB (MAG-OX) PO SCH ×2 (07:54→20:19)
[2016-12-20] MEDS: DONEPEZIL 5 MG TAB PO SCH (07:54)
[2016-12-20] MEDS: LIOTHYRONINE 25 MCG TAB PO SCH (07:55)
[2016-12-20] MEDS: DRONABINOL 2.5 MG CAP (MARINOL) PO SCH ×3 (07:55→16:33)
[2016-12-20] MEDS: amLODIPine 5 MG TAB PO SCH (07:55)
[2016-12-20] MEDS: VERAPAMIL 180 MG SR TAB PO SCH (07:55)
[2016-12-20] MEDS: PANTOPRAZOLE 40MG TAB (PROTONIX) PO SCH (07:56)
[2016-12-20] MEDS: ASPIRIN 81 MG ENTERIC TAB PO SCH (07:56)
[2016-12-20] MEDS: HEPARIN SOD (PORCINE) 5000 UNITS/ML VIAL SC SCH ×2 (07:56→20:19)
[2016-12-20] MEDS: ACETAMINOPHEN TAB 650MG DOSE (2X325MG) PO PRN (07:56)
[2016-12-20] MEDS: CALAMINE LOTION 177 ML BTL TOP SCH ×3 (07:57→20:20)
[2016-12-20] MEDS: ONDANSETRON 4 MG ORAL DISINTEGRATING TAB (S0181) SL PRN (12:36)
[2016-12-20] MEDS: ATORVASTATIN 20 MG TAB PO SCH (20:19)
[2016-12-20] MEDS: traMADol 50 MG TAB PO PRN (20:36)
[2016-12-21] MEDS: LEVOTHYROXINE 100MCG TABLET (0.1MG) PO SCH (05:43)
[2016-12-21 06:00] VITALS: BP 141/64
[2016-12-21] MEDS: ASPIRIN 81 MG ENTERIC TAB PO SCH (08:42)
[2016-12-21] MEDS: amLODIPine 5 MG TAB PO SCH (08:42)
[2016-12-21] MEDS: LACTOBACILLUS ACIDOPHILUS CAP (BACID) PO SCH ×2 (08:43→20:34)
[2016-12-21] MEDS: LIOTHYRONINE 25 MCG TAB PO SCH (08:43)
[2016-12-21] MEDS: VERAPAMIL 180 MG SR TAB PO SCH (08:43)
[2016-12-21] MEDS: MAGNESIUM OXIDE 400 MG TAB (MAG-OX) PO SCH ×2 (08:43→20:34)
[2016-12-21] MEDS: DRONABINOL 2.5 MG CAP (MARINOL) PO SCH ×3 (08:43→17:30)
[2016-12-21] MEDS: HEPARIN SOD (PORCINE) 5000 UNITS/ML VIAL SC SCH ×2 (08:43→20:38)
[2016-12-21] MEDS: DONEPEZIL 5 MG TAB PO SCH (08:43)
[2016-12-21] MEDS: PANTOPRAZOLE 40MG TAB (PROTONIX) PO SCH (08:43)
[2016-12-21] MEDS: CALAMINE LOTION 177 ML BTL TOP SCH ×3 (08:44→20:35)
[2016-12-21] MEDS: ATORVASTATIN 20 MG TAB PO SCH (20:34)
[2016-12-21] MEDS: traMADol 50 MG TAB PO PRN (20:35)
[2016-12-22] MEDS: LEVOTHYROXINE 100MCG TABLET (0.1MG) PO SCH (05:32)
[2016-12-22 05:39] VITALS: BP 152/80
[2016-12-22] MEDS: LIOTHYRONINE 25 MCG TAB PO SCH (08:02)
[2016-12-22] MEDS: HEPARIN SOD (PORCINE) 5000 UNITS/ML VIAL SC SCH ×2 (08:02→20:25)
[2016-12-22] MEDS: CALAMINE LOTION 177 ML BTL TOP SCH ×3 (08:03→20:25)
[2016-12-22] MEDS: DRONABINOL 2.5 MG CAP (MARINOL) PO SCH ×3 (08:03→17:44)
[2016-12-22] MEDS: PANTOPRAZOLE 40MG TAB (PROTONIX) PO SCH (08:03)
[2016-12-22] MEDS: ASPIRIN 81 MG ENTERIC TAB PO SCH (08:03)
[2016-12-22] MEDS: MAGNESIUM OXIDE 400 MG TAB (MAG-OX) PO SCH ×2 (08:03→20:24)
[2016-12-22] MEDS: DONEPEZIL 5 MG TAB PO SCH (08:03)
[2016-12-22] MEDS: LACTOBACILLUS ACIDOPHILUS CAP (BACID) PO SCH ×2 (08:03→20:24)
[2016-12-22] MEDS: amLODIPine 5 MG TAB PO SCH (08:03)
[2016-12-22] MEDS: VERAPAMIL 180 MG SR TAB PO SCH (08:03)
--- NOTE | 2016-12-22 13:03 | IPNPDOC ---
Text Note Date of Service The patient was seen on 12/22/16. NOTE Subjective: Patient is an 81 year old female with a PMHx of Alzheimer's dementia, CKD3, CAD, HTN and Hypothyroidism who was brought to the ER by family because of nausea, vomiting and failure to take medications. She was found to have electrolyte abnormalities, rhabdomyolysis and elevated blood pressure. She was also noted to be severely hypothyroid. Patient was admitted to hospitalist service. Patient was seen and examined at the bedside. She does not report any events over night. Denies any new complaints. Objective: Vitals (See below) General: Sitting in chair, no acute distress, comfortable, Awake and alert HEENT: NC, AT CVS: RRR, +S1S2 Lungs: Fair air entry b/l, -w/r/r Abdomen: Soft, ND, NT, +BSx4 Extremities: - Edema, - Calf tenderness Assessment and plan: 1. s/p Rash on left leg - likely 2/2 herpes zoster - Lesions are dry and crusting - c/w Standard precautions only; no airborne precautions required - s/p 7 days Valacyclovir - c/w symptomatic relief with Calamine lotion and Tramadol (low dose) for pain control 2. Dementia with poor oral intake - Poor oral intake - Looking for placement options; will require 24/7 care - c/w physical therapy - Daughter has expressed that she wants to take her mother home; however she is unable to demonstrate the skill required for this to physical therapy - Bed offer at placement site has been rejected 3. Severe hypothyroidism - 2/2 non-compliance with medications - s/p IV levothyroxine and stress dose of steroids - c/w Levothyroxine 112.5 PO 4. s/p Hyponatremia - likely 2/2 hypovolemia and hypothyroidism - s/p IV fluids 5. s/p Nausea and Vomiting - likely 2/2 constipation - c/w bowel regimen 6. s/p Hypertensive urgency - 2/2 non-compliance - c/w Amlodipine and Verapamil 7. CAD - c/w ASA, Atorvastatin, 8. Elevated Cr - Cr better than baseline 9. Constipation - c/w bowel regimen 10. DVT prophylaxis - c/w Heparin Disposition: - c/w Physical therapy - Will need placement; but daughter wants to take her home - does not seem possible at this time; given lack of skill required Leif SHERMAN, I+O VS, Fishbone, I+O Vital Signs Date Time Temp Pulse Resp B/P (MAP) Pulse Ox O2 Delivery O2 Flow Rate FiO2 12/22/16 08:03 152/80 12/22/16 06:00 97.1 79 15 97 Room Air I&O- Last 24 Hours up to 6 AM 12/22/16 06:00 Intake Total 660 ml Output Total 625 ml Balance 35 ml BRAD KRISHNA MD Dec 22, 2016 13:03
[2016-12-22] MEDS: ATORVASTATIN 20 MG TAB PO SCH (20:24)
[2016-12-23] MEDS: LEVOTHYROXINE 100MCG TABLET (0.1MG) PO SCH (05:48)
[2016-12-23] MEDS: traMADol 50 MG TAB PO PRN (05:50)
[2016-12-23 06:00] VITALS: BP 142/65
[2016-12-23] MEDS: MAGNESIUM OXIDE 400 MG TAB (MAG-OX) PO SCH ×2 (08:41→20:07)
[2016-12-23] MEDS: PANTOPRAZOLE 40MG TAB (PROTONIX) PO SCH (08:42)
[2016-12-23] MEDS: amLODIPine 5 MG TAB PO SCH (08:42)
[2016-12-23] MEDS: DRONABINOL 2.5 MG CAP (MARINOL) PO SCH ×3 (08:42→16:44)
[2016-12-23] MEDS: DONEPEZIL 5 MG TAB PO SCH (08:42)
[2016-12-23] MEDS: ASPIRIN 81 MG ENTERIC TAB PO SCH (08:42)
[2016-12-23] MEDS: VERAPAMIL 180 MG SR TAB PO SCH (08:42)
[2016-12-23] MEDS: LACTOBACILLUS ACIDOPHILUS CAP (BACID) PO SCH ×2 (08:42→20:07)
[2016-12-23] MEDS: CALAMINE LOTION 177 ML BTL TOP SCH ×3 (08:43→20:08)
[2016-12-23] MEDS: LIOTHYRONINE 25 MCG TAB PO SCH (08:43)
[2016-12-23] MEDS: HEPARIN SOD (PORCINE) 5000 UNITS/ML VIAL SC SCH ×2 (08:43→20:08)
[2016-12-23] MEDS ORDERED: ATOR1TAB21 PO (16:17)
[2016-12-23] MEDS ORDERED: CYTO25TA6 PO (16:17)
[2016-12-23] MEDS ORDERED: MAG400TA PO (16:17)
[2016-12-23] MEDS ORDERED: ASPI81TAEC PO (16:17)
[2016-12-23] MEDS ORDERED: TRAM50TA2 PO (16:17)
[2016-12-23] MEDS ORDERED: AMLO5TAB2 PO (16:17)
[2016-12-23] MEDS: ATORVASTATIN 20 MG TAB PO SCH (20:07)
[2016-12-24] MEDS: LEVOTHYROXINE 100MCG TABLET (0.1MG) PO SCH (05:50)
[2016-12-24 06:00] VITALS: BP 135/63
[2016-12-24] MEDS: LACTOBACILLUS ACIDOPHILUS CAP (BACID) PO SCH (09:14)
[2016-12-24] MEDS: MAGNESIUM OXIDE 400 MG TAB (MAG-OX) PO SCH (09:14)
[2016-12-24] MEDS: LIOTHYRONINE 25 MCG TAB PO SCH (09:15)
[2016-12-24] MEDS: ASPIRIN 81 MG ENTERIC TAB PO SCH (09:15)
[2016-12-24] MEDS: HEPARIN SOD (PORCINE) 5000 UNITS/ML VIAL SC SCH (09:15)
[2016-12-24] MEDS: DRONABINOL 2.5 MG CAP (MARINOL) PO SCH (09:15)
[2016-12-24] MEDS: amLODIPine 5 MG TAB PO SCH (09:15)
[2016-12-24] MEDS: PANTOPRAZOLE 40MG TAB (PROTONIX) PO SCH (09:15)
[2016-12-24 09:16] VITALS: BP 135/63
[2016-12-24] MEDS: VERAPAMIL 180 MG SR TAB PO SCH (09:16)
[2016-12-24] MEDS: CALAMINE LOTION 177 ML BTL TOP SCH (09:16)
[2016-12-24] MEDS: DONEPEZIL 5 MG TAB PO SCH (09:16)
--- NOTE | 2016-12-24 13:22 | DSES ---
DATE OF ADMISSION: 10/24/2016 DATE OF DISCHARGE: 12/24/2016 ATTENDING PHYSICIANS: MD Cynthia Moralez MD Kareem Abed, MD David Flint, MD Jamarcus Mark MD DICTATED BY: Mavis Mandujano MD PRIMARY CARE PHYSICIAN: Unknown. REFERRING PHYSICIAN: None. CONSULTING PHYSICIANS: None. CONDITION ON DISCHARGE: Stable. FINAL DIAGNOSES: 1. Dementia with poor oral intake. 2. Herpes zoster. 3. Severe hypothyroidism. 4. Hyponatremia. 5. Hypertensive urgency. PROCEDURES: None. HISTORY OF PRESENT ILLNESS: Patient is an 81-year-old female with a past medical history of Alzheimer's dementia, chronic kidney disease III, coronary artery disease, hypertension and hypothyroidism, who presented to the ER and was brought in by family because of nausea, vomiting and failure to take medications. She was found to have electrolyte abnormalities, rhabdomyolysis, and elevated blood pressure. She was also noted to have severe hypothyroidism. The patient was admitted to the hospitalist service. HOSPITAL COURSE: 1. Status post rash on left leg likely secondary to herpes zoster. Lesions are dry and crusted. Patient was put on standard precautions. No air borne precautions were required. She has completed a seven day course of valacyclovir. She has been on symptomatic relief with calamine lotion and tramadol for pain control. Upon discharge, she was continued with tramadol orally only. 2. Dementia with poor oral intake. Looking for placement options. A care home has been found as she is requiring 24/7 care. She is to continue with physical therapy and requiring assistance with ambulation, and movement from bed to chair. The daughter expressed that she wanted to take her mother home, however she is unable to demonstrate the ability to do so. 3. Severe hypothyroidism secondary to noncompliance with medications. She is status post levothyroxine and stress dose of steroids. Continue with levothyroxine 112.5 mcg by mouth. 4. Status post hyponatremia. Likely secondary to hypovolemia and hypothyroidism. Status post IV fluid hydration. 5. Status post nausea and vomiting, likely secondary to constipation. Continue with bowel regimen. 6. Hypertensive urgency secondary to noncompliance with medications. Continue with amlodipine and verapamil. 7. Coronary artery disease. Continue with aspirin and atorvastatin. 8. Elevated creatinine. Creatinine is better than baseline. 9. Constipation. Continue with bowel regimen. 10. Deep vein thrombosis (DVT) prophylaxis. She has been on heparin subcutaneous as an inpatient. DISCHARGE MEDICATIONS: The patient will be discharged home with the following medication list: - amlodipine 5 mg by mouth daily - aspirin 81 mg by mouth daily - atorvastatin 20 mg by mouth at bedtime - liothyronine 12.5 mg by mouth daily - magnesium oxide 400 mg by mouth twice a day - tramadol 25 mg by mouth every 12 hours as needed pain Continued medications include: - docusate sodium 100 mg by mouth twice a day - donepezil 10 mg by mouth daily - levothyroxine 100 mg by mouth daily - memantine 20 mg by mouth twice a day - Protonix 40 mg by mouth daily - verapamil 180 mg by mouth daily Stopped medications include naproxen 500 mg by mouth twice a day with meals. DISCHARGE INSTRUCTIONS: The patient was advised to followup with her primary care provider within seven days. She was advised to remain compliant with treatment plan and medications. Return to the emergency room if she experiences any problems. Time spent on discharge greater than 35 minutes.
== END 2016-12-24 11:53 | DRG 644 ==
LOC: M ED 21:07 → EEVIPCON 10-24 02:07 → M ED INP 10-24 02:07 → M PCU 10-24 03:22 → M MSPAV 10-25 18:48 → M PCU 10-25 19:19 → M MSPAV 10-25 21:03
PROVIDERS: ADMIT Hospitalist; ATTEND Internal Medicine
DX: E03.9 Hypothyroidism, unspecified (principal); N17.9 Acute kidney failure, unspecified; E87.1 Hypo-osmolality and hyponatremia; E27.49 Other adrenocortical insufficiency; M62.82 Rhabdomyolysis; N39.0 Urinary tract infection, site not specified; F02.80 Dementia in other diseases classified elsewhere, unspecified severity, without behavioral disturbance, psychotic disturbance, mood disturbance, and anxiety; N18.3 Chronic kidney disease, stage 3 (moderate); I25.10 Atherosclerotic heart disease of native coronary artery without angina pectoris; B02.9 Zoster without complications; Z66 Do not resuscitate; I16.0 Hypertensive urgency; B96.20 Unspecified Escherichia coli [E. coli] as the cause of diseases classified elsewhere; I12.9 Hypertensive chronic kidney disease with stage 1 through stage 4 chronic kidney disease, or unspecified chronic kidney disease; K59.00 Constipation, unspecified; G30.9 Alzheimer's disease, unspecified; R11.2 Nausea with vomiting, unspecified; R63.0 Anorexia; E87.6 Hypokalemia; Z63.4 Disappearance and death of family member; Z87.891 Personal history of nicotine dependence; Z91.14 Patient's other noncompliance with medication regimen; Z79.899 Other long term (current) drug therapy